=== PATIENT | female | born 1945 | race Caucasian/White ===

== ENCOUNTER 2017-10-26 19:38 | Inpatient (IN) | payer OTHER, MEDICARE, MEDICAID ==
[~2017-10-26] VITALS: Ht 157.5 cm; Wt 83.5 kg
[~2017-10-26 19:38] MED LIST: ATORVASTATIN CA40 MG PO; BUMETANIDE0.25 MG/1 PO; DOLOPHINE HCL10 MG PO; GABAPENTIN 100100 MG PO; HYDROCHLOROTHIA25 M2 PO; HYZAAR 50-12.51 TAB PO; JANUMET 50-5001 EACH PO; KEFLEX500 MG PO; KLOR-CON 1010 MEQ PO; LEVOTHYROXINE0.05 MG PO; MEDROLDOSEPACK PO; METHADONE HCL 110 M1 PO; PEPCID20 MG PO; PROAIR HFA8.5 GM; SYMBICORT160 MCG/4. INH; TRAZODONE HCL50 MG PO; XARELTO15 MG PO
[2017-10-26 19:44] VITALS: BP 169/93
[2017-10-26 20:05] LABS: ABSOLUTE BASOPHILS 0.1 thou/uL (0.0-0.2); ABSOLUTE EOSINOPHILS 0.2 thou/uL (0.0-0.7); ABSOLUTE LYMPHOCYTES 2.1 thou/uL (0.8-5.3); ABSOLUTE NEUTROPHILS 5.4 thou/uL (1.6-8.1); EOSINOPHILS 1.9 %; HEMATOCRIT 41.3 % (37.0-47.0); HEMOGLOBIN 13.5 gm/dL (12.0-15.0); LYMPHOCYTES 24.2 %; MCH 29.6 pg (26.0-34.0); MCHC 32.7 g/dL (28.0-37.0); MCV 90.5 fL (80.0-100.0); MONOCYTES 11.5 %; MPV 7.5 fl. (7.2-11.1); NUCLEATED RBCS 0 /100WBC; PLATELET COUNT* 337 thou/uL (150-400); POLYS 61.4 %; RBC 4.56 mil/uL (4.20-5.00); RDW-CV 13.5 % (10.5-14.5); WBC 8.9 thou/uL (4.0-11.0)
[2017-10-26 20:13] LABS: ANION GAP < 0 mmol/L (7-16); BUN 10 mg/dL (7-18); CALCIUM 8.7 mg/dL (8.5-10.1); CHLORIDE 100 mmol/L (98-107); CO2 39 mmol/L (21-32); CREATININE 0.5 mg/dL (0.6-1.3); GLUCOSE 247 mg/dL (70-99); POTASSIUM 4.3 mmol/L (3.5-5.1); SODIUM 138 mmol/L (136-145)
[2017-10-26 20:15] LABS: APTT 25.4 Seconds (25.0-31.3); PROTIME 9.4 Seconds (9.20-11.50)
[2017-10-26 20:23] LABS: ALBUMIN 3.1 g/dL (3.4-5.0); ALKALINE PHOSPHATASE 103 U/L (46-116); LIPASE 55 U/L (73-393); MAGNESIUM 2.2 mg/dL (1.8-2.4); NT-PRO BRAIN NAT PEPTIDE 92 pg/mL (<300); SGOT 6 U/L (15-37); SGPT 13 U/L (30-65); TOTAL BILIRUBIN 0.3 mg/dL (<0.1-1.0); TOTAL PROTEIN 6.9 g/dL (6.4-8.2); TROPONIN-I LEVEL <0.06 ng/mL (<0.06)
[2017-10-26 22:42] VITALS: BP 130/76
[2017-10-26 22:50] VITALS: BP 136/74
[2017-10-26 22:54] LABS: BE 9.5 mmol/L (-2 to +3); HCO3 39.3 mmol/L (22.0-26.0); pH 7.312 (7.340-7.450)
[2017-10-26 22:55] LABS: PCO2 79.4 mmHg (35.0-45.0); PO2 320.5 mmHg (75.0-100.0)
[2017-10-26] MEDS ORDERED: XANAX 0.5 MG0.5 MG PO (23:07)
[2017-10-26] MEDS ORDERED: VICODIN 5-3001 EACH PO (23:08)
[2017-10-26] MEDS ORDERED: ADVAIR HFA 230M12 GM INH (23:10)
[2017-10-27 04:00] VITALS: BP 117/67
[2017-10-27 07:30] VITALS: BP 109/57
--- NOTE | 2017-10-27 10:08 | EKG ---
[place] [address] ELECTROCARDIOGRAM REPORT Name: BREANA GALEAS Room: [address] IN [facility].#: [id number] Admission: 10/26/17 Attend Phys: Marian Cosme MD Discharge: Date of : 45 Report #: [id number] THIS REPORT FOR: //name// [facility] ED Test Date: 2017-10-26 Test Time: 20:05:54 Pat Name: BREANA GALEAS Department: Room: Gender: F Ob Tech: AYDIN : 1945 Requested By: Mark Zabala Order Number: [id number] MD: Morgan Lima Measurements Intervals [place] Rate: 99 P: 76 OR: 138 QRS: 83 QRSD: 85 T: 70 QT: 335 QTc: 430 Interpretive Statements Sinus rhythm Borderline right axis deviation Borderline low voltage, extremity leads Baseline wander in lead(s) V6 Compared to ECG 02/06/2016 22:04:22 Atrial premature complex(es) no longer present Electronically Signed On 10-27-2017 10:08:37 CDT by Morgan Lima [email or web address] <ELECTRONICALLY SIGNED> By: Morgan Lima MD, FACC 10/27/17 1008 04 04 Morgan Lima MD, [facility] /EPI
[2017-10-27 11:24] LABS: BE 8.3 mmol/L (-2 to +3); HCO3 35.6 mmol/L (22.0-26.0); PO2 64.6 mmHg (75.0-100.0); pH 7.386 (7.340-7.450)
[2017-10-27 11:27] LABS: PCO2 60.8 mmHg (35.0-45.0)
[2017-10-27 12:00] VITALS: BP 136/50
[2017-10-27 16:00] VITALS: BP 130/73
[2017-10-27 20:00] VITALS: BP 130/67
[2017-10-27 23:48] VITALS: BP 110/53
[2017-10-28 03:29] VITALS: BP 128/71
[2017-10-28 04:06] LABS: BE 8.1 mmol/L (-2 to +3); HCO3 34.7 mmol/L (22.0-26.0); PO2 65.8 mmHg (75.0-100.0); pH 7.404 (7.340-7.450)
[2017-10-28 04:10] LABS: PCO2 56.7 mmHg (35.0-45.0)
[2017-10-28 07:15] VITALS: BP 135/62
[2017-10-28 12:22] VITALS: BP 141/69
[2017-10-28 15:52] VITALS: BP 132/72
--- NOTE | 2017-10-28 17:20 | 2DMMODE ---
[place] [address] 2 D/M-MODE ECHOCARDIOGRAM Name: BREANA GALEAS Nestor Room: [address] IN [facility] [id number] Admission: 10/26/17 Attend Phys: Marian Cosme, Discharge: Date of : 45 Date of Service: 10/28/17 1719 Report #: [id number] THIS REPORT FOR: //name// APPROVED REPORT Study performed: 10/28/2017 15:56:00 EXAM: Comprehensive 2D, Doppler, and color-flow Echocardiogram Patient Location: In-Patient Room #: 210 Status: routine BSA: 1.83 HR: 95 bpm BP: 132/72 mmHg Rhythm: NSR Other Information Study Quality: Good Indications COPD Dyspnea Respiratory failure 2D Dimensions LVEF(%): 72.43 (>50%) IVSd: 8.02 (7-11mm) LVOT Diam: 19.43 (18-24mm) LVDd: 45.88 mm PWd: 9.29 (7-11mm) Ascending Ao: 30.44 (22-36mm) LVDs: 26.86 (25-40mm) Aortic Root: 29.48 mm Espinoza's LVEF: 72.43 % Volumes Left Atrial Volume (Systole) LA ESV Index: 19.40 mL/m2 Aortic Valve AoV Peak David.: 1.31 m/s AO Peak Gr.: 6.84 mmHg LVOT Max P.17 mmHg AO Mean Gr.: 3.91 mmHg LVOT Mean P.10 mmHg LVOT Max V: 1.14 m/s AO V2 VTI: 23.70 cm LVOT Mean V: 0.65 m/s RADHA (VTI): 2.62 cm2 LVOT V1 VTI: 20.93 [place] [address] 2 D/M-MODE ECHOCARDIOGRAM Name: BREANA GALEAS Room: [address] IN [facility].#: [id number] Admission: 10/26/17 Attend Phys: Marian Cosme, Discharge: Date of : 45 Date of Service: 10/28/17 1719 Report #: [id number] Mitral Valve E/A Ratio: 0.90 MV Decel. Time: 240.35 ms MV E Max David.: 0.89 m/s MV PHT: 69.70 ms MVA (PHT): 3.16 cm2 TDI E/Lateral E': 7.42 E/Medial E': 11.13 Medial E' David.: 0.08 m/s Lateral E' David.: 0.12 m/s Pulmonary Valve PV Peak David.: 0.90 m/s PV Peak Gr.: 3.21 mmHg Tricuspid Valve TR Peak Gr.: 36.16 mmHg RVSP: 41.00 mmHg Left Ventricle The left ventricle is normal size. There is normal LV segmental wall motion. There is normal left ventricular wall thickness. Left ventricular systolic function is normal. The left ventricular ejection fraction is within the normal range. LVEF is 60-65%. Grade I - abnormal relaxation pattern. Right Ventricle The right ventricle is normal size. The right ventricular systolic function is normal. Atria The left atrium size is normal. The right atrium size is normal. Aortic Valve The aortic valve is normal in structure. No aortic regurgitation is present. There is no aortic valvular stenosis. Mitral Valve The mitral valve is normal in structure. Trace mitral regurgitation. No evidence of mitral valve stenosis. Tricuspid Valve The tricuspid valve is normal in structure. Trace tricuspid regurgitation. The RVSP is 40-45 [place] [address] 2 D/M-MODE ECHOCARDIOGRAM Name: BREANA GALEAS Room: [address]#: [id number] Admission: 10/26/17 Attend Phys: Marian Cosme, Discharge: Date of : 45 Date of Service: 10/28/17 1719 Report #: [id number] The pulmonary valve is normal in structure. There is no pulmonic valvular regurgitation. Great Vessels The aortic root is normal in size. IVC is normal in size and collapses with >50% inspiration Pericardium There is no pericardial effusion. <Conclusion> The left ventricle is normal size. There is normal left ventricular wall thickness. Left ventricular systolic function is normal. The left ventricular ejection fraction is within the normal range. LVEF is 60-65%. Grade I - abnormal relaxation pattern. The right ventricle is normal size. The left atrium size is normal. The aortic valve is normal in structure. The mitral valve is normal in structure. The tricuspid valve is normal in structure. IVC is normal in size and collapses with >50% inspiration There is no pericardial effusion. There is normal LV segmental wall motion. <ELECTRONICALLY SIGNED> By: Richar Mora MD, [facility] 10/28/171718 18 18 Richar Mora MD, FACC /INF
[2017-10-29] VITALS: BP 142/77
[2017-10-29 04:03] VITALS: BP 115/59
[2017-10-29 05:06] LABS: HEMATOCRIT 38.7 % (37.0-47.0); HEMOGLOBIN 12.7 gm/dL (12.0-15.0); MCH 29.7 pg (26.0-34.0); MCHC 32.9 g/dL (28.0-37.0); MCV 90.2 fL (80.0-100.0); MPV 7.8 fl. (7.2-11.1); NUCLEATED RBCS 0 /100WBC; PLATELET COUNT* 315 thou/uL (150-400); RBC 4.29 mil/uL (4.20-5.00); RDW-CV 13.2 % (10.5-14.5); WBC 9.8 thou/uL (4.0-11.0)
[2017-10-29 05:38] LABS: ALBUMIN 2.9 g/dL (3.4-5.0); CALCIUM 8.8 mg/dL (8.5-10.1); CREATININE 0.9 mg/dL (0.6-1.3); POTASSIUM 4.1 mmol/L (3.5-5.1); TOTAL BILIRUBIN 0.3 mg/dL (<0.1-1.0)
[2017-10-29 06:19] LABS: ABSOLUTE LYMPHOCYTES 1.3 thou/uL (0.8-5.3); ABSOLUTE MONOCYTES 0.2 thou/uL (0.0-1.2); ABSOLUTE NEUTROPHILS 8.3 thou/uL (1.6-8.1); ANISOCYTOSIS 1+; PLATELET ESTIMATE ADEQUATE; POIKILOCYTOSIS 1+
--- NOTE | 2017-10-29 07:44 | CON ---
[address] [address] CONSULTATION Name: BREANA GALEAS Room: [address] IN M.R.#: [id number] Admission: 10/26/17 Attend Phys: Marian Cosme MD Discharge: Date of : 45 Report #: [id number] THIS REPORT FOR: //name// CC: DR BECKI Cosme Physician staff REQUESTING PHYSICIAN: Dr. Hunter. REASON FOR CONSULTATION: Respiratory failure, history of COPD. DISCUSSION: The patient is a 72-year-old woman with history of underlying COPD. She is O2 dependent. She is a patient of Dr. Crawford and reportedly also sees pulmonary doctors at [facility], though she cannot tell me who the physician is. She was brought to the Emergency Department, was brought in via EMS because of worsening shortness of breath. En route, she was given additional breathing treatments, and her O2 was turned up. She was seen in the Emergency Department, she was hypercapnic with a pCO2 in the 70s. She was placed on BiPAP, which was removed this morning just shortly before my arrival as she wanted it off. She is a very poor historian. I did discuss with Dr. Hunter earlier this morning. She smokes daily. She cannot tell me how much she smokes. She notes in the past she has smoked up to 4-5 packs of cigarettes per day. She has had pulmonary function studies done, though she cannot tell me what they showed. When asked about a sleep study, I cannot get a definitive answer. She comments only that she has "had every test done that can be done." It has been sometime ago she did have bilateral leg DVT. Denies having any PEs. She has been chronically anticoagulated for at least several years. However, would not have any inpatient visits here at [place]. She is extremely vague as to what she has been doing at home as far as her breathing regimen is concerned. She is on O2. She does have a nebulizer, but cannot tell me for sure what medication she puts in this. She apparently has Advair, though it is not clear how compliant she has been with that. She does comment she has an albuterol inhaler, which she uses up to 4 times a day. It does not appear that she is steroid dependent. She does not have any kind of a BiPAP or noninvasive ventilator to use at home at night. She denies ever being intubated. She notes this morning, that she is feeling somewhat better. Denies any chest pain. Has had some minimal cough, bringing up only scant amounts of mucus. It has been clear. Denies [place] [address] CONSULTATION Name: BREANA GALEAS Room: [address] IN .R.#: [id number] Admission: 10/26/17 Attend Phys: Marian Cosme MD Discharge: Date of : 45 Report #: [id number] PAST MEDICAL HISTORY: Remarkable for the COPD as noted. Again, severity unknown. She has had bilateral knee replacements, has had episodes of angioedema several years ago. Diabetes mellitus, chronic back pain with debility. Uses wheelchair a lot, chronic narcotic use. She has had a chronic lower extremity edema, neuropathy, dyslipidemia, prior hysterectomy. SOCIAL HISTORY: Continues to smoke. Unknown how much. Note, she was previously between 4-5 packs of cigarettes per day. 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 FAMILY HISTORY: She does deny any lung problems in her family. However, question the reliability. Denies family history of thromboembolic disease. REVIEW OF SYSTEMS: Attempted to obtain from the patient. She has not been very forthcoming, is very quiet and reserved. She denies any nausea or vomiting. Denies any syncopal episodes. Respiratory HPI as noted above. She does tend towards chronic lower extremity edema. PHYSICAL EXAMINATION: GENERAL APPEARANCE: The patient is a woman who looks chronically ill. She does look older than her stated age. She is awake, but tends very slow to respond. Generally, she is appropriate. Very poor historian. HEENT: Head is normocephalic. Sclerae nonicteric. Mucous membranes look dry. Does not appear to have any thrush. NECK: Negative for adenopathy. Neck veins do look a little full. HEART: Regular. No S3 is heard. Has a grade 1/6 systolic murmur. LUNGS: Show breath sounds to be diminished. She has a prolonged expiratory phase. No wheezing or crackles are heard. She has no clubbing. SKIN: Turgor is fair. ABDOMEN: Mildly obese, but soft, without appreciable hepatosplenomegaly. There is no definite guarding or rebound noted. EXTREMITIES: She has some chronic venous stasis changes noted in lower extremities. She denies any calf pain. NEUROLOGIC: Alert, oriented. LABORATORY AND X-RAY FINDINGS: Blood gases done yesterday evening in the ED revealed a pH of 7.31, a pCO2 of 79, pO2 of 321, bicarbonate of 39, with a saturation of 97% that was on a nonrebreather mask, and she was placed on BiPAP. She is currently on nasal cannula with followup blood gas pending. White blood cell count 8900, hemoglobin 13.5, hematocrit 41.3, platelets are normal. On her chemistry, her bicarbonate is 39, BUN of 10, creatinine of 0.5, potassium is 4.3. Transaminases normal. Albumin 3.1. TSH is pending. ProBNP was 92. A chest x-ray revealed no acute findings. Hemidiaphragms are only minimally flattened. [place] [address] CONSULTATION Name: BREANA GALEAS Room: [address] IN [facility]#: [id number] Admission: 10/26/17 Attend Phys: Marian Cosme MD Discharge: Date of : 45 Report #: [id number] IMPRESSION: 1. Acute respiratory failure, superimposed on chronic respiratory failure. Reviewing the blood gases, it appears she is probably chronically hypercapnic. 2. Chronic obstructive pulmonary disease, suspected as severe. She has been O2 dependent for at least the last 2-3 years if not longer. It also appears hypercapnia, certain amount of it is chronic. May have some unrecognized sleep apnea. Also, with her chronic narcotic use, that will exacerbate her hypercapnia as well. 3. History of bilateral lower extremity deep vein thrombosis. She has been on chronic anticoagulation therapy. Details not clear. 4. Ongoing tobacco abuse. 5. Generalized debility. RECOMMENDATIONS: 1. Follow up blood gases today. Depending on her pH and pCO2, can give recommendations on whether or not BiPAP should be used while she is sleeping. 2. Continue bronchodilator regimen. Since we do not have Advair here, use Brovana in her neb treatments take its place. 3. It is not clear how compliant she is with her regimen at home. 4. If it does appear that she would benefit long-term from sleeping with BiPAP or noninvasive ventilation, I am not sure how compliant she would do with that regimen. 5. Long-term smoking cessation certainly imperative. 6. Agree addressing code status. <ELECTRONICALLY SIGNED> By: Breana Dickson MD 10/29/17 0744 1038 1224Breana Dickson MD /nt
[2017-10-29 08:00] VITALS: BP 157/77
[2017-10-29 11:45] VITALS: BP 137/74
[2017-10-29 16:00] VITALS: BP 175/77
[2017-10-29 20:00] VITALS: BP 119/64
[2017-10-30 03:35] VITALS: BP 105/46
[2017-10-30 04:33] LABS: HEMATOCRIT 38.5 % (37.0-47.0); HEMOGLOBIN 12.6 gm/dL (12.0-15.0); MCH 29.5 pg (26.0-34.0); MCHC 32.7 g/dL (28.0-37.0); MCV 90.2 fL (80.0-100.0); MPV 8.1 fl. (7.2-11.1); RBC 4.26 mil/uL (4.20-5.00); RDW-CV 13.4 % (10.5-14.5); WBC 9.2 thou/uL (4.0-11.0)
[2017-10-30 04:58] LABS: CALCIUM 8.5 mg/dL (8.5-10.1); CREATININE 0.9 mg/dL (0.6-1.3); MAGNESIUM 2.1 mg/dL (1.8-2.4); POTASSIUM 4.4 mmol/L (3.5-5.1)
[2017-10-30 08:00] VITALS: BP 130/65
[2017-10-30 09:20] LABS: BE 9.4 mmol/L (-2 to +3); HCO3 34.6 mmol/L (22.0-26.0); PCO2 47.9 mmHg (35.0-45.0); pH 7.476 (7.340-7.450)
[2017-10-30 09:23] LABS: PO2 53.6 mmHg (75.0-100.0)
[2017-10-30] MEDS ORDERED: SINGULAIR 10 MG10 M1 PO (10:36)
[2017-10-30] MEDS ORDERED: CYMBALTA20 MG PO (10:36)
[2017-10-30] MEDS ORDERED: PREDNISONE 10 M10 MG PO (10:36)
[2017-10-30] MEDS ORDERED: LEVAQUIN 750 M750 MG PO (10:36)
[2017-10-30 16:06] VITALS: BP 128/52
[2017-10-31] VITALS: BP 116/55
[2017-10-31 08:15] VITALS: BP 140/60
[2017-10-31 16:04] VITALS: BP 138/78
[2017-10-31 23:27] VITALS: BP 146/80
[2017-11-01 09:00] VITALS: BP 99/51
[2017-11-01 11:23] VITALS: BP 118/65
[2017-11-01 16:00] VITALS: BP 111/57
[2017-11-01 20:05] VITALS: BP 140/75
[2017-11-02 04:43] LABS: ALBUMIN 2.9 g/dL (3.4-5.0); CALCIUM 8.5 mg/dL (8.5-10.1); CREATININE 0.7 mg/dL (0.6-1.3); POTASSIUM 4.1 mmol/L (3.5-5.1); TOTAL BILIRUBIN 0.4 mg/dL (<0.1-1.0); TOTAL PROTEIN 5.8 g/dL (6.4-8.2)
[2017-11-02 04:50] LABS: ABSOLUTE EOSINOPHILS 0.1 thou/uL (0.0-0.7); ABSOLUTE LYMPHOCYTES 2.6 thou/uL (0.8-5.3); ABSOLUTE MONOCYTES 1.4 thou/uL (0.0-1.2); ABSOLUTE NEUTROPHILS 7.1 thou/uL (1.6-8.1); BASOPHILS 0.1 %; EOSINOPHILS 0.5 %; HEMATOCRIT 41.1 % (37.0-47.0); HEMOGLOBIN 13.7 gm/dL (12.0-15.0); LYMPHOCYTES 23.2 %; MCH 29.8 pg (26.0-34.0); MCHC 33.3 g/dL (28.0-37.0); MCV 89.5 fL (80.0-100.0); MONOCYTES 12.6 %; NUCLEATED RBCS 0 /100WBC; PLATELET COUNT* 365 thou/uL (150-400); POLYS 63.6 %; RBC 4.59 mil/uL (4.20-5.00); RDW-CV 13.4 % (10.5-14.5); WBC 11.2 thou/uL (4.0-11.0)
[2017-11-02 09:00] VITALS: BP 142/68
[2017-11-02 16:16] VITALS: BP 118/61
[2017-11-02 20:15] VITALS: BP 157/70
[2017-11-02] MEDS ORDERED: GABAPENTIN 100100 MG PO (21:13)
[2017-11-03 09:00] VITALS: BP 138/66
[2017-11-03 15:04] VITALS: BP 157/70
[2017-11-03 16:00] VITALS: BP 134/63
[2017-11-03 16:54] VITALS: BP 157/70
== END 2017-11-03 17:00 | DRG 189 ==
LOC: M.ERS 19:38 → M.TBA-ER 21:15 → M.2W 21:15 → M.3W 10-29 15:49
PROVIDERS: Family Medicine; Internal Medicine; Internal Medicine Critical Care Medicine; Internal Medicine Pulmonary Disease; ADMIT Internal Medicine
PROC: 5A09357 Assistance with Respiratory Ventilation, Less than 24 Consecutive Hours, Continuous Positive Airway Pressure (ICD-10-PCS; principal; 2017-10-26)
DX: J96.01 Acute respiratory failure with hypoxia (principal); R65.11 Systemic inflammatory response syndrome (SIRS) of non-infectious origin with acute organ dysfunction; J44.1 Chronic obstructive pulmonary disease with (acute) exacerbation; J44.0 Chronic obstructive pulmonary disease with (acute) lower respiratory infection; J96.02 Acute respiratory failure with hypercapnia; J20.9 Acute bronchitis, unspecified; E66.9 Obesity, unspecified; R53.81 Other malaise; I87.8 Other specified disorders of veins; I10 Essential (primary) hypertension; E11.40 Type 2 diabetes mellitus with diabetic neuropathy, unspecified; E78.5 Hyperlipidemia, unspecified; F44.4 Conversion disorder with motor symptom or deficit; M19.90 Unspecified osteoarthritis, unspecified site; G89.29 Other chronic pain; F32.9 Major depressive disorder, single episode, unspecified; F17.210 Nicotine dependence, cigarettes, uncomplicated; Z96.653 Presence of artificial knee joint, bilateral; Z86.718 Personal history of other venous thrombosis and embolism; Z79.01 Long term (current) use of anticoagulants; Z79.2 Long term (current) use of antibiotics; Z88.8 Allergy status to other drugs, medicaments and biological substances; Z79.51 Long term (current) use of inhaled steroids; Z79.899 Other long term (current) drug therapy; Z68.33 Body mass index [BMI] 33.0-33.9, adult; Z99.81 Dependence on supplemental oxygen; Z90.710 Acquired absence of both cervix and uterus; Z83.6 Family history of other diseases of the respiratory system

== ENCOUNTER 2018-09-03 00:52 | Inpatient (IN) | payer OTHER, MEDICARE, MEDICAID ==
[2018-09-03] VITALS (7 sets, daily range): BP systolic 112–155; BP diastolic 48–77
[~2018-09-03] VITALS: Ht 157.5 cm; Wt 98.0 kg
[~2018-09-03 00:52] MED LIST changes: +ADVAIR HFA 230M12 GM INH; +CYMBALTA20 MG PO; +LEVAQUIN 750 M750 MG PO; -LEVOTHYROXINE0.05 MG PO; +PREDNISONE 10 M10 MG PO; -PROAIR HFA8.5 GM; +PROAIR HFA8.5 GM INH; +SINGULAIR 10 MG10 M1 PO; +SYNTHROID50 MCG PO; +VICODIN 5-3001 EACH PO; +XANAX 0.5 MG0.5 MG PO
[2018-09-03 01:16] LABS: ABSOLUTE BASOPHILS 0.2 thou/uL (0.0-0.2); ABSOLUTE MONOCYTES 1.8 thou/uL (0.0-1.2); ABSOLUTE NEUTROPHILS 14.1 thou/uL (1.6-8.1); BASOPHILS 0.8 %; HEMATOCRIT 40.6 % (37.0-47.0); HEMOGLOBIN 13.2 gm/dL (12.0-15.0); LYMPHOCYTES 15.8 %; MCH 28.9 pg (26.0-34.0); MCHC 32.6 g/dL (28.0-37.0); MCV 88.8 fL (80.0-100.0); MONOCYTES 9.3 %; MPV 7.5 fl. (7.2-11.1); NUCLEATED RBCS 0 /100WBC; PLATELET COUNT* 365 thou/uL (150-400); POLYS 74.1 %; RBC 4.57 mil/uL (4.20-5.00)
[2018-09-03 01:27] LABS: INR 1.1; PROTIME 11.2 Seconds (9.20-11.50)
[2018-09-03 01:34] LABS: ANION GAP 9 mmol/L (7-16); BUN 11 mg/dL (7-18); CALCIUM 8.9 mg/dL (8.5-10.1); CHLORIDE 96 mmol/L (98-107); CO2 31 mmol/L (21-32); CREATININE 0.9 mg/dL (0.6-1.3); GLUCOSE 271 mg/dL (70-99); POTASSIUM 3.7 mmol/L (3.5-5.1); SODIUM 136 mmol/L (136-145); TROPONIN-I LEVEL <0.06 ng/mL (<0.06)
[2018-09-03 01:36] LABS: ALBUMIN 3.1 g/dL (3.4-5.0); ALKALINE PHOSPHATASE 112 U/L (46-116); LIPASE 36 U/L (73-393); MAGNESIUM 1.7 mg/dL (1.8-2.4); NT-PRO BRAIN NAT PEPTIDE 307 pg/mL (<300); SGOT 11 U/L (15-37); SGPT 17 U/L (30-65); TOTAL BILIRUBIN 0.7 mg/dL (<0.1-1.0); TOTAL PROTEIN 7.5 g/dL (6.4-8.2)
[2018-09-03] MEDS ORDERED: NORCO 7.5-3251 EACH PO (04:44)
--- NOTE | 2018-09-03 10:16 | EKG ---
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
[2018-09-04] VITALS: BP 94/41
[2018-09-04 04:00] VITALS: BP 106/54; BP 128/69
[2018-09-04 07:09] LABS: ABSOLUTE EOSINOPHILS 0.1 thou/uL (0.0-0.7); ABSOLUTE LYMPHOCYTES 2.2 thou/uL (0.8-5.3); ABSOLUTE MONOCYTES 1.4 thou/uL (0.0-1.2); ABSOLUTE NEUTROPHILS 8.6 thou/uL (1.6-8.1); BASOPHILS 0.1 %; EOSINOPHILS 0.7 %; HEMATOCRIT 33.7 % (37.0-47.0); MCH 29.4 pg (26.0-34.0); MCHC 32.9 g/dL (28.0-37.0); MCV 89.2 fL (80.0-100.0); MPV 7.3 fl. (7.2-11.1); NUCLEATED RBCS 0 /100WBC; PLATELET COUNT* 314 thou/uL (150-400); POLYS 70.2 %; RBC 3.78 mil/uL (4.20-5.00); RDW-CV 12.9 % (10.5-14.5); WBC 12.3 thou/uL (4.0-11.0)
[2018-09-04 07:14] LABS: HEMOGLOBIN 11.1 gm/dL (12.0-15.0)
[2018-09-04 07:21] LABS: ALBUMIN 2.4 g/dL (3.4-5.0); CALCIUM 8.2 mg/dL (8.5-10.1); CREATININE 0.8 mg/dL (0.6-1.3); POTASSIUM 3.2 mmol/L (3.5-5.1); TOTAL BILIRUBIN 0.1 mg/dL (<0.1-1.0); TOTAL PROTEIN 6.1 g/dL (6.4-8.2)
[2018-09-04 07:51] VITALS: BP 128/58
[2018-09-04 16:29] VITALS: BP 140/75
[2018-09-05 04:31] LABS: ABSOLUTE BASOPHILS 0.1 thou/uL (0.0-0.2); ABSOLUTE EOSINOPHILS 0.4 thou/uL (0.0-0.7); ABSOLUTE LYMPHOCYTES 2.3 thou/uL (0.8-5.3); ABSOLUTE MONOCYTES 1.4 thou/uL (0.0-1.2); ABSOLUTE NEUTROPHILS 7.1 thou/uL (1.6-8.1); BASOPHILS 0.5 %; EOSINOPHILS 3.3 %; HEMATOCRIT 37.9 % (37.0-47.0); HEMOGLOBIN 12.2 gm/dL (12.0-15.0); LYMPHOCYTES 20.5 %; MCH 28.7 pg (26.0-34.0); MCHC 32.3 g/dL (28.0-37.0); MONOCYTES 12.3 %; NUCLEATED RBCS 0 /100WBC; POLYS 63.4 %; RBC 4.25 mil/uL (4.20-5.00); RDW-CV 12.8 % (10.5-14.5); WBC 11.2 thou/uL (4.0-11.0)
[2018-09-05 04:42] LABS: PLATELET COUNT* 391 thou/uL (150-400)
[2018-09-05 07:54] VITALS: BP 134/61
[2018-09-05 16:44] VITALS: BP 149/68
[2018-09-05 21:12] LABS: URINE BILIRUBIN NEGATIVE (Negative); URINE BLOOD NEGATIVE (Negative); URINE CLARITY CLEAR; URINE COLOR YELLOW; URINE GLUCOSE-RANDOM TRACE (Negative); URINE KETONES TRACE (Negative); URINE LEUKOCYTES-REFLEX NEGATIVE (Negative); URINE NITRITE-REFLEX NEGATIVE (Negative); URINE PROTEIN NEGATIVE (Negative); URINE SPECIFIC GRAVITY 1.015 (1.005-1.030)
[2018-09-06] VITALS: BP 149/65
[2018-09-06 08:30] VITALS: BP 132/68
[2018-09-06 16:51] VITALS: BP 124/70
[2018-09-06 20:30] VITALS: BP 149/83
[2018-09-07 07:40] VITALS: BP 139/65
[2018-09-07] MEDS ORDERED: AZITHROMYCIN 2250 MG PO (09:37)
[2018-09-07] MEDS ORDERED: CEFUROXIME250 MG PO (09:37)
--- NOTE | 2018-09-07 10:02 | EKG ---
[place] [address] ELECTROCARDIOGRAM REPORT Name: BREANA GALEAS Room: [address] ADM IN M.R.#: [id number] Admission: 09/03/18 Attend Phys: Mary Ellen Rendon MD Discharge: Date of : 45 Report #: [id number] THIS REPORT FOR: //name// 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 : 1945 Requested By: Mary Ellen Rendon Order Number: [id number] MD: Kilo Varela Measurements Intervals [place] Rate: 90 P: 73 [place]: 137 QRS: 59 QRSD: 94 T: 49 QT: 355 QTc: 435 Interpretive Statements Sinus rhythm Compared to ECG 09/03/2018 01:14:37 Sinus tachycardia no longer present Electronically Signed On 09-07-2018 10:02:44 CDT by Kilo Varela [email or web address] <ELECTRONICALLY SIGNED> By: Kilo Varela MD, [facility] 09/07/18 [facility] Kilo Varela MD, FAC /EPI
[2018-09-07 11:33] VITALS: BP 137/81
[2018-09-07 20:50] VITALS: BP 163/88
[2018-09-08 07:19] VITALS: BP 136/66
[2018-09-08 16:00] VITALS: BP 156/87
[2018-09-08 16:00] LABS: HEMATOCRIT 39.4 % (37.0-47.0); MCH 29.3 pg (26.0-34.0); MCHC 32.9 g/dL (28.0-37.0); MPV 7.7 fl. (7.2-11.1); RBC 4.43 mil/uL (4.20-5.00); RDW-CV 12.7 % (10.5-14.5); WBC 12.7 thou/uL (4.0-11.0)
[2018-09-08 16:19] LABS: URINE BILIRUBIN NEGATIVE (Negative); URINE BLOOD NEGATIVE (Negative); URINE CLARITY CLEAR; URINE COLOR YELLOW; URINE GLUCOSE-RANDOM TRACE (Negative); URINE KETONES TRACE (Negative); URINE LEUKOCYTES-REFLEX NEGATIVE (Negative); URINE NITRITE-REFLEX NEGATIVE (Negative); URINE PROTEIN NEGATIVE (Negative); URINE UROBILINOGEN 0.2 E.U./dl (0.2-1.0)
[2018-09-08 16:23] LABS: ALBUMIN 2.9 g/dL (3.4-5.0); CALCIUM 9.4 mg/dL (8.5-10.1); POTASSIUM 3.4 mmol/L (3.5-5.1); TOTAL BILIRUBIN 0.3 mg/dL (<0.1-1.0); TOTAL PROTEIN 7.5 g/dL (6.4-8.2)
[2018-09-08 19:40] VITALS: BP 146/81
[2018-09-09 07:16] VITALS: BP 142/80
[2018-09-09 17:43] VITALS: BP 143/74
[2018-09-09 20:00] VITALS: BP 148/83
[2018-09-10 07:19] VITALS: BP 138/69
[2018-09-10 09:47] VITALS: BP 138/69
[2018-09-10 13:32] VITALS: BP 133/80
[2018-09-10 15:00] VITALS: BP 126/58
[2018-09-10 23:00] VITALS: BP 147/77
[2018-09-11 08:20] VITALS: BP 155/76
[2018-09-11] MEDS ORDERED: NORCO 7.5-3251 EACH PO (09:30)
[2018-09-11] MEDS ORDERED: ALPRAZOLAM0.5 M2 PO (09:30)
[2018-09-11] MEDS ORDERED: IPRAT-ALBUT 0.5-3 ML INH (16:02)
[2018-09-11] MEDS ORDERED: GUAIFENESIN DM1 EACH PO (16:04)
== END 2018-09-11 16:45 | DRG 871 ==
LOC: M.ERS 00:52 → M.3W 02:01 → M.TBA-ER 02:01 → M.3W 03:53
PROVIDERS: Emergency Medicine Emergency Medical Services; Internal Medicine; ADMIT Family Medicine
DX: A41.9 Sepsis, unspecified organism (principal); J15.6 Pneumonia due to other Gram-negative bacteria; J96.20 Acute and chronic respiratory failure, unspecified whether with hypoxia or hypercapnia; J44.1 Chronic obstructive pulmonary disease with (acute) exacerbation; G82.20 Paraplegia, unspecified; J44.0 Chronic obstructive pulmonary disease with (acute) lower respiratory infection; I10 Essential (primary) hypertension; E78.5 Hyperlipidemia, unspecified; Z96.652 Presence of left artificial knee joint; G89.29 Other chronic pain; M54.9 Dorsalgia, unspecified; E78.00 Pure hypercholesterolemia, unspecified; E11.40 Type 2 diabetes mellitus with diabetic neuropathy, unspecified; I87.8 Other specified disorders of veins; E03.9 Hypothyroidism, unspecified; Z86.718 Personal history of other venous thrombosis and embolism; Z88.8 Allergy status to other drugs, medicaments and biological substances; Z88.6 Allergy status to analgesic agent; Z83.6 Family history of other diseases of the respiratory system; Z87.891 Personal history of nicotine dependence; Z79.899 Other long term (current) drug therapy

== ENCOUNTER 2019-03-01 02:24 | Observation (INO) | payer OTHER, MEDICARE, MEDICAID ==
[~2019-03-01] VITALS: Ht 157.5 cm; Wt 97.1 kg
[~2019-03-01 02:24] MED LIST changes: +ALPRAZOLAM0.5 M2 PO; +AZITHROMYCIN 2250 MG PO; +CEFUROXIME250 MG PO; +GUAIFENESIN DM1 EACH PO; +IPRAT-ALBUT 0.5-3 ML INH; +NORCO 7.5-3251 EACH PO
[2019-03-01 02:28] VITALS: BP 179/94
[2019-03-01 03:08] LABS: ABSOLUTE BASOPHILS 0.1 thou/uL (0.0-0.2); ABSOLUTE EOSINOPHILS 0.3 thou/uL (0.0-0.7); ABSOLUTE LYMPHOCYTES 2.6 thou/uL (0.8-5.3); ABSOLUTE MONOCYTES 1.1 thou/uL (0.0-1.2); ABSOLUTE NEUTROPHILS 6.2 thou/uL (1.6-8.1); BASOPHILS 0.6 %; EOSINOPHILS 2.7 %; HEMATOCRIT 39.2 % (37.0-47.0); HEMOGLOBIN 12.9 gm/dL (12.0-15.0); LYMPHOCYTES 25.4 %; MCH 28.8 pg (26.0-34.0); MCHC 32.8 g/dL (28.0-37.0); MCV 87.7 fL (80.0-100.0); MPV 7.5 fl. (7.2-11.1); NUCLEATED RBCS 0 /100WBC; PLATELET COUNT* 370 thou/uL (150-400); POLYS 60.3 %; RBC 4.48 mil/uL (4.20-5.00); RDW-CV 13.9 % (10.5-14.5); WBC 10.3 thou/uL (4.0-11.0)
[2019-03-01 03:18] LABS: ANION GAP 5 mmol/L (7-16); BUN 21 mg/dL (7-18); CALCIUM 8.9 mg/dL (8.5-10.1); CHLORIDE 100 mmol/L (98-107); CO2 33 mmol/L (21-32); CREATININE 0.6 mg/dL (0.6-1.3); GLUCOSE 295 mg/dL (70-99); POTASSIUM 3.5 mmol/L (3.5-5.1); SODIUM 138 mmol/L (136-145)
[2019-03-01 03:19] LABS: APTT 24.4 Seconds (25.0-31.3); PROTIME 9.8 Seconds (9.20-11.50)
[2019-03-01 03:28] LABS: ALKALINE PHOSPHATASE 110 U/L (46-116); LIPASE 45 U/L (73-393); NT-PRO BRAIN NAT PEPTIDE 69 pg/mL (<300); SGOT 7 U/L (15-37); SGPT 23 U/L (30-65); TOTAL BILIRUBIN 0.2 mg/dL (<0.1-1.0); TOTAL PROTEIN 6.8 g/dL (6.4-8.2); TROPONIN-I LEVEL <0.06 ng/mL (<0.06)
[2019-03-01 10:00] VITALS: BP 168/79
[2019-03-01 11:54] VITALS: BP 168/79
[2019-03-01 12:38] VITALS: BP 169/92
[2019-03-01] MEDS ORDERED: HYDROCODONE-AP1 EA11 PO (14:20)
[2019-03-01 14:35] LABS: BE -0.7 mmol/L (-2 to +3); PCO2 42.1 mmHg (35.0-45.0); PO2 89.5 mmHg (75.0-100.0); pH 7.382 (7.340-7.450)
[2019-03-01] MEDS ORDERED: JANUMET 50-5001 EACH PO (14:48)
[2019-03-01] MEDS ORDERED: LEXAPRO5 MG PO (14:49)
[2019-03-01] MEDS ORDERED: NEURONTIN 300300 M1 PO (14:51)
--- NOTE | 2019-03-01 16:54 | EKG ---
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: [place] : 1945 Requested By: Mark Zabala Order Number: [id number] MD: Jabier Nassar Measurements Intervals [place] Rate: 112 P: 81 [place]: 160 QRS: 88 QRSD: 96 T: 66 QT: 336 QTc: 459 Interpretive Statements Sinus tachycardia Borderline right axis deviation Borderline low voltage, extremity leads Compared to ECG 09/06/2018 00:42:03 Sinus rhythm no longer present Electronically Signed On 03-01-2019 16:54:24 CDT by Jabier Nassar [email or web address] <ELECTRONICALLY SIGNED> By: Jabier Nassar MD, [facility] 03/01/19 1654 0231 0231 Jabier Nassar MD, [facility] /EPI
[2019-03-01 20:00] VITALS: BP 134/73
[2019-03-01 23:59] VITALS: BP 130/75
[2019-03-02 04:00] VITALS: BP 148/80
[2019-03-02 04:25] LABS: ABSOLUTE LYMPHOCYTES 1.2 thou/uL (0.8-5.3); ABSOLUTE MONOCYTES 1.1 thou/uL (0.0-1.2); ABSOLUTE NEUTROPHILS 6.9 thou/uL (1.6-8.1); BASOPHILS 0.5 %; EOSINOPHILS 0.1 %; HEMATOCRIT 36.8 % (37.0-47.0); HEMOGLOBIN 12.3 gm/dL (12.0-15.0); LYMPHOCYTES 12.8 %; MCHC 33.3 g/dL (28.0-37.0); MCV 86.9 fL (80.0-100.0); MPV 7.5 fl. (7.2-11.1); NUCLEATED RBCS 0 /100WBC; PLATELET COUNT* 360 thou/uL (150-400); POLYS 74.6 %; RBC 4.24 mil/uL (4.20-5.00); WBC 9.2 thou/uL (4.0-11.0)
[2019-03-02 05:01] LABS: ANION GAP 4 mmol/L (7-16); BUN 19 mg/dL (7-18); CALCIUM 8.8 mg/dL (8.5-10.1); CHLORIDE 102 mmol/L (98-107); CHOLESTEROL 232 mg/dL (<200); CO2 32 mmol/L (21-32); CREATININE 0.6 mg/dL (0.6-1.3); GLUCOSE 197 mg/dL (70-99); HDL CHOLESTEROL 72 mg/dL (>40); LDL CHOLESTEROL 148 mg/dL (<100); POTASSIUM 4.3 mmol/L (3.5-5.1); SODIUM 138 mmol/L (136-145); TC:HDL 3.2 Ratio (Not establshd); TRIGLYCERIDE 60 mg/dL (<150); VLDL 12 mg/dL (<40)
[2019-03-02 05:02] LABS: SERUM ASSESSMENT Clear
[2019-03-02 08:00] VITALS: BP 136/66
[2019-03-02] MEDS ORDERED: LIPITOR40 MG PO (12:13)
[2019-03-02] MEDS ORDERED: CYMBALTA30 MG PO (12:14)
[2019-03-02] MEDS ORDERED: AZITHROMYCIN 2250 MG PO (12:14)
[2019-03-02] MEDS ORDERED: PREDNISONE 20 M20 MG PO (12:15)
[2019-03-02 14:23] VITALS: BP 136/66
[2019-03-03 07:08] LABS: GLYCOHEMOGLOBIN (HGB A1C) 10.7 % (4.8-5.6)
== END 2019-03-02 15:15 | disposition home or self-care (01) ==
LOC: M.ERS 02:24 → M.2W 06:00 → M.TBA-ER 06:00 → M.2W 11:17 → M.TBA-ER 11:17 → M.2W 12:08
PROVIDERS: Family Medicine; ADMIT Internal Medicine
DX: J44.1 Chronic obstructive pulmonary disease with (acute) exacerbation (principal); J96.11 Chronic respiratory failure with hypoxia; J96.01 Acute respiratory failure with hypoxia; G47.33 Obstructive sleep apnea (adult) (pediatric); E11.40 Type 2 diabetes mellitus with diabetic neuropathy, unspecified; I10 Essential (primary) hypertension; E78.5 Hyperlipidemia, unspecified; F41.9 Anxiety disorder, unspecified; G89.29 Other chronic pain; M54.9 Dorsalgia, unspecified; M19.90 Unspecified osteoarthritis, unspecified site; I87.8 Other specified disorders of veins; Z86.718 Personal history of other venous thrombosis and embolism; Z79.01 Long term (current) use of anticoagulants; Z79.899 Other long term (current) drug therapy; Z87.891 Personal history of nicotine dependence

== ENCOUNTER 2019-03-10 14:54 | Inpatient (IN) | payer OTHER, MEDICARE, MEDICAID ==
[~2019-03-10] VITALS: Ht 157.5 cm; Wt 98.9 kg
[~2019-03-10 14:54] MED LIST changes: +CYMBALTA30 MG PO; +HYDROCODONE-AP1 EA11 PO; +LEXAPRO5 MG PO; +LIPITOR40 MG PO; +NEURONTIN 300300 M1 PO; +PREDNISONE 20 M20 MG PO
[2019-03-10 14:58] VITALS: BP 175/88
[2019-03-10 16:01] LABS: ABSOLUTE BASOPHILS 0.2 thou/uL (0.0-0.2); ABSOLUTE EOSINOPHILS 0.2 thou/uL (0.0-0.7); ABSOLUTE LYMPHOCYTES 2.4 thou/uL (0.8-5.3); ABSOLUTE NEUTROPHILS 8.6 thou/uL (1.6-8.1); BASOPHILS 1.3 %; EOSINOPHILS 1.3 %; HEMATOCRIT 43.2 % (37.0-47.0); LYMPHOCYTES 19.7 %; MCH 28.5 pg (26.0-34.0); MCHC 32.3 g/dL (28.0-37.0); MCV 88.3 fL (80.0-100.0); MONOCYTES 8.1 %; MPV 7.7 fl. (7.2-11.1); NUCLEATED RBCS 0 /100WBC; PLATELET COUNT* 423 thou/uL (150-400); POLYS 69.6 %; RDW-CV 13.6 % (10.5-14.5); WBC 12.3 thou/uL (4.0-11.0)
[2019-03-10 16:10] LABS: PROTIME 10.4 Seconds (9.20-11.50)
[2019-03-10 16:21] LABS: ANION GAP 4 mmol/L (7-16); BUN 12 mg/dL (7-18); CALCIUM 8.8 mg/dL (8.5-10.1); CHLORIDE 95 mmol/L (98-107); CO2 36 mmol/L (21-32); CREATININE 0.8 mg/dL (0.6-1.3); GLUCOSE 350 mg/dL (70-99); POTASSIUM 3.4 mmol/L (3.5-5.1); SODIUM 135 mmol/L (136-145)
[2019-03-10 16:25] LABS: ALBUMIN 3.1 g/dL (3.4-5.0); ALKALINE PHOSPHATASE 96 U/L (46-116); LIPASE 65 U/L (73-393); MAGNESIUM 1.9 mg/dL (1.8-2.4); NT-PRO BRAIN NAT PEPTIDE 143 pg/mL (<300); SGOT 8 U/L (15-37); SGPT 24 U/L (30-65); TOTAL BILIRUBIN 0.3 mg/dL (<0.1-1.0); TROPONIN-I LEVEL <0.06 ng/mL (<0.06)
[2019-03-10 18:50] VITALS: BP 160/89
[2019-03-10 20:00] VITALS: BP 147/57
[2019-03-10] MEDS ORDERED: LEXAPRO5 MG PO (20:47)
[2019-03-10] MEDS ORDERED: KLOR-CON M1010 MEQ PO (20:49)
[2019-03-10] MEDS ORDERED: NORCO 7.5-3251 EACH PO (20:49)
[2019-03-11] VITALS (7 sets, daily range): BP systolic 122–169; BP diastolic 43–72
[2019-03-11 05:19] LABS: HEMATOCRIT 39.8 % (37.0-47.0); HEMOGLOBIN 12.7 gm/dL (12.0-15.0); MCH 28.1 pg (26.0-34.0); MCV 87.9 fL (80.0-100.0); NUCLEATED RBCS 0 /100WBC; PLATELET COUNT* 373 thou/uL (150-400); RBC 4.52 mil/uL (4.20-5.00); RDW-CV 13.7 % (10.5-14.5); WBC 12.6 thou/uL (4.0-11.0)
[2019-03-11 05:37] LABS: CALCIUM 8.8 mg/dL (8.5-10.1); CREATININE 0.9 mg/dL (0.6-1.3)
[2019-03-11 07:06] LABS: ABSOLUTE LYMPHOCYTES 0.4 thou/uL (0.8-5.3); ABSOLUTE NEUTROPHILS 12.2 thou/uL (1.6-8.1); PLATELET ESTIMATE ADEQUATE
--- NOTE | 2019-03-11 10:34 | EKG ---
[place] [address] ELECTROCARDIOGRAM REPORT Name: BREANA GALEAS Room: [address] ADM IN [facility].#: [id number] Admission: 03/10/19 Attend Phys: Bharat Abraham MD Discharge: Date of : 45 Report #: [id number] THIS REPORT FOR: //name// [facility] ED Test Date: 2019-03-10 Test Time: 15:02:23 Pat Name: BREANA GALEAS Department: Room: [facility] Gender: F Manager Statistical: : 1945 Requested By: Pablito Salas Order Number: [id number] MD: Morgan Lima Measurements Intervals [place] Rate: 92 P: 85 [place]: 143 QRS: 66 QRSD: 104 T: 66 QT: 369 QTc: 457 Interpretive Statements Sinus tachycardia Atrial premature complexes Borderline low voltage, extremity leads Compared to ECG 03/01/2019 02:31:42 Atrial premature complex(es) now present Electronically Signed On 03-11-2019 10:33:43 CDT by Morgan Lima [email or web address] <ELECTRONICALLY SIGNED> By: Morgan Lima MD, [facility] 03/11/19 1033 1502 1502 Morgan Lima MD, [facility] /EPI
[2019-03-12 04:00] VITALS: BP 140/76
[2019-03-12 04:57] LABS: ABSOLUTE LYMPHOCYTES 0.6 thou/uL (0.8-5.3); ABSOLUTE MONOCYTES 0.4 thou/uL (0.0-1.2); ABSOLUTE NEUTROPHILS 18.2 thou/uL (1.6-8.1); BASOPHILS 0.1 %; HEMATOCRIT 39.1 % (37.0-47.0); HEMOGLOBIN 12.7 gm/dL (12.0-15.0); LYMPHOCYTES 3.2 %; MCH 28.2 pg (26.0-34.0); MCHC 32.4 g/dL (28.0-37.0); MONOCYTES 1.9 %; NUCLEATED RBCS 0 /100WBC; PLATELET COUNT* 368 thou/uL (150-400); POLYS 94.8 %; RDW-CV 13.6 % (10.5-14.5); WBC 19.2 thou/uL (4.0-11.0)
[2019-03-12 05:22] LABS: CALCIUM 8.7 mg/dL (8.5-10.1); CREATININE 0.8 mg/dL (0.6-1.3)
[2019-03-12 08:00] VITALS: BP 129/64
[2019-03-12 11:30] VITALS: BP 130/61
[2019-03-12 18:09] VITALS: BP 136/67
[2019-03-12 21:00] VITALS: BP 131/70
[2019-03-13] VITALS (7 sets, daily range): BP systolic 120–181; BP diastolic 49–89
[2019-03-13 05:40] LABS: ABSOLUTE BASOPHILS 0.1 thou/uL (0.0-0.2); ABSOLUTE LYMPHOCYTES 0.8 thou/uL (0.8-5.3); ABSOLUTE MONOCYTES 0.9 thou/uL (0.0-1.2); ABSOLUTE NEUTROPHILS 17.8 thou/uL (1.6-8.1); BASOPHILS 0.4 %; HEMATOCRIT 41.3 % (37.0-47.0); HEMOGLOBIN 13.4 gm/dL (12.0-15.0); MCH 28.1 pg (26.0-34.0); MCHC 32.4 g/dL (28.0-37.0); MCV 86.9 fL (80.0-100.0); MONOCYTES 4.6 %; MPV 7.7 fl. (7.2-11.1); NUCLEATED RBCS 0 /100WBC; PLATELET COUNT* 420 thou/uL (150-400); RBC 4.75 mil/uL (4.20-5.00); RDW-CV 14.2 % (10.5-14.5); WBC 19.6 thou/uL (4.0-11.0)
[2019-03-13 06:03] LABS: CALCIUM 8.8 mg/dL (8.5-10.1); CREATININE 0.9 mg/dL (0.6-1.3); POTASSIUM 4.2 mmol/L (3.5-5.1)
[2019-03-14 04:08] VITALS: BP 147/75
[2019-03-14 04:27] LABS: ABSOLUTE LYMPHOCYTES 3.1 thou/uL (0.8-5.3); ABSOLUTE MONOCYTES 1.9 thou/uL (0.0-1.2); ABSOLUTE NEUTROPHILS 11.3 thou/uL (1.6-8.1); BASOPHILS 0.2 %; EOSINOPHILS 0.1 %; HEMATOCRIT 39.5 % (37.0-47.0); HEMOGLOBIN 12.7 gm/dL (12.0-15.0); LYMPHOCYTES 18.9 %; MCH 27.9 pg (26.0-34.0); MCHC 32.2 g/dL (28.0-37.0); MCV 86.7 fL (80.0-100.0); MONOCYTES 11.5 %; MPV 7.8 fl. (7.2-11.1); NUCLEATED RBCS 0 /100WBC; PLATELET COUNT* 378 thou/uL (150-400); POLYS 69.3 %; RBC 4.55 mil/uL (4.20-5.00); RDW-CV 13.9 % (10.5-14.5); WBC 16.3 thou/uL (4.0-11.0)
[2019-03-14 04:33] LABS: CALCIUM 8.6 mg/dL (8.5-10.1); CREATININE 0.8 mg/dL (0.6-1.3); POTASSIUM 3.8 mmol/L (3.5-5.1)
[2019-03-14 08:00] VITALS: BP 138/87
[2019-03-14] MEDS ORDERED: CEFDINIR300 MG PO (08:23)
[2019-03-14] MEDS ORDERED: PREDNISONE 20 M20 MG PO (08:23)
[2019-03-14] MEDS ORDERED: IPRAT-ALBUT 0.5-3 ML INH (08:23)
[2019-03-14] MEDS ORDERED: ALPRAZOLAM0.5 M2 PO (08:24)
[2019-03-14] MEDS ORDERED: HYDROCODONE-AP1 EA11 PO (08:24)
[2019-03-14] MEDS ORDERED: HUMALOG100 UNIT/1 SUBQ (08:26)
[2019-03-14 11:30] VITALS: BP 146/78
[2019-03-14 13:46] LABS: GLYCOHEMOGLOBIN (HGB A1C) 10.8 % (4.8-5.6)
[2019-03-14 14:15] VITALS: BP 146/78
== END 2019-03-14 16:34 | DRG 177 ==
LOC: M.ERS 14:54 → M.2W 17:28 → M.TBA-ER 17:28 → M.2W 19:13
PROVIDERS: Emergency Medicine Emergency Medical Services; ADMIT Internal Medicine
PROC: 5A09357 Assistance with Respiratory Ventilation, Less than 24 Consecutive Hours, Continuous Positive Airway Pressure (ICD-10-PCS; principal; 2019-03-11)
PROC: 5A09357 Assistance with Respiratory Ventilation, Less than 24 Consecutive Hours, Continuous Positive Airway Pressure (ICD-10-PCS; 2019-03-12)
DX: J15.6 Pneumonia due to other Gram-negative bacteria (principal); E11.00 Type 2 diabetes mellitus with hyperosmolarity without nonketotic hyperglycemic-hyperosmolar coma (NKHHC); J96.21 Acute and chronic respiratory failure with hypoxia; J96.22 Acute and chronic respiratory failure with hypercapnia; R65.11 Systemic inflammatory response syndrome (SIRS) of non-infectious origin with acute organ dysfunction; J44.1 Chronic obstructive pulmonary disease with (acute) exacerbation; E87.1 Hypo-osmolality and hyponatremia; J44.0 Chronic obstructive pulmonary disease with (acute) lower respiratory infection; D68.59 Other primary thrombophilia; I10 Essential (primary) hypertension; Z96.652 Presence of left artificial knee joint; M19.90 Unspecified osteoarthritis, unspecified site; G89.29 Other chronic pain; M54.9 Dorsalgia, unspecified; E78.00 Pure hypercholesterolemia, unspecified; E11.40 Type 2 diabetes mellitus with diabetic neuropathy, unspecified; F41.9 Anxiety disorder, unspecified; E11.65 Type 2 diabetes mellitus with hyperglycemia; K59.00 Constipation, unspecified; E66.9 Obesity, unspecified; F41.1 Generalized anxiety disorder; F32.9 Major depressive disorder, single episode, unspecified; Z51.5 Encounter for palliative care; Z99.81 Dependence on supplemental oxygen; Z86.718 Personal history of other venous thrombosis and embolism; Z90.710 Acquired absence of both cervix and uterus; Z79.899 Other long term (current) drug therapy; Z88.8 Allergy status to other drugs, medicaments and biological substances; Z88.6 Allergy status to analgesic agent; Z87.891 Personal history of nicotine dependence; Z79.01 Long term (current) use of anticoagulants; Z68.39 Body mass index [BMI] 39.0-39.9, adult

== ENCOUNTER 2019-03-28 19:48 | Inpatient (IN) | payer OTHER, MEDICARE, MEDICAID ==
[~2019-03-28] VITALS: Ht 157.5 cm; Wt 117.0 kg
[~2019-03-28 19:48] MED LIST changes: +CEFDINIR300 MG PO; +HUMALOG100 UNIT/1 SUBQ; +KLOR-CON M1010 MEQ PO
[2019-03-28 19:52] VITALS: BP 125/58
[2019-03-28] MEDS ORDERED: LASIX 40 MG TAB40 MG PO (20:09)
[2019-03-28] MEDS ORDERED: LIPITOR 40 MG T40 M1 PO (20:09)
[2019-03-28] MEDS ORDERED: LANTUS SUBQ (20:09)
[2019-03-28 20:10] LABS: ABSOLUTE BASOPHILS 0.1 thou/uL (0.0-0.2); ABSOLUTE EOSINOPHILS 0.2 thou/uL (0.0-0.7); ABSOLUTE LYMPHOCYTES 1.2 thou/uL (0.8-5.3); ABSOLUTE MONOCYTES 1.2 thou/uL (0.0-1.2); ABSOLUTE NEUTROPHILS 6.4 thou/uL (1.6-8.1); BASOPHILS 0.6 %; EOSINOPHILS 1.8 %; HEMATOCRIT 31.5 % (37.0-47.0); HEMOGLOBIN 10.4 gm/dL (12.0-15.0); LYMPHOCYTES 13.3 %; MCH 28.9 pg (26.0-34.0); MCV 87.6 fL (80.0-100.0); MONOCYTES 12.8 %; MPV 7.9 fl. (7.2-11.1); NUCLEATED RBCS 0 /100WBC; PLATELET COUNT* 246 thou/uL (150-400); POLYS 71.5 %; RBC 3.59 mil/uL (4.20-5.00); RDW-CV 14.8 % (10.5-14.5)
[2019-03-28] MEDS ORDERED: PROBIOTIC1 EAC1 PO (20:12)
[2019-03-28] MEDS ORDERED: TRAMADOL 50 MG50 MG PO (20:14)
[2019-03-28 20:22] LABS: CREATININE 0.7 mg/dL (0.6-1.3); POTASSIUM 3.8 mmol/L (3.5-5.1)
[2019-03-28 20:25] LABS: INR 1.1; PROTIME 11.4 Seconds (9.20-11.50)
[2019-03-28 20:34] LABS: ALBUMIN 2.3 g/dL (3.4-5.0); TOTAL BILIRUBIN 0.5 mg/dL (<0.1-1.0); TOTAL PROTEIN 6.1 g/dL (6.4-8.2)
[2019-03-29] VITALS (7 sets, daily range): BP systolic 118–140; BP diastolic 54–75
--- NOTE | 2019-03-29 08:46 | EKG ---
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
[2019-03-30] VITALS (7 sets, daily range): BP systolic 117–136; BP diastolic 50–76
[2019-03-30 05:17] LABS: HEMOGLOBIN 9.9 gm/dL (12.0-15.0); MCH 28.2 pg (26.0-34.0); MCHC 31.8 g/dL (28.0-37.0); MCV 88.7 fL (80.0-100.0); MPV 7.6 fl. (7.2-11.1); RBC 3.49 mil/uL (4.20-5.00); RDW-CV 15.3 % (10.5-14.5); WBC 6.5 thou/uL (4.0-11.0)
[2019-03-30 05:41] LABS: CALCIUM 8.2 mg/dL (8.5-10.1); CREATININE 0.6 mg/dL (0.6-1.3); POTASSIUM 3.5 mmol/L (3.5-5.1); TOTAL BILIRUBIN 0.4 mg/dL (<0.1-1.0); TOTAL PROTEIN 5.6 g/dL (6.4-8.2)
[2019-03-30 10:45] LABS: URINE BILIRUBIN NEGATIVE (Negative); URINE BLOOD NEGATIVE (Negative); URINE CLARITY CLEAR; URINE COLOR YELLOW; URINE GLUCOSE-RANDOM NEGATIVE (Negative); URINE KETONES NEGATIVE (Negative); URINE LEUKOCYTES-REFLEX NEGATIVE (Negative); URINE NITRITE-REFLEX NEGATIVE (Negative); URINE PROTEIN NEGATIVE (Negative); URINE UROBILINOGEN 0.2 E.U./dl (0.2-1.0)
--- NOTE | 2019-03-30 12:01 | CON ---
[address] [address] CONSULTATION Name: ADALBREANA Nestor Room: [address] IN M.R.#: [id number] Admission: 03/28/19 Attend Phys: Terry Taylor Discharge: Date of : 45 Report #: [id number] THIS REPORT FOR: //name// CC: Terry Anderson DATE OF SERVICE: 03/29/2019 INFECTIOUS DISEASE CONSULTATION ATTENDING PHYSICIAN: Dr. Dunham. REASON FOR EVALUATION: Bilateral lower extremity inflammatory eruption, likely component of cellulitis. HISTORY OF PRESENT ILLNESS: Chart reviewed, patient examined. This is a 73-year-old woman with extensive medical history, has diabetes mellitus type 2, has COPD at baseline requires supplemental oxygen 4 liters per nasal cannula, was admitted with she describes as fairly abrupt onset of bilateral lower extremity painful red rash. Denies any antecedent injury. Has been fairly stable pulmonary-myers. Has diminished appetite. No GI-related complaints such as nausea or emesis. She has had moderate amount of pain and discomfort at this point. ALLERGIES: LISTED TO LATOSHA INHIBITORS, ARB, ASPIRIN. CURRENT MEDICATIONS: Include insulin glargine, atorvastatin, gabapentin, montelukast, enoxaparin, vancomycin, arformoterol, lactobacillus, furosemide, ipratropium and albuterol inhaler, duloxetine, guaifenesin, budesonide, bumetanide, famotidine, levothyroxine, p.r.n. alprazolam, hydrocodone. She is on metformin, piperacillin and tazobactam. PAST MEDICAL HISTORY: As noted above, diabetes mellitus type 2, O2 requiring COPD, hypertension, history of DVTs, degenerative joint disease, chronic back pain, high cholesterol, peripheral neuropathy, previous hysterectomy, left total knee replacement, does have anxiety as well. SOCIAL HISTORY: Former smoker. No ethanol. No illicit drug use. FAMILY HISTORY: Noncontributory. REVIEW OF SYSTEMS: Otherwise, unremarkable 10-point review of system with exception of the above. PHYSICAL EXAMINATION: GENERAL: She is in moderate distress. She does make eye contact, [place] [address] CONSULTATION Name: BREANA GALEAS Room: [address]#: [id number] Admission: 03/28/19 Attend Phys: Terry Taylor Discharge: Date of : 45 Report #: [id number] somewhat chronically ill. VITAL SIGNS: Temperature max 99.1, more recently 98.3. Pulse 97, respirations 18, blood pressure 129/68. SKIN: Warm, dry. HEENT: Normocephalic. Extraocular muscles intact. NECK: Supple. LUNGS: Diminished breath sounds. Few scattered rales at the bases. HEART: Regular, occasional ectopy. I do not appreciate murmur. ABDOMEN: Obese, soft. No apparent peritoneal signs. EXTREMITIES: Bilateral lower extremities have erythrodermic-type eruption, is quite tender to palpation. This is limited to below the knees. There is some moderate degree of edema. There are no bullous lesions or ulcerations. At this point, there are palpable peripheral pulses. GENITOURINARY AND RECTAL: Deferred. LABORATORY DATA: Initial CBC: White count of 9.0, H and H 10.4 and 31.5, platelets of 246,000. Lactic acid 1.1. Troponin less than 0.06. Electrolytes: Sodium 139, potassium 3.8, chloride 100, bicarbonate is 36, anion gap of 3, BUN and creatinine 13 and 0.7, glucose of 140, albumin of 2.3, total protein of 6.1. Estimated GFR of 82. LFTs unremarkable. Chest x-ray, no focal consolidations, some reticular markings, perihilar bronchial wall thickening suggestive of fibrotic change. Blood cultures are sterile thus far. ASSESSMENT AND PLAN: Bilateral lower extremity inflammatory eruption, certainly has appearance of cellulitis, especially on the left side, although it is unusual to have bilateral symmetrical soft tissue infections. I suspect a component of venous stasis insufficiency, dermatitis, but she described abrupt onset became quite painful. We will continue empiric antimicrobial therapy, vancomycin and Zosyn for now. We will elevate the limbs. We will introduce incentive spirometry as well given her quite minimal reserve. She is certainly at risk for nosocomial-related infectious complications. At some point, I would like to add compression to her lower extremities as well. We will monitor expectantly. <ELECTRONICALLY SIGNED> By: Reynaldo Carlton MD 03/30/19 1201 0923 1023Reynaldo Carlton MD /terry
[2019-03-31] VITALS: BP 115/53
[2019-03-31 04:00] VITALS: BP 113/53
[2019-03-31 08:00] VITALS: BP 110/52
[2019-03-31 13:34] VITALS: BP 133/57
[2019-03-31 16:02] VITALS: BP 151/65
[2019-03-31 20:00] VITALS: BP 136/67
[2019-04-01] VITALS: BP 123/69
[2019-04-01 04:40] LABS: HEMATOCRIT 31.2 % (37.0-47.0); HEMOGLOBIN 9.9 gm/dL (12.0-15.0); MCH 28.2 pg (26.0-34.0); MCHC 31.8 g/dL (28.0-37.0); MCV 88.7 fL (80.0-100.0); MPV 7.4 fl. (7.2-11.1); RBC 3.52 mil/uL (4.20-5.00); WBC 6.3 thou/uL (4.0-11.0)
[2019-04-01 05:14] LABS: CALCIUM 8.4 mg/dL (8.5-10.1); CREATININE 0.7 mg/dL (0.6-1.3); MAGNESIUM 1.9 mg/dL (1.8-2.4); POTASSIUM 3.5 mmol/L (3.5-5.1)
[2019-04-01 08:00] VITALS: BP 150/71
[2019-04-01 08:30] VITALS: BP 150/71
[2019-04-01 15:44] VITALS: BP 146/69
[2019-04-02] VITALS: BP 129/64
[2019-04-02 07:20] VITALS: BP 119/49
[2019-04-02 16:00] VITALS: BP 132/64
[2019-04-03] VITALS: BP 153/78
[2019-04-03 04:23] LABS: HEMATOCRIT 30.7 % (37.0-47.0); MCH 28.7 pg (26.0-34.0); MCHC 32.7 g/dL (28.0-37.0); MCV 87.8 fL (80.0-100.0); RBC 3.5 mil/uL (4.20-5.00); RDW-CV 14.7 % (10.5-14.5); WBC 7.2 thou/uL (4.0-11.0)
[2019-04-03 04:45] LABS: CALCIUM 9.1 mg/dL (8.5-10.1); CREATININE 0.6 mg/dL (0.6-1.3); POTASSIUM 3.4 mmol/L (3.5-5.1)
[2019-04-03 07:15] VITALS: BP 153/66
[2019-04-03 17:05] VITALS: BP 133/66
[2019-04-04 08:55] VITALS: BP 126/64
[2019-04-04 15:34] VITALS: BP 144/72
[2019-04-04 20:00] VITALS: BP 161/79
[2019-04-05 04:24] LABS: HEMATOCRIT 32.6 % (37.0-47.0); HEMOGLOBIN 10.7 gm/dL (12.0-15.0); MCH 28.9 pg (26.0-34.0); MCHC 32.7 g/dL (28.0-37.0); MCV 88.2 fL (80.0-100.0); MPV 6.8 fl. (7.2-11.1); RBC 3.69 mil/uL (4.20-5.00); RDW-CV 15.3 % (10.5-14.5); WBC 7.8 thou/uL (4.0-11.0)
[2019-04-05 05:15] LABS: CALCIUM 8.8 mg/dL (8.5-10.1); CREATININE 0.8 mg/dL (0.6-1.3); POTASSIUM 3.9 mmol/L (3.5-5.1)
[2019-04-05 07:47] VITALS: BP 130/69
[2019-04-05 16:00] VITALS: BP 144/74
[2019-04-05 20:10] VITALS: BP 141/72
[2019-04-06 08:00] VITALS: BP 126/59
[2019-04-06] MEDS ORDERED: NORCO 7.5-3251 EACH PO (08:52)
[2019-04-06] MEDS ORDERED: ALPRAZOLAM0.5 M2 PO (08:52)
[2019-04-06] MEDS ORDERED: TRAMADOL 50 MG50 MG PO (08:52)
[2019-04-06] MEDS ORDERED: LINEZOLID600 MG PO (08:52)
[2019-04-06] MEDS ORDERED: LIDOPATCH1 EACH TOP (08:52)
[2019-04-06] MEDS ORDERED: CYMBALTA30 MG PO (08:53)
[2019-04-06 10:31] VITALS: BP 126/59
== END 2019-04-06 11:33 | DRG 603 ==
LOC: M.ERS 19:48 → M.2W 22:43 → M.TBA-ER 22:43 → M.2W 03-29 00:04 → M.3W 04-01 14:46
PROVIDERS: Emergency Medicine; Internal Medicine; ADMIT Family Medicine
DX: L03.116 Cellulitis of left lower limb (principal); E44.0 Moderate protein-calorie malnutrition; R65.10 Systemic inflammatory response syndrome (SIRS) of non-infectious origin without acute organ dysfunction; J96.11 Chronic respiratory failure with hypoxia; Z68.42 Body mass index [BMI] 45.0-49.9, adult; E11.51 Type 2 diabetes mellitus with diabetic peripheral angiopathy without gangrene; L03.115 Cellulitis of right lower limb; I10 Essential (primary) hypertension; J44.9 Chronic obstructive pulmonary disease, unspecified; Z96.651 Presence of right artificial knee joint; M19.90 Unspecified osteoarthritis, unspecified site; G89.29 Other chronic pain; M54.9 Dorsalgia, unspecified; E78.00 Pure hypercholesterolemia, unspecified; E11.40 Type 2 diabetes mellitus with diabetic neuropathy, unspecified; J06.9 Acute upper respiratory infection, unspecified; E78.5 Hyperlipidemia, unspecified; D64.9 Anemia, unspecified; I71.4 Abdominal aortic aneurysm, without rupture; F32.9 Major depressive disorder, single episode, unspecified; E66.01 Morbid (severe) obesity due to excess calories; I87.8 Other specified disorders of veins; F41.1 Generalized anxiety disorder; Z86.718 Personal history of other venous thrombosis and embolism; Z90.710 Acquired absence of both cervix and uterus; Z79.899 Other long term (current) drug therapy; Z79.4 Long term (current) use of insulin; Z88.6 Allergy status to analgesic agent; Z88.8 Allergy status to other drugs, medicaments and biological substances; Z87.891 Personal history of nicotine dependence; Z83.6 Family history of other diseases of the respiratory system

== ENCOUNTER 2019-04-08 02:23 | Inpatient (IN) | payer OTHER, MEDICARE, MEDICAID ==
[2019-04-08] VITALS (23 sets, daily range): BP systolic 92–147; BP diastolic 58–112
[~2019-04-08] VITALS: Ht 157.5 cm; Wt 109.8 kg
[~2019-04-08 02:23] MED LIST changes: +LANTUS SUBQ; +LASIX 40 MG TAB40 MG PO; +LIDOPATCH1 EACH TOP; +LINEZOLID600 MG PO; +LIPITOR 40 MG T40 M1 PO; +PROBIOTIC1 EAC1 PO; +TRAMADOL 50 MG50 MG PO
[2019-04-08] MEDS ORDERED: PEPCID20 MG PO (02:39)
[2019-04-08] MEDS ORDERED: SINGULAIR 10 MG10 M1 PO (02:40)
[2019-04-08] MEDS ORDERED: MASOPHEN325 MG PO (02:41)
[2019-04-08 02:49] LABS: ABSOLUTE BASOPHILS 0.1 thou/uL (0.0-0.2); ABSOLUTE EOSINOPHILS 0.2 thou/uL (0.0-0.7); ABSOLUTE LYMPHOCYTES 1.7 thou/uL (0.8-5.3); ABSOLUTE NEUTROPHILS 6.1 thou/uL (1.6-8.1); EOSINOPHILS 2.3 %; HEMOGLOBIN 11.1 gm/dL (12.0-15.0); LYMPHOCYTES 19.1 %; MCH 28.5 pg (26.0-34.0); MCHC 32.6 g/dL (28.0-37.0); MCV 87.6 fL (80.0-100.0); MONOCYTES 10.7 %; MPV 6.7 fl. (7.2-11.1); NUCLEATED RBCS 0 /100WBC; PLATELET COUNT* 553 thou/uL (150-400); POLYS 66.9 %; RBC 3.88 mil/uL (4.20-5.00); RDW-CV 14.9 % (10.5-14.5); WBC 9.1 thou/uL (4.0-11.0)
[2019-04-08 03:08] LABS: PROTIME 10.1 Seconds (9.20-11.50)
[2019-04-08 03:16] LABS: ALBUMIN 2.6 g/dL (3.4-5.0); CALCIUM 8.7 mg/dL (8.5-10.1); CREATININE 0.9 mg/dL (0.6-1.3); POTASSIUM 3.3 mmol/L (3.5-5.1); TOTAL BILIRUBIN 0.3 mg/dL (<0.1-1.0); TOTAL PROTEIN 6.6 g/dL (6.4-8.2)
[2019-04-08 03:37] LABS: BE 6.7 mmol/L (-2 to +3); pH 7.392 (7.340-7.450)
[2019-04-08 03:38] LABS: PCO2 55.6 mmHg (35.0-45.0); PO2 145.8 mmHg (75.0-100.0)
--- NOTE | 2019-04-08 06:44 | NUR ---
UPDATED DUANE PADILLA AT [facility] AND HER SISTER BELLO.
--- NOTE | 2019-04-08 10:55 | NUR ---
cm completed initial assessment to discuss d/c planning. pt sister, Dana, present at time of assessment. pt was wearing bipap and nurse was administering meds so pt sister spk on her behalf. pt sister states the plan is for pt to rtrn to [facility] for rehab. pt sister states pt currently lives w/dtr, but she is thinking about moving pt to her home once she is d/c from [facility]. cm contacted [facility], who confirmed [facility] is willing to accept pt back at the facility. Angela stated if pt isnt d/c today, pt will not be accepted back until Thursday, b/c insur auth will be required, cm to cont to follow.
--- NOTE | 2019-04-08 12:07 | NUR ---
RECEIVED PT FROM ER AT 0830. GET SITUATED TO ROOM. TELE IN PLACED TRACING SINUS TACH. PT AOX4, HAVING ANXIETY, STATE SHE CANT BREATHE. PT ON 4L NC. PT UP WITH ASSIST. USES BEDPAN. ADMISSION CHARTED. PULMONOLOGY AND CARDIOLOGY CONSULTED. BP IS HIGH, HR IS HIGH. TRANSFER TO ICU AT 1200.
[2019-04-08 12:27] LABS: BE -2.1 mmol/L (-2 to +3); PO2 88.9 mmHg (75.0-100.0)
[2019-04-08 12:31] LABS: pH 7.256 (7.340-7.450)
[2019-04-08 12:32] LABS: PCO2 59.8 mmHg (35.0-45.0)
[2019-04-08 14:27] LABS: URINE BILIRUBIN NEGATIVE (Negative); URINE BLOOD TRACE (Negative); URINE CLARITY CLEAR; URINE COLOR YELLOW; URINE GLUCOSE-RANDOM TRACE (Negative); URINE KETONES NEGATIVE (Negative); URINE LEUKOCYTES-REFLEX NEGATIVE (Negative); URINE NITRITE-REFLEX NEGATIVE (Negative); URINE PROTEIN NEGATIVE (Negative); URINE UROBILINOGEN 0.2 E.U./dl (0.2-1.0)
--- NOTE | 2019-04-08 14:36 | EKG ---
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[place] : 1945 Requested By: Sana Jenkins Order Number: [id number] MD: Richar Mora Measurements Intervals [place] Rate: 130 P: 47 [place]: 130 QRS: -4 QRSD: 73 T: 71 QT: 303 QTc: 446 Interpretive Statements Sinus tachycardia Low voltage, extremity and precordial leads Compared to ECG 03/28/2019 20:18:50 Low QRS voltage now present Atrial premature complex(es) no longer present Electronically Signed On 04-08-2019 14:36:29 CDT by Richar Mora [email or web address] <ELECTRONICALLY SIGNED> By: Richar Mora MD, [facility] 04/08/19 1436 6 Richar Mora MD, [facility] /EPI
--- NOTE | 2019-04-08 16:07 | 2DMMODE ---
[place] [address] 2 D/M-MODE ECHOCARDIOGRAM Name: BREANA GALEAS Room: [address] IN [facility]#: [id number] Admission: 04/08/19 Attend Phys: Shine Hunter, Discharge: Date of : 45 Date of Service: 04/08/19 1607 Report #: [id number] THIS REPORT FOR: //name// APPROVED REPORT Study performed: 04/08/2019 14:42:53 EXAM: Comprehensive 2D, Doppler, and color-flow Echocardiogram Patient Location: In-Patient Room #: 006 Status: routine BSA: 2.07 HR: 108 bpm BP: 142/89 mmHg Rhythm: NSR Other Information Study Quality: Good Indications Congestive Heart Failure 2D Dimensions IVSd: 8.28 (7-11mm) LVOT Diam: 19.42 (18-24mm) LVDd: 46.88 mm PWd: 8.58 (7-11mm) Ascending Ao: 32.23 (22-36mm) LVDs: 38.54 (25-40mm) Aortic Root: 35.68 mm Volumes Left Atrial Volume (Systole) LA ESV Index: 28.30 mL/m2 Aortic Valve AoV Peak David.: 0.92 m/s AO Peak Gr.: 3.36 mmHg LVOT Max P.70 mmHg AO Mean Gr.: 2.00 mmHg LVOT Mean P.30 mmHg LVOT Max V: 0.82 m/s AO V2 VTI: 15.18 cm LVOT Mean V: 0.52 m/s RADHA (VTI): 2.82 cm2 LVOT V1 VTI: 14.46 cm Mitral Valve E/A Ratio: 1.08 MV Decel. Time: 178.19 ms MV E Max David.: 0.98 m/[place] [address] 2 D/M-MODE ECHOCARDIOGRAM Name: BREANA GALEAS Nestor Room: [address] IN .R.#: [id number] Admission: 04/08/19 Attend Phys: Shine Hunter, Discharge: Date of : 45 Date of Service: 04/08/19 1607 Report #: [id number] MV PHT: 51.67 ms MVA (PHT): 4.26 cm2 TDI E/Medial E': 12.25 Medial E' David.: 0.08 m/s Pulmonary Valve PV Peak David.: 0.90 m/s PV Peak Gr.: 3.21 mmHg Tricuspid Valve RAP Estimate: 5.00 mmHg TR Peak Gr.: 27.36 mmHg RVSP: 32.00 mmHg PA Pressure: 32.00 mmHg Left Ventricle The left ventricle is normal size. Regional wall motion abnormalities are noted with distal septal and anteroapical hypo-akinesis. There is normal left ventricular wall thickness. Left ventricular systolic function is moderately decreased. LVEF is 35-40%. Grade I - abnormal relaxation pattern. Right Ventricle The right ventricle is normal size. The right ventricular systolic function is normal. Atria The left atrium size is normal. The right atrium size is normal. Aortic Valve The aortic valve is normal in structure. No aortic regurgitation is present. There is no aortic valvular stenosis. Mitral Valve The mitral valve is normal in structure. Trace mitral regurgitation. No evidence of mitral valve stenosis. Tricuspid Valve The tricuspid valve is normal in structure. Trace tricuspid regurgitation. Mild pulmonary hypertension. Pulmonic Valve The pulmonary valve is normal in structure. There is no pulmonic valvular [place] [address] 2 D/M-MODE ECHOCARDIOGRAM Name: BREANA GALEAS Room: [address]#: [id number] Admission: 04/08/19 Attend Phys: Shine Hunter, Discharge: Date of : 45 Date of Service: 04/08/19 1607 Report #: [id number] Great Vessels The aortic root is normal in size. IVC is normal in size and collapses >50% with inspiration. Pericardium There is no pericardial effusion. <Conclusion> The left ventricle is normal size. There is normal left ventricular wall thickness. Left ventricular systolic function is moderately decreased. LVEF is 35-40%. Grade I - abnormal relaxation pattern. The right ventricle is normal size. The left atrium size is normal. The aortic valve is normal in structure. The mitral valve is normal in structure. The tricuspid valve is normal in structure. IVC is normal in size and collapses >50% with inspiration. There is no pericardial effusion. Regional wall motion abnormalities are noted with distal septal and anteroapical hypo-akinesis. <ELECTRONICALLY SIGNED> By: Richar Mora MD, FACC 04/08/19 1607 1607 160 Richar Mora MD, FACC /INF
--- NOTE | 2019-04-08 17:51 | NUR ---
PT RECEIVED FROM [facility] AT 1145, PT TACHYCARDIAC AND TACHYPNEIC, MORPHINE 3MG IV GIVEN. PT IN BIPAP, SETTINGS CHANGED TO AVAPS MODE, FIO2 35%. LASIX 40 MG IV PER PULMONOLOGY. BOOTH'S CATHETER PLACED. PRECEDEX DRIP PER PROTOCOL FOR AGITATION, CURRENTLY OFF. VSS. ATE 10-20% OF HER DINNER. A&O X4. FAMILY AT THE BEDSIDE. PROGRESSING TOWARDS GOAL.
[2019-04-09] VITALS (35 sets, daily range): BP systolic 84–129; BP diastolic 40–80
[2019-04-09 05:08] LABS: HEMATOCRIT 32.3 % (37.0-47.0); HEMOGLOBIN 10.6 gm/dL (12.0-15.0); MCH 28.6 pg (26.0-34.0); MCHC 32.8 g/dL (28.0-37.0); MCV 87.2 fL (80.0-100.0); MPV 6.9 fl. (7.2-11.1); RBC 3.7 mil/uL (4.20-5.00); RDW-CV 15.2 % (10.5-14.5); WBC 9.1 thou/uL (4.0-11.0)
[2019-04-09 05:34] LABS: ALBUMIN 2.5 g/dL (3.4-5.0); CALCIUM 8.4 mg/dL (8.5-10.1); CREATININE 0.8 mg/dL (0.6-1.3); MAGNESIUM 2.1 mg/dL (1.8-2.4); TOTAL BILIRUBIN 0.3 mg/dL (<0.1-1.0); TOTAL PROTEIN 6.4 g/dL (6.4-8.2); TROPONIN-I LEVEL 0.42 ng/mL (<0.06)
--- NOTE | 2019-04-09 07:19 | CON ---
[address] [address] CONSULTATION Name: BREANA GALEAS Room: [address] IN M.R.#: [id number] Admission: 04/08/19 Attend Phys: Shine Hunter MD Discharge: Date of : 45 Report #: [id number] THIS REPORT FOR: //name// CC: Shine Landaverde REASON FOR EVALUATION: Acute hypercapnic and hypoxemic respiratory failure, known to have COPD. HISTORY OF PRESENT ILLNESS: The patient was seen today on 04/08/2019. She was recently hospitalized for cellulitis and has had treatment with antibiotics, which included linezolid, was evaluated for peripheral vascular disease. She was transferred to rehab; however, she was brought back with respiratory distress, was requiring increasing amount of oxygen 3-4 liters, subsequently admitted to the floor with hypoxemia. She was started on BiPAP as she was saturating 90% on 4 liters with shortness of breath and respiratory distress. At this time, the patient is on BiPAP 18/6, in some respiratory distress; however, improved since she is on BiPAP. Her arterial blood gas, which I reviewed, pH 7.3, pCO2 of 55, pO2 of 145 and this is on BiPAP 12/6, 40%. We are not able to obtain further history, the patient is on BiPAP, in some distress. Her blood work here, white blood cell count 9.1, hemoglobin 11.1, platelet is 553. A chest x-ray which I have reviewed, showed increased interstitial marking and CT of the chest showed increased interstitial marking, however, no PE, emphysematous changes. PAST MEDICAL HISTORY: Includes cellulitis, previous history of COPD, recent admission of lower extremity swelling and edema, diabetes, hypertension, left total knee replacement, DVT x 2, chronic back pain, hyperlipidemia. ALLERGIES: INCLUDE ARB, LATOSHA INHIBITORS, ASPIRIN. PAST SURGICAL HISTORY: Hysterectomy, left knee fracture requiring surgical repair, neuropathy. MEDICATIONS: Reviewed as in the chart. SOCIAL HISTORY: Previous history of smoking of unknown amount. FAMILY HISTORY: No documented family history of COPD. REVIEW OF SYSTEMS: A 12-point review of system noted in the chart. The patient is not able to provide further history. Has history of lower extremity swelling, edema and redness. No history of fever or chills. History of shortness of breath, history of cough. PHYSICAL EXAMINATION: GENERAL: The patient is pleasant. [place] [address] CONSULTATION Name: BREANA GALEAS Room: [address]#: [id number] Admission: 04/08/19 Attend Phys: Shine Hunter MD Discharge: Date of : 45 Report #: [id number] VITAL SIGNS: Respiratory rate in 30s. She is on BiPAP 18/6. HEAD AND NECK: Supple. Oral mucosa clear. CHEST: Equal breath sounds, diffusely decreased breath sounds. ABDOMEN: Obese. EXTREMITIES: Diffuse +4 edema with some redness; however, no discharge. PSYCHIATRIC: Alert, oriented, anxious. NEUROLOGIC: Moving 4 extremities. SKIN: As above. Redness in the lower extremities. LABORATORY DATABASE: Echocardiogram. Previous echo showed normal ejection fraction. White blood cell count 9000. Arterial blood gas as above. Chest x-ray and CT as above. ASSESSMENT AND PLAN: Acute on chronic hypercapnic respiratory failure. The patient's pH is compensated. Suspect element of hypercapnia related to chronic obstructive pulmonary disease, cannot exclude sleep apnea and obesity hypoventilation. At this time, agree with BiPAP. A volume fluid overload, suspect heart failure with preserved ejection fraction. She was given one dose of Lasix. I ordered to give another dose of Lasix. Agree with empiric treatment for chronic obstructive pulmonary disease exacerbation with steroids, bronchodilator treatment. Volume overload, treatment as above. Obtain chest x-ray in the morning as well as arterial blood gas. Critical care time taking care of the patient was 32 minutes. Thank you for the consultation. <ELECTRONICALLY SIGNED> By: Breana Dickson MD 04/09/19 0719 1229 [id number] La Duke MD /nt
--- NOTE | 2019-04-09 07:51 | NUR ---
Pt c/o back pain, rates 9/10. Repositioned, but states little to no relief. Medicated with hydrocodone/APAP twice overnight. Pt asleep with pain reassessments. Pt also inquired how long she will have to wear mask; states she doesn't like wearing it. According to pt's sister (Dana) and granddaughters (Christina & Kiera), pt [facility] CP[facility] but pt does not like to wear it. Pt denied having home CPAP when asked about overnight. SBP 90s to low-100s. Held MN dose of metoprolol but 0600 dose given. Late in shift SBP mid-80s. Pt asymptomatic. Will continue to monitor.
[2019-04-09 08:45] LABS: BE 8.6 mmol/L (-2 to +3); PCO2 47.8 mmHg (35.0-45.0); PO2 112.1 mmHg (75.0-100.0); pH 7.464 (7.340-7.450)
--- NOTE | 2019-04-09 10:04 | NUR ---
7702 ASSUMED CARE OF PATIENT. PLEASE SEE DOCUMENTED ASSESSMENT. PT IS ON AVAPS. PT C/O CHRONIC BACK PAIN. FREQUENT PAC'S
--- NOTE | 2019-04-09 10:13 | NUR ---
[address] WILKERSON. PATIENT MAY STAY OFF OF BIPAP DURING THE DAY.
--- NOTE | 2019-04-09 15:06 | NUR ---
1430 PLACED ON AVAPS DURING ULTRASOUND PATIENT IS SUPINE AND SATS DROPPED TO 85%
--- NOTE | 2019-04-09 18:11 | NUR ---
PATIENT MAKING SOME PROGRESS TOWARDS GOALS. HAS BEEN OFF OF THE AVAPS MOST OF THE DAY. RESPONDED TO DIURESIS. ULTRASOUND STUDIES COMPLETED AND ANTICOAGULATION STARTED. PT CONTINUES TO C/O CHRONIC BACK PAIN BUT HAS SLEPT MOST OF SHIFT WHEN NOT HAVING CARES OR VISITORS. PT DOES NOT WANT THE BIPAP ON AGAIN TONIGHT. STATES SHE [facility] WALK [facility] BUT DOESN'T DO MUCH.
[2019-04-10] VITALS (23 sets, daily range): BP systolic 89–119; BP diastolic 34–69
[2019-04-10 04:28] LABS: HEMATOCRIT 32.4 % (37.0-47.0); HEMOGLOBIN 10.4 gm/dL (12.0-15.0); MCHC 32.2 g/dL (28.0-37.0); MPV 6.9 fl. (7.2-11.1); RBC 3.72 mil/uL (4.20-5.00); RDW-CV 15.1 % (10.5-14.5); WBC 10.3 thou/uL (4.0-11.0)
[2019-04-10 04:39] LABS: ALBUMIN 2.5 g/dL (3.4-5.0); CALCIUM 8.1 mg/dL (8.5-10.1); CREATININE 0.8 mg/dL (0.6-1.3); MAGNESIUM 2.1 mg/dL (1.8-2.4); POTASSIUM 3.6 mmol/L (3.5-5.1); TOTAL BILIRUBIN 0.3 mg/dL (<0.1-1.0); TOTAL PROTEIN 6.1 g/dL (6.4-8.2)
--- NOTE | 2019-04-10 05:52 | NUR ---
Pt states she does not want to wear mask (BIPAP) last evening shortly after change of shift. Pt had been anxious and experiencing SOA. Explained to pt that BIPAP is necessary for preservation of lung function as well as recovery when SOA. Pt on Trilogy at home/rehab facility but per family and pt she refuses to wear it. Pt asked multiple times "how long do I have to wear this mask?" Educated pt on importance of BIPAP and other ordered treatments and therapies, but also that she has a chooice as to whether to agree to these treatments or pursue other alternatives including a less aggressive approach if she desires. Pt states she does not want less aggressive approach at this time and is in agreement to current treatment plan. Pt wore BIPAP from 2200 to 0500, and asked to keep BIPAP off for the day though understands she needs to wear it overnight. VSS though BP soft overnight. Metoprolol doses held overnight. Good output via dawson overnight following evening dose of furosemide. Will continue to monitor.
[2019-04-10 06:09] LABS: HEPATITIS B SURFACE AG Negative (Negative)
--- NOTE | 2019-04-10 10:09 | NUR ---
6730 ASSUMED CARE OF PATIENT. PLEASE SEE DOCUMENTED ASSESSMENT. PT IS ON 3LPM NASAL CANNULA.
--- NOTE | 2019-04-10 17:20 | NUR ---
PATIENT PROGRESSING TOWARDS GOALS. HAS REMAINED OFF OF AVAPS ALL DAY. MEDICATED FOR BACK PAIN X 1. DIURESED AFTER LASIX. APPETITE IMPROVING. SEEN BY CONSULTS. FAMILY HAS VISITED.
--- NOTE | 2019-04-10 17:43 | NUR ---
PT C/O SOA AFTER TALKING ON TELEPHONE. PLACED ON AVAPS PER HER REQUEST.
[2019-04-11] VITALS: BP 114/69
[2019-04-11 04:00] VITALS: BP 105/68
--- NOTE | 2019-04-11 04:27 | NUR ---
PT TRANSFERED FROM ICU TO 218. O2 AT 4 LITERS NC. BIPAP ON AT HS. PT REQUESTING BIPAP OFF FOR A DRINK 15MIN AFTER PLACE PT ON. PT TEACHING RE BIPAP AND RECOVERY TIME WHEN OFF. XANAX, MELATONIN AND BENADRYL GIVEN. PT DID FAIRLY WELL AFTER THAT. COMING OFF Q 2HRS FOR A DRINK. TELEMETRY SHOWS SR. HYDROCODONE GIVEN FOR CHRONIC BACK PAIN. TURNING Q 2 HRS. BOOTH WITH CLEAR YELLOW.
[2019-04-11 05:00] LABS: ALBUMIN 2.6 g/dL (3.4-5.0); CALCIUM 8.2 mg/dL (8.5-10.1); CREATININE 0.9 mg/dL (0.6-1.3); MAGNESIUM 2.1 mg/dL (1.8-2.4); POTASSIUM 3.9 mmol/L (3.5-5.1); TOTAL BILIRUBIN 0.3 mg/dL (<0.1-1.0); TOTAL PROTEIN 6.3 g/dL (6.4-8.2)
[2019-04-11 08:23] VITALS: BP 105/52
--- NOTE | 2019-04-11 11:11 | NUR ---
ASSUMED CARE OF PT THIS AM AROUND 0715- SUPERVISORY CIVIL ENGINEER IN PLACE ORDERED, TRACING SR WITH PAC- UPON ASSESSMENT PT NOTED TO BE RESTING IN BED- PT A&O X4- CONTINENT OF BOWEL, BOOTH IN PLACE D/D CLEAR YELLOW URINE- ASSIST X1 WITH TRANSFERS- WORKING WITH THERAPIES ORDERED, UP TO BED SIDE CHAIR THIS AM, TOLERATING WELL- DIMINISHED LUNG SOUNDS NOTED, DYSPNEA NOTED ON EXERTION- VSS, O2 SAT 96% ON 4L VIA NC- ABD SOFT/ROUND/NON-TENDER, BS X4 QUADS- LAST BM REPORTED 04/09/19- 2-3+ BLE EDEMA NOTED WITH CELLULITIS- IV NOTED TO RIGHT HAND AND RIGHT FA INTACT, IV ABT INFUSSING THIS AM PRESCIBED- GOOD PO INTAKE NOTED THIS AM WITH BREAKFAST, BS MONITORED WITH INSULIN GIVEN PRESCIBED- PT RATES PAIN 7/10 TO BACK THIS AM, PRN HYDROCODONE GIVEN AT 1049 THIS AM- CALL LIGHT AND PERSONAL BELONGINGS WITH IN REACH- HOURLY ROUNDS IN PLACE R/T SAFETY/NEEDS- ALL NEEDS MET AT THIS TIME-WCTM
[2019-04-11 12:10] VITALS: BP 123/62
--- NOTE | 2019-04-11 13:51 | NUR ---
Nutrition: Pt seen for high BMI. BG is high 318. Alb 2.6, prealb 20. Pt is on steroids, janumet, insulin. She stated she has had multiple DM educ classes in past. She did not want to discuss nutrition or DM today. She is on CHO controlled diet. Admitted with COPD exac, atelectasis. Physiscian indicated severe PCM - defer. She was eating lunch during our visit, good appetite. H/o DM, COPD, HTN. No other nutrition interventions needed at this time. Mild risk. GOALS: tight BG control, wt loss over time.
[2019-04-11 17:00] VITALS: BP 124/67
[2019-04-11 20:00] VITALS: BP 113/55
--- NOTE | 2019-04-11 20:00 | NUR ---
RECEIVED REPORT AND ASSUMED CARE OF PT, ASSESSMENT COMPLETED. ELLIOTT LOWER LEGS WITH ELEPHANESIS, 3+ EDEMA AND DISCOLORED. O2 ON AT 3.5L/NC, HOB ELEVATED, NO SOA NOTED. OCC MOIST NON-PROD COUGH. TELEMETRY ON SHOWING SR WITH OCC PAC. ASKING FOR PAIN MED FOR ABD PAIN BUT TOO SOON YET. WILL CONT TO MONITOR AND ASSIST NEEDED.
[2019-04-12] VITALS: BP 123/60
[2019-04-12 05:00] VITALS: BP 114/63
[2019-04-12 05:44] LABS: HEMOGLOBIN 11.1 gm/dL (12.0-15.0); MCH 28.4 pg (26.0-34.0); MCHC 32.8 g/dL (28.0-37.0); MCV 86.6 fL (80.0-100.0); MPV 6.6 fl. (7.2-11.1); RBC 3.93 mil/uL (4.20-5.00); RDW-CV 14.7 % (10.5-14.5); WBC 8.2 thou/uL (4.0-11.0)
[2019-04-12 05:51] LABS: CALCIUM 8.2 mg/dL (8.5-10.1); CREATININE 0.9 mg/dL (0.6-1.3); MAGNESIUM 2.2 mg/dL (1.8-2.4); POTASSIUM 3.5 mmol/L (3.5-5.1)
--- NOTE | 2019-04-12 06:44 | NUR ---
AWAKE OCC DURING NIGHT. UNABLE TO TOLERATE BIPAP, CHANGED BACK TO O2 AT 3.5 L/NC. REPOSITIONED Q 2HR. DIIURESED WELL WITH LASIX PER EMMY. TELEMETRY CONT TO SHOW SR. NO CHANGE IN ASSESSMENT. HS GOALS OF REST AND SAFETY ACHIEVED. HOURLY ROUNDING OBSERVED.
--- NOTE | 2019-04-12 06:53 | CON ---
[address] [address] CONSULTATION Name: ADALBREANA Nestor Room: [address] IN M.R.#: [id number] Admission: 04/08/19 Attend Phys: Shine Hunter MD Discharge: Date of : 45 Report #: [id number] THIS REPORT FOR: //name// CC: Shine Landaverde DATE OF SERVICE: 04/10/2019 HISTORY OF PRESENT ILLNESS: This is a pleasant 73-year-old female with past medical history significant for hypertension, hyperlipidemia, coronary artery disease, CHF, COPD on 4 liters oxygen at baseline. The patient is a resident of [facility] and was brought in when she was found to be in respiratory distress and her reported oxygen saturation was in the 50s. The GI service has been consulted for evaluation of her elevated liver enzymes. On presentation, the patient's liver enzymes on 04/08/2019 were normal. AST was 26, ALT was 41, alkaline phosphatase was 104. This subsequently increased to 321, 358 and 157 respectively. The patient's bilirubin has been normal. The patient is currently lethargic and unable to provide significant history. Upon chart review, there does not appear to be any significant history of known liver disease. This was also discussed with the patient's DPOA, who is at her bedside. PAST MEDICAL HISTORY: Hypertension, COPD, CHF, hyperlipidemia, diabetes, DVT x 2. PAST SURGICAL HISTORY: The patient had a hysterectomy, left ankle fracture requiring surgical repair, left knee total replacement. SOCIAL HISTORY: Prior history of smoking, no significant alcohol or recreational drug use. FAMILY HISTORY: Reviewed and nonsignificant. REVIEW OF SYSTEMS: Unable to obtain because of the patient's mental status. PHYSICAL EXAMINATION: VITAL SIGNS: Blood pressure 109/56. The patient is on nasal cannula and BiPAP at night 3 liters. Review of vital signs indicates that the patient's blood pressure following her presentation on 04/08 was as low as 84/46 on 04/09/2019. GENERAL: The patient opens her eyes to voice, does not respond in a meaningful way. HEENT: Pupils are equal, round. There is no scleral icterus. No spider angiomata. LUNGS: Show bilateral expiratory wheezing and some baseline crackles. CARDIOVASCULAR: Rate and rhythm regular, S1, S2 present. ABDOMEN: Soft. There is no distention, [place] [address] CONSULTATION Name: BREANA GALEAS Room: [address] IN [facility]#: [id number] Admission: 04/08/19 Attend Phys: Shine Hunter MD Discharge: Date of : 45 Report #: [id number] sign. There is 3+ pitting edema bilaterally. LABORATORY DATA: Hemoglobin 10.4, hematocrit 32.4, platelet count 441, WBC count 10.4. Sodium 140, potassium 3.6, chloride 99, bicarbonate 34, BUN 24, creatinine 0.8, total bilirubin 0.3, AST today is down to 197 from a high of 321 yesterday. ALT is 364 from 358 yesterday and alkaline phosphatase is down to 137 from 157 yesterday. Abdominal ultrasound performed today demonstrates cholelithiasis with positive sonographic Bear sign, 3.5 cm distal abdominal aortic aneurysm. ASSESSMENT AND PLAN: A pleasant 73-year-old female with history of chronic obstructive pulmonary disease, on home oxygen, congestive heart failure, diabetes, deep venous thrombosis, hypertension and hyperlipidemia, who was brought in for hypoxic respiratory failure. The Gastrointestinal Service has been consulted for evaluation of elevated liver enzymes. The patient had acute hepatitis serology performed and has a negative hepatitis A IgM, hepatitis B surface antigen, hepatitis B core IgM and hepatitis C antibody. I suspect this is related to shock liver as her liver enzymes are already improving. We will repeat her liver enzymes tomorrow and if they continue to trend downwards, nothing further is warranted. However, if the liver enzymes rise up or remain the same, we may consider getting an MRCP. I will also get an autoimmune panel with a.m. labs tomorrow to make sure she does not have autoimmune hepatitis. Thank you for this consultation. <ELECTRONICALLY SIGNED> By: Tristen Mathias MD 04/12/19 0653 1346 195Tristen Mathias MD /nt
[2019-04-12 08:30] VITALS: BP 119/64
[2019-04-12 12:00] VITALS: BP 118/67
[2019-04-12 13:11] LABS: ANA INTERPRETATION Negative (Negative)
--- NOTE | 2019-04-12 14:45 | NUR ---
CM spoke with nurse, do not anticipate dc today. CM to fax skilled referral to [facility] tomorrow, auth will need to be obtained.
[2019-04-12 16:00] VITALS: BP 140/71
--- NOTE | 2019-04-12 18:06 | NUR ---
ASSUSSMED CARE OF PT APPROX 0730. REASSESSMENT COMPLETED CHARTED. MEDICATIONS GIVEN CHARTED. SAFTEY PRECAUTIONS UTILIZED. HOURLY ROUNDING FOR PT SAFTEY. PT UP TO BESIDE CAMODE WITH X1 ASSIST AND WALKER. PT ON CARDIAC MONITORING. PT HAD LARGE FORMED BM TODAY. PERSONAL ITEMS AND CALL LIGHT WITHIN REACH.
[2019-04-12 20:00] VITALS: BP 138/57
[2019-04-13 00:37] VITALS: BP 123/55
[2019-04-13 04:20] VITALS: BP 107/49
--- NOTE | 2019-04-13 05:42 | NUR ---
ASSUMED PATIENT CARE AT 1900. ASSESSMENT COMPLETED CHARTED. VSS. PATIENT IS SR ON THE MONITOR. HOURLY ROUNDING IN PLACE FOR PATIENT SAFETY. CLWR.
[2019-04-13 06:00] LABS: ALBUMIN 2.4 g/dL (3.4-5.0); CREATININE 0.8 mg/dL (0.6-1.3); TOTAL BILIRUBIN 0.4 mg/dL (<0.1-1.0); TOTAL PROTEIN 5.6 g/dL (6.4-8.2)
[2019-04-13 06:06] LABS: CALCIUM 8.3 mg/dL (8.5-10.1)
[2019-04-13 06:08] LABS: POTASSIUM 2.6 mmol/L (3.5-5.1)
[2019-04-13 07:46] VITALS: BP 121/53
--- NOTE | 2019-04-13 09:30 | NUR ---
cm faxed referral to [facility]. [phone].
[2019-04-13 12:31] VITALS: BP 130/61
[2019-04-13 16:00] VITALS: BP 113/59
[2019-04-13 20:00] VITALS: BP 121/57
[2019-04-14 00:08] VITALS: BP 102/51
[2019-04-14 04:00] VITALS: BP 113/51
[2019-04-14 04:54] LABS: HEMOGLOBIN 10.8 gm/dL (12.0-15.0); MCH 27.6 pg (26.0-34.0); MCHC 31.9 g/dL (28.0-37.0); MCV 86.5 fL (80.0-100.0); MPV 7.2 fl. (7.2-11.1); RBC 3.93 mil/uL (4.20-5.00); RDW-CV 15.3 % (10.5-14.5); WBC 11.7 thou/uL (4.0-11.0)
[2019-04-14 05:13] LABS: ALBUMIN 2.3 g/dL (3.4-5.0); CALCIUM 8.3 mg/dL (8.5-10.1); CREATININE 0.7 mg/dL (0.6-1.3); POTASSIUM 3.4 mmol/L (3.5-5.1); TOTAL BILIRUBIN 0.4 mg/dL (<0.1-1.0); TOTAL PROTEIN 5.6 g/dL (6.4-8.2)
--- NOTE | 2019-04-14 06:26 | NUR ---
ASSUMED PATIENT CARE AT 1900. ASSESSMENT COMPLETED CHARTED. VSS. PATIENT IS NORMAL SINUS RHYTHM ON THE MONITOR. HOURLY ROUNDING IN PLACE FOR PATIENT SAFETY. CLWR.
[2019-04-14 08:00] VITALS: BP 82/34
[2019-04-14 11:22] VITALS: BP 116/56
[2019-04-14 15:54] VITALS: BP 119/57
--- NOTE | 2019-04-14 19:06 | NUR ---
ASSUMED PT CARE AT 0730. ASSESSMENT COMPLETED CHARTED. ABLE TO MAKE NEEDS KNOWN. RESTING IN BED MOST OF THE DAY. UP WITH ASSIST TO BSC. C/O CHRONIC BACK PAIN AND GAVE PRN PER EMAR. C/O SOA OFF AND ON TODAY AND GAVE SCHEDULED BREATHING TX BUT REFUSING BIPAP. WILL CONTINUE TO MONITOR.
[2019-04-14 20:00] VITALS: BP 115/60
[2019-04-15] VITALS: BP 121/62
[2019-04-15 04:00] VITALS: BP 112/56
--- NOTE | 2019-04-15 06:34 | NUR ---
VSS. PT TOLERATED BIPAP FOR ONLY 45 MINUTES TONIGHT. REFUSED REPOSITIONING MULTIPLE TIMES, EDUCATED BUT CONTINUED TO DECLINE. HIPS SHIFTED TO RELIEVE PRESSURE. CALL LIGHT WITHIN REACH.
[2019-04-15 08:00] VITALS: BP 103/56
--- NOTE | 2019-04-15 09:11 | NUR ---
ASSUMED CARE OF PT THIS AM AROUND 07- FRUIT AND VEGETABLE PACKER IN PLACE ORDERED, TRACING SR- UPON ASSESSMENT PT NOTED TO BE RESTING IN BED, WATCHING TV- PT A&O X4- X8EQTTPQC OF B/B- ASSIST X1 WITH TRANSFERS- LEFT UPPER LOBE NOTED TO BE CLEAR, DIMINISHED IN ALL OTHER LUNG BASES- DYSPNEA NOTED ON EXERTION- VSS, O2 SAT 96% ON 3L VIA NC- ABD SOFT/ROUND/OBESE, BS X4 QUADS- LAST BM REPORTED X2 DAYS AGO- IV NOTED TO RIGHT FA AND RIGHT WRIST INTACT AND SL- IV ABT GIVEN PRESCIBED- FAIR PO INTAKE NOTED THIS AM WITH BREAKFAST, BS MONITORED ORDERED WITH INSULIN PRESCIBED- PT RATES PAIN TO BACK AND LE 12/15, PRN HYDROCODONE INDICATED- CALL LIGHT AND PERSONAL BELONGINGS WITH IN REACH- HOURLY ROUNDS IN PLACE R/T SAFETY/NEEDS- ALL NEEDS MET AT THIS TIME-WCTM
[2019-04-15 12:09] VITALS: BP 125/69
--- NOTE | 2019-04-15 12:27 | NUR ---
cm completed initial assessment to discuss d/c plan. pt is A&Ox4. pt lives at home w/her b/f and six adult children. 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 pt has no DME. pt has no hx w/snf or HH. Nurse informed CM acute rehab consult placed. cm to cont to follow to assist as needed.
[2019-04-15 15:48] VITALS: BP 129/61
--- NOTE | 2019-04-15 16:13 | NUR ---
PT CURRENTLY RESTING IN BED, EYES CLOSED- PT NOTED TO BE UP TO BED SIDE CHAIR WITH MEALS THIS SHIFT, TOLERATING WELL- STRETCHER OPERATOR IN PLACE ORDERED, TRACING SR- IV TO RIGHT FA AND RIGHT WRIST INTACT AND SL, IV ABT GIVEN THIS SHIFT PRESCIBED- FAIR PO INTAKE NOTED THIS SHIFT WITH MEALS, BS MONITORED ORDERED, SSI PRESCIBED- PRN HYDROCODONE GIVEN X2 THIS SHIFT R/T BACK PAIN- CALL LIGHT AND PERSONAL BELONGINGS WITH IN REACH- PT MAKES NEEDS KNOWN- ALL NEEDS MET AT THIS TIME-WCTM
[2019-04-15 20:00] VITALS: BP 95/41
[2019-04-16] VITALS: BP 92/41
--- NOTE | 2019-04-16 00:50 | NUR ---
PT ALERT ORIENTED X4. TURN Q 2 HRS. O2 AT 3LITERS NC. PT AGREED TO WEAR BIPAP TONIGHT WITH SEDATION. XANAX, MELATONIN AND BENADRYL GIVEN. PT WEARING BIPAP WITHOUT ASKING TO COME OFF. TELEMETRY SHOWS SR. REDD
[2019-04-16 04:00] VITALS: BP 94/40
--- NOTE | 2019-04-16 04:01 | NUR ---
PT DID FAIRLY WELL WITH BIPAP THIS SHIFT. ON AT 2300 OFF AT 0115, BACK ON AT 0230 OFF AT 0400. PAIN MEDICATION GIVEN FOR BACK PAIN.
[2019-04-16 07:49] VITALS: BP 91/41
--- NOTE | 2019-04-16 09:15 | NUR ---
ASSUMED CARE OF PT THIS AM AROUND 07- BAG MACHINE OPERATOR HELPER IN PLACE ORDERED, TRACING SR- UPON ASSESSMENT PT NOTED TO BE RESTING IN BED-PT A&O X4- CONTINENT OF B/B- ASSIST X1 WITH TRANSFERS- BRAD CLEAR TO AUSCULTAION, DIMINISHED IN BASES- DYSPNEA NOTED ON EXERTION- VSS, O2 SAT 100% ON 3L VIA NC- ABD SOFT/ROUND/NON-TENDER, BS X4 QUADS- IV NOTED TO RIGHT FA AND RIGHT WRIST INTACT AND SL- IV ABT PRESCRIBED THIS AM- FAIR PO INTAKE NOTED THIS AM WITH BREAKFAST, BS MONITORED ORDERED WITH INSULIN PRESCIBED- PT C/O PAIN TO BACK, PRN HYDROCODONE INDICATED- BLE +1 EDEMA/CELLULITIS WITH NOTED REDNESS AND DRY FLACKEY SKIN- CALL LIGHT AND PERSONAL BELONGINGS WITH IN REACH- HOURLY ROUNDS IN PLACE R/T SAFETY/NEEDS- ALL NEEDS MET AT THIS TIME-WCTM
[2019-04-16 12:44] VITALS: BP 101/59
[2019-04-16 16:50] VITALS: BP 122/60
[2019-04-16 20:00] VITALS: BP 108/54
[2019-04-17] VITALS: BP 96/43
--- NOTE | 2019-04-17 01:57 | NUR ---
PT ALERT ORIENTED. REFUSED TO TRY BIPAP TONIGHT. O2 AT 4 LITERS NC. HYDROCODONE GIVEN FOR PAIN. TELEMETRY SHOWS SR. WCTM
[2019-04-17 04:00] VITALS: BP 113/58
--- NOTE | 2019-04-17 04:29 | NUR ---
PT NOT PARTICIPATING IN CARE. PT ASKING NURSE HAND HER WATER WHEN IT IS WITH IN REACH. PT TOLD TO USE ARMS AND REACH FOR THINGS ON TABLE. PT RELUCTANTLY REACHING FOR TISSUES AND WATER.
[2019-04-17 08:04] VITALS: BP 113/51
--- NOTE | 2019-04-17 09:25 | NUR ---
ASSUMED CARE OF PT THIS AM AROUND 07- FLATWORK PRESSER IN PLACE ORDERED, TRACING SR- UPON ASSESSMENT PT NOTED TO BE RESTING IN BED- PT A&O X4-CONTINENT OF BOWEL AND BLADDER- ASSIST X1 WITH TRANSFERS- DIMINISHED LUNG SOUNDS, DYSPNEA NOTED ON EXERTION- VSS, O2 SAT 100% ON 3L VIA NC- ABD SOFT/ROUND/NON-TENDER, BS X4 QUADS- LAST BM REPORTED X3 DAYS AGO- IV NOTED TO RIGHT FA AND LEFT HAND INTACT, IV ABT GIVEN PRESCIBED- GOOD PO INTAKE NOTED THIS AM WITH BREAKFAST, BS MONITORED ORDERED WITH INSULIN PRESCRIBED- PT RATES PAIN /10 TO BACK, PRN HYDROCODONE GIVEN REQUESTED THIS AM- CALL LIGHT AND PERSONAL BELONGINGS WITH IN REACH- PT MAKES NEEDS KNOWN- ALL NEEDS MET AT THIS TIME-WCTM
[2019-04-17 11:40] VITALS: BP 119/66
[2019-04-17 15:37] VITALS: BP 115/55
[2019-04-17 20:00] VITALS: BP 122/66
[2019-04-18] VITALS: BP 107/53
[2019-04-18 04:00] VITALS: BP 112/49
--- NOTE | 2019-04-18 06:49 | NUR ---
ASSUMED CARE OF PT AFTER REPORT AT 1930. PT A&OX4. VSS. PHYSICAL ASSESSMENT COMPLETED AND CHARTED. PT ON O2 AT 3L/BIPAP AT HS. PT TRACING SR ON TELE. PT UPSTANDBY TO BSC. PT COMPLAINED OF BACK PAIN-MEDS GIVEN PER MAR. PT ABLE TO SLEEP WELL ON BED. CALL LIGHT WITHIN REACH.
[2019-04-18 07:55] VITALS: BP 105/51
--- NOTE | 2019-04-18 08:23 | NUR ---
ASSUMED CARE AFTER REPORT APPROX 0730. OX4, FLAT AFFECT, SIGHS WITH TRANSFER TO CHAIR FOR BREAKFAST, SBA. PICK UP ATTENDANT IN PLACE, SR. ASSESSMENT COMPLETE, DOCUMENTED. VSS, O2 SAT 100% ON 3L. APPLE JUICE CONSUMED AFTER BS 71, NOW EATING BREAKFAST. PRN PAIN MED GIVEN PER EMAR. CALL LIGHT IN REACH. HOURLY ROUNDING FOR SAFETY.
[2019-04-18] MEDS ORDERED: MEDROL DOSPAK21 TA1 PO (10:58)
[2019-04-18 12:00] VITALS: BP 142/73
--- NOTE | 2019-04-18 12:23 | NUR ---
Pt refusing to go to SNF, updated Pt's dtr, dtr prefers SNF, but prepared for Pt to return home at dc. HH referral faxed to [facility]. [facility] to roller picker and transport Pt home between 3-330pm today.
[2019-04-18] MEDS ORDERED: TRAMADOL 50 MG50 MG PO (12:32)
[2019-04-18] MEDS ORDERED: ALPRAZOLAM0.5 M2 PO (12:32)
[2019-04-18] MEDS ORDERED: PLAVIX 75 MG TA75 MG PO (13:59)
[2019-04-18] MEDS ORDERED: ELIQUIS2.5 MG PO (14:01)
[2019-04-18] MEDS ORDERED: ELIQUIS5 MG PO (14:12)
--- NOTE | 2019-04-18 14:30 | NUR ---
PATIENT'S FAMILY CALLED TO SAY D/T WEATHER AND SLICK ROADS, CANNOT TRANSPORT PATIENT TO HOME. CM HAS ARRANGED WC VAN. PATIENT'S SISTER CALLED TO INFORM THAT PATIENT DOES NOT HAVE MEDS AT HOME THEY WERE TAKEN TO SNF PRIOR TO MOST RECENT SNF. COORDINATION OF DISCHARGE MEDS WITH SISTER AND PHYSICIAN. MEDS CALLED IN TO PHARMACY WITH EXCEPTION OF CONTROLLED MEDS. SCRIPTS GIVEN TO PATIENT. DC MED LIST AND INSTRUCTIONS REVIEWED. 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 MONITOR CLEANED AND RETURNED TO POCKET FOR ROOM 218. PATIENT IN POSSESSION OF ALL BELONGINGS. PATIENT GIVEN GOWN AND BLANKET TO SUPPLEMENT COAT AND SLIPPERS.
--- NOTE | 2019-04-22 12:02 | CON ---
[address] [address] CONSULTATION Name: BREANA GALEAS Nestor Room: [address] IN .R.#: [id number] Admission: 04/08/19 Attend Phys: Shine Hunter MD Discharge: 04/18/19 Date of : 45 Report #: [id number] THIS REPORT FOR: //name// CC: Shine Landaverde DATE OF SERVICE: 04/10/2019 REQUESTING PHYSICIAN: Dr. Miller. REASON FOR CONSULTATION: DVT. HISTORY OF PRESENT ILLNESS: The patient is known to our service. She is a very pleasant 73-year-old white female who has a known 4-cm abdominal aortic aneurysm that we are following as an outpatient. She was recently in [facility] and found in the bathroom in respiratory distress. She was brought emergently to the ER. She is currently in the ICU, undergoing workup of her respiratory failure. Ultrasound revealed acute DVT, left common femoral vein. This is only partially occlusive. REVIEW OF SYSTEMS: A 12-point review of systems was reviewed and negative as per HPI. PAST MEDICAL HISTORY: Significant for: 1. Bronchitis. 2. COPD. 3. Dyspnea. 4. Respiratory failure. 5. Tachycardia. 6. Abdominal aortic aneurysm. 7. Hypertension. 8. Diabetes. FAMILY HISTORY: Noncontributory. SOCIAL HISTORY: The patient denies drug or alcohol use. She is a former smoker. PAST SURGICAL HISTORY: Significant for: 1. Knee replacement. 2. Hysterectomy. 3. Ankle fracture surgery. HOME MEDICATIONS: Include: 1. Multiple inhalers. 2[place] [address] CONSULTATION Name: BREANA GALEAS Room: [address]#: [id number] Admission: 04/08/19 Attend Phys: Shine Hunter MD Discharge: 04/18/19 Date of : 45 Report #: [id number] 3. Linezolid. 4. [place]. 5. Tramadol. 6. Alprazolam. 7. Cymbalta. 8. Lipitor. ALLERGIES: LATOSHA INHIBITORS, ARB, ANGIOTENSIN RECEPTOR ANTAGONIST and ASPIRIN. PHYSICAL EXAMINATION: GENERAL: The patient is in no acute distress. She is alert and oriented. She is on 4 liters nasal cannula. HEENT: Normocephalic, atraumatic. NECK: Supple. LUNGS: Coarse. HEART: Regular rate and rhythm. ABDOMEN: Soft, nontender, nondistended. EXTREMITIES: She has got edema of her bilateral upper and lower extremities, worse in the lower extremities. NEUROLOGIC: Grossly intact. I reviewed the ultrasound. I agree there is DVT. ASSESSMENT: Deep venous thrombosis, left leg. RECOMMENDATIONS: We would recommend anticoagulation. She is currently on Eliquis which is fine. I recommend repeat duplex in a few weeks to see how the DVT is resolving. If any worsening, we would repeat DVT study to make sure it is not extending. She is not a good candidate for any thrombolytic therapy. I do not think she has an IVC filter at this time. <ELECTRONICALLY SIGNED> By: Keven Caballero MD 04/22/19 1202 [id number] [id number] Caballero MD /nt
== END 2019-04-18 15:37 | disposition home health service (06) | DRG 280 ==
LOC: M.ERS 02:23 → M.2W 06:36 → M.TBA-ER 06:36 → M.2W 08:44 → M.ICU 11:43 → M.2W 04-10 22:42
PROVIDERS: Emergency Medicine; Family Medicine; Internal Medicine Gastroenterology; Internal Medicine Pulmonary Disease; Nurse Practitioner Adult Health; Surgery; ADMIT Internal Medicine
PROC: 5A09357 Assistance with Respiratory Ventilation, Less than 24 Consecutive Hours, Continuous Positive Airway Pressure (ICD-10-PCS; principal; 2019-04-08)
PROC: 5A09357 Assistance with Respiratory Ventilation, Less than 24 Consecutive Hours, Continuous Positive Airway Pressure (ICD-10-PCS; 2019-04-09)
PROC: 5A09357 Assistance with Respiratory Ventilation, Less than 24 Consecutive Hours, Continuous Positive Airway Pressure (ICD-10-PCS; 2019-04-10)
PROC: 5A09357 Assistance with Respiratory Ventilation, Less than 24 Consecutive Hours, Continuous Positive Airway Pressure (ICD-10-PCS; 2019-04-11)
PROC: 5A09357 Assistance with Respiratory Ventilation, Less than 24 Consecutive Hours, Continuous Positive Airway Pressure (ICD-10-PCS; 2019-04-15)
PROC: 5A09357 Assistance with Respiratory Ventilation, Less than 24 Consecutive Hours, Continuous Positive Airway Pressure (ICD-10-PCS; 2019-04-16)
PROC: 5A09357 Assistance with Respiratory Ventilation, Less than 24 Consecutive Hours, Continuous Positive Airway Pressure (ICD-10-PCS; 2019-04-17)
DX: I21.A1 Myocardial infarction type 2 (principal); J96.22 Acute and chronic respiratory failure with hypercapnia; J96.21 Acute and chronic respiratory failure with hypoxia; E43 Unspecified severe protein-calorie malnutrition; I50.43 Acute on chronic combined systolic (congestive) and diastolic (congestive) heart failure; I82.412 Acute embolism and thrombosis of left femoral vein; Z68.41 Body mass index [BMI] 40.0-44.9, adult; J98.11 Atelectasis; I42.9 Cardiomyopathy, unspecified; L03.116 Cellulitis of left lower limb; L03.115 Cellulitis of right lower limb; E66.01 Morbid (severe) obesity due to excess calories; F41.1 Generalized anxiety disorder; E87.6 Hypokalemia; I87.8 Other specified disorders of veins; F32.9 Major depressive disorder, single episode, unspecified; J43.9 Emphysema, unspecified; G89.29 Other chronic pain; M54.9 Dorsalgia, unspecified; D64.9 Anemia, unspecified; E78.5 Hyperlipidemia, unspecified; R74.0 Nonspecific elevation of levels of transaminase and lactic acid dehydrogenase [LDH]; I87.2 Venous insufficiency (chronic) (peripheral); I25.10 Atherosclerotic heart disease of native coronary artery without angina pectoris; I11.0 Hypertensive heart disease with heart failure; I71.4 Abdominal aortic aneurysm, without rupture; Z96.652 Presence of left artificial knee joint; K80.20 Calculus of gallbladder without cholecystitis without obstruction; M19.90 Unspecified osteoarthritis, unspecified site; E11.51 Type 2 diabetes mellitus with diabetic peripheral angiopathy without gangrene; E78.00 Pure hypercholesterolemia, unspecified; E11.40 Type 2 diabetes mellitus with diabetic neuropathy, unspecified; Z90.710 Acquired absence of both cervix and uterus; Z79.899 Other long term (current) drug therapy; Z79.84 Long term (current) use of oral hypoglycemic drugs; Z88.6 Allergy status to analgesic agent; Z88.8 Allergy status to other drugs, medicaments and biological substances; Z87.891 Personal history of nicotine dependence; Z83.6 Family history of other diseases of the respiratory system; Z79.01 Long term (current) use of anticoagulants; Z99.81 Dependence on supplemental oxygen; Z91.19 Patient's noncompliance with other medical treatment and regimen

== ENCOUNTER 2019-04-21 16:13 | Inpatient (IN) | payer OTHER, MEDICARE, MEDICAID ==
[~2019-04-21] VITALS: Ht 157.5 cm; Wt 91.6 kg
[~2019-04-21 16:13] MED LIST changes: +ELIQUIS2.5 MG PO; +ELIQUIS5 MG PO; +MASOPHEN325 MG PO; +MEDROL DOSPAK21 TA1 PO; +PLAVIX 75 MG TA75 MG PO
[2019-04-21 16:14] VITALS: BP 121/63
[2019-04-21 16:33] LABS: HEMATOCRIT 37.5 % (37.0-47.0); HEMOGLOBIN 12.1 gm/dL (12.0-15.0); MCHC 32.4 g/dL (28.0-37.0); MCV 86.6 fL (80.0-100.0); MPV 8.1 fl. (7.2-11.1); NUCLEATED RBCS 0 /100WBC; PLATELET COUNT* 262 thou/uL (150-400); RBC 4.33 mil/uL (4.20-5.00); RDW-CV 15.5 % (10.5-14.5); WBC 20.1 thou/uL (4.0-11.0)
[2019-04-21 16:45] LABS: URINE BILIRUBIN NEGATIVE (Negative); URINE BLOOD NEGATIVE (Negative); URINE CLARITY CLEAR; URINE COLOR STRAW; URINE GLUCOSE-RANDOM NEGATIVE (Negative); URINE KETONES NEGATIVE (Negative); URINE LEUKOCYTES-REFLEX NEGATIVE (Negative); URINE NITRITE-REFLEX NEGATIVE (Negative); URINE PROTEIN NEGATIVE (Negative); URINE SPECIFIC GRAVITY 1.015 (1.005-1.030); URINE UROBILINOGEN 0.2 E.U./dl (0.2-1.0)
[2019-04-21 16:47] LABS: APTT 24.8 Seconds (25.0-31.3); PROTIME 10.7 Seconds (9.20-11.50)
[2019-04-21 16:56] LABS: CALCIUM 8.4 mg/dL (8.5-10.1); CREATININE 0.5 mg/dL (0.6-1.3)
[2019-04-21 16:57] LABS: ABSOLUTE EOSINOPHILS 0.2 thou/uL (0.0-0.7); ABSOLUTE LYMPHOCYTES 0.8 thou/uL (0.8-5.3); ABSOLUTE MONOCYTES 2.4 thou/uL (0.0-1.2); ABSOLUTE NEUTROPHILS 16.7 thou/uL (1.6-8.1)
[2019-04-21 16:58] LABS: ANISOCYTOSIS 1+; PLATELET ESTIMATE ADEQUATE; POTASSIUM 2.9 mmol/L (3.5-5.1)
[2019-04-21 17:21] LABS: ALBUMIN 3.2 g/dL (3.4-5.0); CK-MB MASS 1.6 ng/mL (<0.5-3.6); TOTAL BILIRUBIN 0.5 mg/dL (<0.1-1.0); TOTAL PROTEIN 6.6 g/dL (6.4-8.2)
[2019-04-21 19:07] VITALS: BP 117/86
[2019-04-21 20:00] VITALS: BP 131/70
[2019-04-22] VITALS (8 sets, daily range): BP systolic 106–140; BP diastolic 47–74
--- NOTE | 2019-04-22 10:36 | EKG ---
[place] [address] ELECTROCARDIOGRAM REPORT Name: BREANA GALEAS Room: [address] ADM IN .R.#: [id number] Admission: 04/21/19 Attend Phys: Grant Aparicio Discharge: Date of : 45 Report #: [id number] THIS REPORT FOR: //name// [facility] ED Test Date: 2019-04-21 Test Time: 16:25:12 Pat Name: BREANA GALEAS Department: Room: [facility] Gender: F Report Analyst: TOM : 1945 Requested By: Pablito Salas Order Number: [id number] MD: Morgan Lima Measurements Intervals [place] Rate: 90 P: 58 ND: 138 QRS: 74 QRSD: 96 T: 150 QT: 369 QTc: 452 Interpretive Statements Sinus rhythm Abnormal T, consider ischemia, anterior leads Compared to ECG 04/08/2019 02:27:49 T-wave abnormality now present Possible ischemia now present Sinus tachycardia no longer present Electronically Signed On 04-22-2019 10:35:58 MANAGER GREEN by Morgan Lima [email or web address] <ELECTRONICALLY SIGNED> By: Morgan Lima MD, FACC 04/22/19 1035 1625 1625 Morgan Lima MD, [facility] /EPI
[2019-04-22 19:44] LABS: CALCIUM 8.1 mg/dL (8.5-10.1); CREATININE 0.8 mg/dL (0.6-1.3); MAGNESIUM 1.7 mg/dL (1.8-2.4); POTASSIUM 3.8 mmol/L (3.5-5.1)
[2019-04-23 04:00] VITALS: BP 131/56
[2019-04-23 08:00] VITALS: BP 149/62
[2019-04-23 11:30] VITALS: BP 140/65
[2019-04-23 16:00] VITALS: BP 130/56
[2019-04-23 20:48] VITALS: BP 123/54
[2019-04-23 23:45] VITALS: BP 151/72
[2019-04-24 03:55] VITALS: BP 151/75
[2019-04-24 08:00] VITALS: BP 143/70
[2019-04-24 08:11] LABS: URINE BILIRUBIN NEGATIVE (Negative); URINE BLOOD NEGATIVE (Negative); URINE CLARITY CLEAR; URINE COLOR YELLOW; URINE GLUCOSE-RANDOM NEGATIVE (Negative); URINE KETONES NEGATIVE (Negative); URINE LEUKOCYTES-REFLEX TRACE (Negative); URINE NITRITE-REFLEX NEGATIVE (Negative); URINE PROTEIN NEGATIVE (Negative); URINE UROBILINOGEN 0.2 E.U./dl (0.2-1.0)
[2019-04-24 08:20] LABS: SQUAMOUS 4-10 Moderate /LPF (0-3)
[2019-04-24 08:22] LABS: BACTERIA-REFLEX None Seen /HPF (None Seen); CASTS None Seen /LPF (None Seen); CRYSTALS None Seen /LPF (None Seen); MUCUS 0-3 Light strn/LPF (None Seen); URINE RBC None Seen /HPF (0-2); URINE WBC-REFLEX 6-15 Few /HPF (0-5)
[2019-04-24 09:51] LABS: ABSOLUTE BASOPHILS 0.1 thou/uL (0.0-0.2); ABSOLUTE EOSINOPHILS 0.4 thou/uL (0.0-0.7); ABSOLUTE LYMPHOCYTES 2.1 thou/uL (0.8-5.3); ABSOLUTE MONOCYTES 1.7 thou/uL (0.0-1.2); ABSOLUTE NEUTROPHILS 7.4 thou/uL (1.6-8.1); BASOPHILS 0.8 %; EOSINOPHILS 3.4 %; HEMATOCRIT 34.4 % (37.0-47.0); HEMOGLOBIN 11.1 gm/dL (12.0-15.0); MCH 28.4 pg (26.0-34.0); MCHC 32.4 g/dL (28.0-37.0); MCV 87.7 fL (80.0-100.0); MONOCYTES 14.4 %; MPV 8.5 fl. (7.2-11.1); NUCLEATED RBCS 0 /100WBC; PLATELET COUNT* 231 thou/uL (150-400); POLYS 63.4 %; RBC 3.92 mil/uL (4.20-5.00); RDW-CV 15.4 % (10.5-14.5); WBC 11.6 thou/uL (4.0-11.0)
[2019-04-24 10:33] LABS: ALBUMIN 2.9 g/dL (3.4-5.0); CALCIUM 8.7 mg/dL (8.5-10.1); CREATININE 0.5 mg/dL (0.6-1.3); POTASSIUM 3.9 mmol/L (3.5-5.1); TOTAL BILIRUBIN 0.5 mg/dL (<0.1-1.0); TOTAL PROTEIN 6.3 g/dL (6.4-8.2)
[2019-04-24 13:12] VITALS: BP 143/83
[2019-04-24 18:12] VITALS: BP 157/86
[2019-04-24 20:53] VITALS: BP 120/61
[2019-04-25] VITALS: BP 140/76
[2019-04-25 03:05] LABS: GLYCOHEMOGLOBIN (HGB A1C) 9.2 % (4.8-5.6)
[2019-04-25 04:00] VITALS: BP 154/64
[2019-04-25 05:20] LABS: ABSOLUTE BASOPHILS 0.1 thou/uL (0.0-0.2); ABSOLUTE EOSINOPHILS 0.3 thou/uL (0.0-0.7); ABSOLUTE LYMPHOCYTES 1.9 thou/uL (0.8-5.3); ABSOLUTE MONOCYTES 1.4 thou/uL (0.0-1.2); BASOPHILS 0.9 %; EOSINOPHILS 3.2 %; HEMATOCRIT 30.3 % (37.0-47.0); HEMOGLOBIN 9.9 gm/dL (12.0-15.0); LYMPHOCYTES 17.4 %; MCH 28.5 pg (26.0-34.0); MCHC 32.7 g/dL (28.0-37.0); MCV 87.1 fL (80.0-100.0); MONOCYTES 13.2 %; MPV 8.5 fl. (7.2-11.1); NUCLEATED RBCS 0 /100WBC; PLATELET COUNT* 212 thou/uL (150-400); POLYS 65.3 %; RBC 3.48 mil/uL (4.20-5.00); RDW-CV 15.4 % (10.5-14.5); WBC 10.7 thou/uL (4.0-11.0)
[2019-04-25 05:32] LABS: ALBUMIN 2.6 g/dL (3.4-5.0); CALCIUM 8.5 mg/dL (8.5-10.1); CREATININE 0.6 mg/dL (0.6-1.3); POTASSIUM 3.4 mmol/L (3.5-5.1); TOTAL BILIRUBIN 0.3 mg/dL (<0.1-1.0); TOTAL PROTEIN 5.8 g/dL (6.4-8.2)
[2019-04-25 08:00] VITALS: BP 117/59
[2019-04-25 11:53] VITALS: BP 156/72
[2019-04-25 12:52] VITALS: BP 113/57
[2019-04-25 15:45] VITALS: BP 113/57
== END 2019-04-25 18:01 | disposition home health service (06) | DRG 637 ==
LOC: M.ERS 16:13 → M.TBA-ER 18:56 → M.2W 18:56
PROVIDERS: Emergency Medicine Emergency Medical Services; Internal Medicine; ADMIT Internal Medicine
PROC: 5A09357 Assistance with Respiratory Ventilation, Less than 24 Consecutive Hours, Continuous Positive Airway Pressure (ICD-10-PCS; principal; 2019-04-24)
DX: E11.649 Type 2 diabetes mellitus with hypoglycemia without coma (principal); G93.41 Metabolic encephalopathy; I10 Essential (primary) hypertension; G89.29 Other chronic pain; M54.5 Low back pain; J44.9 Chronic obstructive pulmonary disease, unspecified; Z88.6 Allergy status to analgesic agent; Z88.8 Allergy status to other drugs, medicaments and biological substances; Z87.891 Personal history of nicotine dependence; Z80.0 Family history of malignant neoplasm of digestive organs; Z83.6 Family history of other diseases of the respiratory system; Z28.21 Immunization not carried out because of patient refusal; Z79.899 Other long term (current) drug therapy

== ENCOUNTER 2019-07-25 17:19 | Inpatient (IN) | payer OTHER, MEDICARE, MEDICAID ==
[~2019-07-25] VITALS: Ht 157.5 cm; Wt 101.2 kg
--- NOTE | ~2019-07-25 | CON ---
[address] [address] CONSULTATION Name: BREANA GALEAS Nestor Room: [address] IN .R.#: [id number] Admission: 07/26/19 Attend Phys: Bharat Abraham MD Discharge: Date of : 45 Report #: [id number] THIS REPORT FOR: //name// cc: Ian Landaverde William F. DO ~ THIS REPORT FOR: //name// CC: Bharat Landaverde INDICATION: Heart failure. HISTORY OF PRESENT ILLNESS: The patient is a very pleasant 73-year-old white female who was admitted with increasing shortness of breath. The patient was found to be hypoxic in the Emergency Room. She reports a history of COPD. She quit smoking 3 years ago. She reported increasing dyspnea and cough 3 days prior to admission. She denied any fevers, chills, myalgias, nausea, or vomiting. Through this, she denied any chest pain. An echocardiogram shows moderate left ventricular systolic dysfunction with possible underlying wall motion abnormality suggesting the possibility of underlying ischemic coronary artery disease. The patient has improved during hospitalization. She remains somewhat short of breath at this time and on supplemental oxygen. PAST MEDICAL HISTORY: 1. Type 2 diabetes mellitus. 2. COPD. 3. Hyperlipidemia. 4. Hypothyroidism. 5. History of DVT x 2. 6. Chronic hypoxia, on home oxygen. PAST SURGICAL HISTORY: 1. Total abdominal hysterectomy. 2. Bilateral knee replacements. 3. Ankle repair. 4. Cholecystectomy. 5. Appendectomy. FAMILY HISTORY: Noncontributory. SOCIAL HISTORY: The patient is . She quit smoking 3 years ago. ALLERGIES: ASPIRIN INTOLERANCE, WHICH HAS CAUSED BLEEDING IN THE PAST AND LATOSHA INHIBITORS, WHICH CAUSE ANGIOEDEMA. HOME MEDICATIONS: Tylenol p.r.n., albuterol p.r.n., alprazolam p.r.n., [place] [address] CONSULTATION Name: BREANA GALEAS Room: [address]#: [id number] Admission: 07/26/19 Attend Phys: Bharat Abraham MD Discharge: Date of : 45 Report #: [id number] 80 mg at bedtime, Symbicort 160/4.5 b.i.d., Bumex 1 tablet daily, Cymbalta 30 mg daily, Lexapro 5 mg 2 tablets daily, Pepcid 20 mg b.i.d., gabapentin 600 mg at bedtime, guaifenesin b.i.d., hydrochlorothiazide 25 mg daily, Lantus 20 units at bedtime, sliding scale insulin before meals and at bedtime, Combivent inhaler q. 4 hours while awake, probiotic 1 capsule daily, Synthroid 50 mcg daily, Lidoderm patch topically as directed, Singulair 10 mg at bedtime, potassium chloride 10 mEq daily, Xarelto 15 mg at dinner, Janumet 50/500 mg b.i.d., and tramadol 50 mg p.r.n. q. 8 hours. REVIEW OF SYSTEMS: A 14-point review of systems is positive for generalized weakness, cough that is nonproductive, history of pneumonia, wheezing, dyspnea, orthopnea, PND, lower extremity edema, diabetes, hypothyroidism, previous UTIs, uterine cancer status post resection, DVT x 3, seasonal allergies, medical allergies as outlined above, anxiety, arthritis without connective tissue disease. She wears glasses without acute visual loss, has a history of epistaxis, has some poor dentition. Otherwise, 14-point review of systems unremarkable. PHYSICAL EXAMINATION: VITAL SIGNS: Blood pressure 155/82, pulse 70 and regular. GENERAL: This is a pleasant lady in no distress. Mood and affect appropriate. HEENT: O2 nasal cannula in place. Extraocular muscles intact. Mucous membranes moist. NECK: Shows no jugular venous distention. CHEST: Reveals diminished breath sounds throughout without appreciable wheezes. CARDIOVASCULAR: Reveals regular rhythm without gallop or murmur. ABDOMEN: Reveals protuberant abdomen, soft and nontender. EXTREMITIES: Shows trace ankle edema. SKIN: Dry. Peripheral pulses palpable. LABORATORY DATA: A 12-lead EKG shows sinus rhythm without any pathologic Q-waves. Intervals appear normal. No acute ST or T-wave abnormality. Labs are reviewed. Electrolytes within normal limits. Renal function appears normal. Serum glucose 310. Liver function studies are normal. Troponins less than 0.06 on 3 separate occasions. NT-proBNP 564. White blood cell count 12.7, hemoglobin 11.5, platelet count 438,000. Chest x-ray shows no acute cardiopulmonary abnormality. IMPRESSION AND RECOMMENDATIONS: 1. Acute shortness of breath, secondary to chronic obstructive pulmonary disease exacerbation. Continue pulmonary treatment as you are doing. 2. Moderate left ventricular systolic dysfunction by echocardiogram. The patient does not appear to have acute exacerbation at this time. We would recommend stress testing to rule out occult ischemia or underlying ischemic coronary artery disease. [address] [address] CONSULTATION Name: BREANA GALEAS Room: [address] IN [facility]#: [id number] Admission: 07/26/19 Attend Phys: Bharat Abraham MD Discharge: Date of : 45 Report #: [id number] 3. History of hyperlipidemia. The patient is on appropriate dose of atorvastatin. We would check fasting lipid profile to assure adequate treatment. 4. Hypertension. Make adjustments to medications as needed to improve blood pressure control. 5. Diabetes per hospital physician. 6. Recurrent deep venous thrombosis on chronic anticoagulation and appears stable. By: [id number] Nassar MD, FACC /nt
[2019-07-25 17:24] VITALS: BP 166/88
[2019-07-25] MEDS ORDERED: LEXAPRO5 MG PO (17:25)
[2019-07-25] MEDS ORDERED: BUMETANIDE 1 MG1 M1 PO (17:25)
[2019-07-25] MEDS ORDERED: HYDROCHLOROTHIA25 M2 PO (17:26)
[2019-07-25] MEDS ORDERED: XARELTO15 MG PO (17:26)
[2019-07-25 17:49] LABS: BE 6.6 mmol/L (-2 to +3); PCO2 47.7 mmHg (35.0-45.0); PO2 93.6 mmHg (75.0-100.0); pH 7.442 (7.340-7.450)
[2019-07-25 18:09] LABS: ABSOLUTE BASOPHILS 0.1 thou/uL (0.0-0.2); ABSOLUTE EOSINOPHILS 0.2 thou/uL (0.0-0.7); ABSOLUTE LYMPHOCYTES 3.6 thou/uL (0.8-5.3); ABSOLUTE NEUTROPHILS 7.5 thou/uL (1.6-8.1); BASOPHILS 1.1 %; EOSINOPHILS 1.5 %; HEMATOCRIT 37.8 % (37.0-47.0); HEMOGLOBIN 12.3 gm/dL (12.0-15.0); LYMPHOCYTES 29.1 %; MCH 28.3 pg (26.0-34.0); MCHC 32.4 g/dL (28.0-37.0); MCV 87.1 fL (80.0-100.0); MONOCYTES 7.7 %; MPV 7.5 fl. (7.2-11.1); NUCLEATED RBCS 0 /100WBC; PLATELET COUNT* 459 thou/uL (150-400); POLYS 60.6 %; RBC 4.34 mil/uL (4.20-5.00); RDW-CV 15.7 % (10.5-14.5); WBC 12.3 thou/uL (4.0-11.0)
[2019-07-25 18:17] LABS: CALCIUM 9.3 mg/dL (8.5-10.1); CREATININE 0.7 mg/dL (0.6-1.3); POTASSIUM 4.6 mmol/L (3.5-5.1)
[2019-07-25 18:22] LABS: ALBUMIN 3.3 g/dL (3.4-5.0); TOTAL BILIRUBIN 0.2 mg/dL (<0.1-1.0); TOTAL PROTEIN 7.4 g/dL (6.4-8.2)
[2019-07-25 19:48] VITALS: BP 135/75
[2019-07-25 21:30] VITALS: BP 138/79
--- NOTE | 2019-07-25 21:30 | NUR ---
RECIEVED REPORT FROM ER AND PT ADMITTED TO ROOM, O2 ON AT 3L/NC, VERY DYSPNIC WITH ACTIVITY. TELEMETRY APPLIED SHOWING [facility] LOWER LEGS DISCOLORED WITH RT ANKLE 2+ EDEMA AND LT ANKLE 1+ EDEMA. PT VERY GRUFF AND DEMANDING. REASSURANCE GIVEN MUCH POSSIBLE. SEE ADMISSION ASSESSMENT AND HX. WILL CONT TO MONITOR AND ASSIST NEEDED.
[2019-07-26 04:50] VITALS: BP 176/101
[2019-07-26 05:00] LABS: HEMATOCRIT 34.8 % (37.0-47.0); HEMOGLOBIN 11.6 gm/dL (12.0-15.0); MCH 28.5 pg (26.0-34.0); MCHC 33.3 g/dL (28.0-37.0); MCV 85.6 fL (80.0-100.0); MPV 7.4 fl. (7.2-11.1); NUCLEATED RBCS 0 /100WBC; PLATELET COUNT* 450 thou/uL (150-400); RBC 4.07 mil/uL (4.20-5.00); RDW-CV 15.8 % (10.5-14.5); WBC 11.1 thou/uL (4.0-11.0)
[2019-07-26 05:36] LABS: CALCIUM 8.6 mg/dL (8.5-10.1); CREATININE 0.8 mg/dL (0.6-1.3); POTASSIUM 3.7 mmol/L (3.5-5.1)
--- NOTE | 2019-07-26 06:55 | NUR ---
AWAKE ALL NIGHT WITH MULIPLE COMPLAINTS. BIPAP ON BUT NOT LIKING IT, REMOVED AND APPLIED O2 PER NC. C/O RT KNEE PAIN. C/O NO BEING ABLE TO BREATH. ATTEMPTED TO GIVE REASSURANCE BUT PT WANTING INSTANT SATISFACTION. TELEMETRY CONT TO SHOW SR. HS GOAL OF SAFETY ACHIEVED. HOURLY ROUNDING OBSERVED.
--- NOTE | 2019-07-26 07:05 | NUR ---
CHANGE OF SHIFT, BEDSIDE REPORT GIVEN PATIENT SEEN AT BEDSIDE, IN BED RESTING ASSUMED PATIENT CARE
[2019-07-26 07:13] LABS: ABSOLUTE LYMPHOCYTES 0.9 thou/uL (0.8-5.3); ABSOLUTE MONOCYTES 0.1 thou/uL (0.0-1.2); ABSOLUTE NEUTROPHILS 10.1 thou/uL (1.6-8.1); PLATELET ESTIMATE ADEQUATE
[2019-07-26 08:00] VITALS: BP 169/87
[2019-07-26 11:19] VITALS: BP 160/86
--- NOTE | 2019-07-26 11:36 | EKG ---
[place] [address] ELECTROCARDIOGRAM REPORT Name: BREANA GALEAS Room: [address]R.#: [id number] Admission: 07/25/19 Attend Phys: Bharat Abraham, Discharge: Date of : 45 Date of Service: 07/25/19 1738 Report #: [id number] THIS REPORT FOR: //name// [facility] ED Test Date: 2019-07-25 Test Time: 17:38:28 Pat Name: BREANA GALEAS Department: Room: [facility] Gender: F Survey Operations Director: TOM : 1945 Requested By: Elif Watson Order Number: [id number] MD: Richar Mora Measurements Intervals [place] Rate: 96 P: 64 NC: 138 QRS: 64 QRSD: 87 T: 66 QT: 341 QTc: 431 Interpretive Statements Sinus rhythm Compared to ECG 04/21/2019 16:25:12 T-wave abnormality no longer present Possible ischemia no longer present Electronically Signed On 07-26-2019 11:35:08 DIRECTOR TALENT by Richar Mora [email or web address] <ELECTRONICALLY SIGNED> By: Richar Mora MD, FAC 07/26/19 1135 1738 1738 Richar Mora MD, [facility] /EPI
--- NOTE | 2019-07-26 14:35 | NUR ---
Pt is A&O. Resides at home with dtr. Dtr assists with ADLs and completes IADLs. Pt states that she has difficulty bearing weight on her legs, so primarily uses her electric scooter. Pt also has a walker and cane that she can use for short distances. Pt wears home o2 continuously at 3.5L and has a trilogy, both through [employer]. Pt also has a hospital bed and a bedside commode. Hx of [facility]. Hx of [facility] and [facility], [place]. Pt unsure what she will need at dc, therapy evals pending. CM to assist with dc planning.
[2019-07-26 16:51] VITALS: BP 158/68
[2019-07-26 20:00] VITALS: BP 141/65
[2019-07-27 00:29] VITALS: BP 126/60
[2019-07-27 05:04] VITALS: BP 127/53
--- NOTE | 2019-07-27 05:06 | NUR ---
PT HAD C/O PAIN TO BACK, TREATED WITH PRN PAIN MEDICATION WITH PARTIAL RELIEF. EDUCATED PT ON THE IMPORTANCE OF CALLING FOR ASSISTANCE SHE IS A STAND BY ASSIST. PT REQUESTED MANY SNACKS THROUGH OUT THE NIGHT, ATTEMPTED TO EDUCATE ON HEALTHLY SNACKS HER BLOOD SUGARS HAVE BEEN ELEVATED. PT STILL WANTED ICE CREAM. CURRENTLY ASLEEP IN BED WITH BED ALARM ON AND CALL LIGHT WITHIN REACH.
--- NOTE | 2019-07-27 07:20 | NUR ---
CHANGE OF SHIFT BEDSIDE REPORT GIVEN PATIENT SEEN AT BEDSIDE, IN BED ASLEEP ASSUMED PATIENT CARE
[2019-07-27 07:46] LABS: URINE BILIRUBIN NEGATIVE (Negative); URINE BLOOD NEGATIVE (Negative); URINE CLARITY CLEAR; URINE COLOR YELLOW; URINE GLUCOSE-RANDOM 2+ (Negative); URINE KETONES NEGATIVE (Negative); URINE LEUKOCYTES-REFLEX NEGATIVE (Negative); URINE NITRITE-REFLEX NEGATIVE (Negative); URINE PROTEIN NEGATIVE (Negative); URINE UROBILINOGEN 0.2 E.U./dl (0.2-1.0)
[2019-07-27 08:00] VITALS: BP 146/79
[2019-07-27 09:41] LABS: ABSOLUTE LYMPHOCYTES 1.3 thou/uL (0.8-5.3); ABSOLUTE NEUTROPHILS 10.3 thou/uL (1.6-8.1); BASOPHILS 0.3 %; HEMATOCRIT 36.5 % (37.0-47.0); HEMOGLOBIN 11.5 gm/dL (12.0-15.0); LYMPHOCYTES 10.5 %; MCH 27.6 pg (26.0-34.0); MCHC 31.7 g/dL (28.0-37.0); MPV 7.6 fl. (7.2-11.1); NUCLEATED RBCS 0 /100WBC; PLATELET COUNT* 438 thou/uL (150-400); POLYS 81.2 %; RBC 4.19 mil/uL (4.20-5.00); RDW-CV 15.9 % (10.5-14.5); WBC 12.7 thou/uL (4.0-11.0)
[2019-07-27 09:43] LABS: CALCIUM 8.6 mg/dL (8.5-10.1); CREATININE 0.8 mg/dL (0.6-1.3)
[2019-07-27 11:44] VITALS: BP 138/76
[2019-07-27 20:00] VITALS: BP 155/79
[2019-07-28] VITALS: BP 133/73
[2019-07-28 04:01] VITALS: BP 150/77
--- NOTE | 2019-07-28 06:00 | NUR ---
PT HAS HAD C/O PAIN TO RIGHT KNEE, REQUIRED PRN PAIN MEDICATION. PT REQUESTED SNACKS THROUGH OUT THE NIGHT. PT IS CURRENTLY ASLEEP IN BED WITH BED ALARM ON AND CALL LIGHT WITHIN REACH.
[2019-07-28 07:30] VITALS: BP 155/82
[2019-07-28 12:00] VITALS: BP 166/84
[2019-07-28 13:40] LABS: ABSOLUTE LYMPHOCYTES 2.2 thou/uL (0.8-5.3); ABSOLUTE NEUTROPHILS 9.2 thou/uL (1.6-8.1); BASOPHILS 0.2 %; EOSINOPHILS 0.1 %; HEMATOCRIT 37.7 % (37.0-47.0); HEMOGLOBIN 12.4 gm/dL (12.0-15.0); LYMPHOCYTES 17.4 %; MCH 28.2 pg (26.0-34.0); MCHC 32.8 g/dL (28.0-37.0); MCV 86.2 fL (80.0-100.0); MPV 7.4 fl. (7.2-11.1); NUCLEATED RBCS 0 /100WBC; PLATELET COUNT* 498 thou/uL (150-400); POLYS 74.3 %; RBC 4.38 mil/uL (4.20-5.00); WBC 12.4 thou/uL (4.0-11.0)
[2019-07-28 13:45] LABS: CALCIUM 9.2 mg/dL (8.5-10.1); CREATININE 0.7 mg/dL (0.6-1.3); POTASSIUM 3.8 mmol/L (3.5-5.1)
[2019-07-28 15:39] VITALS: BP 154/81
--- NOTE | 2019-07-28 18:16 | NUR ---
ASSUMED PT CARE AT 0800, AOX4, UP SBA, O2 SAT 90'S 3.5L NC. TRACING SR/ST ON TELE. PT COMPLAINS OF KNEE PAIN. PAIN MEDS GIVEN. PT LOWER EXT EDEMA NOTED. PT LUNG COARSE/DIMINISHED. PT HAD FIRST PART OF STRESS TEST. PT NPO MIDNIGHT FOR SECOND PART OF STRESS TEST. PT ACCU CHECK. VSS, AM ASSESSMENT CHARTED, MEDS GIVEN PER MAR. CALL LIGHT WITHIN REACH, HOURLY ROUNDING, WILL CONTINUE TO MONITOR.
[2019-07-28 20:00] VITALS: BP 143/76
[2019-07-29 00:37] VITALS: BP 130/67
[2019-07-29 04:53] VITALS: BP 135/67
--- NOTE | 2019-07-29 05:09 | NUR ---
PT HAD C/O PAIN AT START OF SHIFT AND NOTED ANXIETY, TREATED WITH PRN MEDICATIONS. PT WAS ALREADY IN BED AT START OF SHIFT WHICH THIS PAST 2 HS SHIFTS SHE HAS BEEN UP TO BEDSIDE UNTIL AROUND 2200. HAS NOT BE CALLING OUT MUCH SHE HAS BEEN, SHE IS CURRENTLY ASLEEP IN BED WITH BED ALARM ON AND CALL LIGHT WITHIN REACH. NPO SINCE 0000.
[2019-07-29 08:00] VITALS: BP 143/63
[2019-07-29] MEDS ORDERED: PREDNISONE 10 M10 MG PO (09:56)
[2019-07-29 10:50] VITALS: BP 143/63
--- NOTE | 2019-07-29 14:51 | NUR ---
Pt will either dc today or tomorrow, H&P, facesheet and HH orders need to be faxed [facility] at [phone]
[2019-07-29 16:00] VITALS: BP 142/66
--- NOTE | 2019-07-29 17:33 | CARDNUC ---
[place] [address] CARDIAC NUCLEAR IMAGING REPORT Name: BREANA GALEAS Room: [address] IN [facility]#: [id number] Admission: 07/26/19 Attend Phys: Bharat Abraham, Discharge: Date of : 45 Date of Service: 07/29/19 1732 Report #: [id number] THIS REPORT FOR: cc: Ian Landaverde,Ian Woods,Jabier Kamara MD [facility] ~ APPROVED REPORT Imaging Protocol: Stress Tc-99m/Rest Tc-99m 1 day Study performed: 07/29/2019 11:13:58 Indication: Dyspnea Patient Location: In-Patient Room #: 215 Stress Tech: Dipti Morales Stress Nurse: Catherine Rendon RN Ht: 5 ft 2 in Wt: 221 lbs BSA: 1.99 m2 BMI: 40.41 Medical History Medical History: COPD, Hyperlipidemia, PVD, Diabetes Medications: xarelto, atorvastatin, carvedilol Allergies: robert inhibitors, arb, asa Cardiac Risk Factors: age, hyperlipidemia, pvd, dm former smoker Exercise History: Sedentary Meds Held (24 hrs): carvedilol Stress Test Details Stress Test: Pharmacologic stress testing performed using 0.4 mg of regadenoson per 5 mL given IV over 10 seconds. Reason for pharmacologic stress test: physical limitation. HR Max Heart Rate (APMHR): 147 bpm Resting HR: 82 bpm Target HR (85% APMHR): 124 bpm Max HR Achieved: 104 bpm % of APMHR: 70 Recovery HR: 100 bpm BP Resting BP: 122/60 mmHg Max BP: 104/50 mmHg Recovery BP: 147/68 [place] [address] CARDIAC NUCLEAR IMAGING REPORT Name: ADALBREANA Nestor Room: [address]#: [id number] Admission: 07/26/19 Attend Phys: Bharat Abraham, Discharge: Date of : 45 Date of Service: 07/29/19 1732 Report #: [id number] ECG Resting ECG: Sinus Rhythm Stress ECG: Sinus Tachycardia ST Change: None Arrhythmia: None Recovery ECG: Sinus Rhythm Recovery ST Change: None Recovery Arrhythmia: None Clinical Reason for Termination: Completed protocol Exercise duration: 0 min sec Exercise capacity: 1 METs The patient tolerated Lexiscan infusion without significant cardiac symptoms. Nurse Comments pt too weak and unsteady on feet to walk on treadmill Stress ECG Conclusion The baseline 12-lead EKG shows sinus rhythm with no significant ST segment or T-wave abnormalities. EKGs obtained during and post skin. Show sinus rhythm and sinus tachycardia with no significant ST segment or T wave changes when compared to baseline. There were no stress-induced arrhythmias. Study Quality Study: Good Artifact: Mild Diaphragmatic artifact Study Data At rest, the left ventricular ejection fraction was 73%.. Post stress, the left ventricular ejection was 85%.. TID = 0.82. Perfusion Mild photopenia of the inferior wall that is not significantly different on stress than rest images. Gated study showed normal wall motion in this region suggesting diaphragmatic attenuation artifact. No other significant fixed or reversible defects were identified. Wall Motion Normal left ventricular wall [place] [address] CARDIAC NUCLEAR IMAGING REPORT Name: BREANA GALEAS Nestor Room: [address] [place] ..#: [id number] Admission: 07/26/19 Attend Phys: Bharat Abraham, Discharge: Date of : 45 Date of Service: 07/29/19 1732 Report #: [id number] ECG Findings: negative for ischemia Clinical Findings: negative for ischemia Nuclear Findings: negative for ischemia Exercise Capacity: not assessed Left Ventricular Function: normal Risk Study: low Perfusion images show no defect to suggest ischemia. Left ventricular systolic function is normal on gated studies. This is a low risk study. <Conclusion> The baseline 12-lead EKG shows sinus rhythm with no significant ST segment or T-wave abnormalities. EKGs obtained during and post skin. Show sinus rhythm and sinus tachycardia with no significant ST segment or T wave changes when compared to baseline. There were no stress-induced arrhythmias. <ELECTRONICALLY SIGNED> By: Jabier Nassar MD, FACC 07/29/19 173 31 31 Jabier Nassar MD, FACC /INF
--- NOTE | 2019-07-29 18:25 | NUR ---
ASSUMED PT CARE AT 0800, AOX4, UP WITH ASSSIST O2 SAT 90'S 3.5L NC. PT COMPLAINS OF KNEE PAIN. PAIN MEDS GIVEN ORDERED. PT HAD STRESS TEST. PT HAS ORDERED FOR DISCHARGE. PT STATE SHES NOT READY TO GO HOME. PT BLOOD SUGAR 475. SLIDING SCALE INSULIN GIVEN. NOTIFIED. PT NON COMPLIANT WITH DIET. AM ASSESSMENT CHARTED. MEDS GIVEN PER MAR. CALL LIGHT WITHIN REACH, WILL CONTINUE TO MONITOR.
[2019-07-29 20:10] VITALS: BP 113/72
[2019-07-30] VITALS: BP 117/63
[2019-07-30 03:30] VITALS: BP 127/67
--- NOTE | 2019-07-30 06:01 | NUR ---
PT CARE ASSUMED AT 1930. SAT MAINTAINED IN O2. ALERT AND ORIENTED X4. CALL LIGHT WITHIN REACH AND BED IN LOW POSITION. C/O PAIN, MEDICATION GIVEN PER EMAR. HOURLY ROUNDING DONE FOR PT SAFETY.
[2019-07-30 08:30] VITALS: BP 173/85
[2019-07-30 12:49] VITALS: BP 126/63
[2019-07-30] MEDS ORDERED: CARVEDILOL3.125 MG PO (13:46)
[2019-07-30] MEDS ORDERED: CEFDINIR300 MG PO (13:46)
[2019-07-30] MEDS ORDERED: SPIRIVA18 MCG INH ×2 (13:47→15:28)
[2019-07-30] MEDS ORDERED: PROTONIX40 M2 PO (15:24)
[2019-07-30] MEDS ORDERED: SYMBICORT160 MCG/4. INH (15:30)
[2019-07-30 15:53] VITALS: BP 143/63
--- NOTE | 2019-07-30 16:50 | NUR ---
ASSUSMED CARE OF PT APPROX 0730. REASSESSMENT COMPLETED CHARTED. MEDICATIONS GIVEN CHARTED. PT WORKED WITH THERAPY THIS AM, THERAPY REPORTED PT DID WELL WITH AMBULATING TO THE BATHROOM. PT WALKED WITH STAFF TO HALLWAY AND BACK TO ROOM. PT UP TO BEDSIDE CHAIR. PTS FAMILY CALLED THIS AFTERNOON ABOUT PTS DISCHARGE. FAMILY STATED THEY DID NOT HAVE OXYGEN FOR PT TO GO HOME ON BECAUSE HOME 02 WAS MISPLACED. IT WAS RECOMMENDED FOR THE FAMILY TO CONTACT THE HOME OXYGEN COMPANY FOR REPLACEMENT OF PORTABLE HOME O2. FAMILY HAD HOME PORTABLE O2 AT TIME OF DISCHARGE. DISCHARGE TEACHING COMPLETED WITH FAMILY AND PT. PT VERBALIZED UNDERSTANDING OF DC INSTRUCTIONS. PT WAS TOLD THAT STAFF WOULD ACCOMPANY THEM TO THEIR VEHICLE. WHEN STAFF RETURNED TO PTS ROOM TO ACCOMPANY TO VEHICLE PT WAS ALREADY GONE.
== END 2019-07-30 16:40 | disposition home health service (06) | DRG 871 ==
LOC: M.ERS 17:19 → M.TBA-ER 17:52 → M.2W 17:52
PROVIDERS: Internal Medicine; Personal Emergency Response Attendant; ADMIT Internal Medicine
PROC: 5A09357 Assistance with Respiratory Ventilation, Less than 24 Consecutive Hours, Continuous Positive Airway Pressure (ICD-10-PCS; principal; 2019-07-25)
PROC: 5A09357 Assistance with Respiratory Ventilation, Less than 24 Consecutive Hours, Continuous Positive Airway Pressure (ICD-10-PCS; 2019-07-29)
PROC: 5A09357 Assistance with Respiratory Ventilation, Less than 24 Consecutive Hours, Continuous Positive Airway Pressure (ICD-10-PCS; 2019-07-30)
DX: A41.9 Sepsis, unspecified organism (principal); J18.9 Pneumonia, unspecified organism; J96.21 Acute and chronic respiratory failure with hypoxia; I50.33 Acute on chronic diastolic (congestive) heart failure; J44.0 Chronic obstructive pulmonary disease with (acute) lower respiratory infection; J44.1 Chronic obstructive pulmonary disease with (acute) exacerbation; E87.2 Acidosis; D68.59 Other primary thrombophilia; Z68.41 Body mass index [BMI] 40.0-44.9, adult; Z96.653 Presence of artificial knee joint, bilateral; I11.0 Hypertensive heart disease with heart failure; F41.9 Anxiety disorder, unspecified; E78.5 Hyperlipidemia, unspecified; E03.9 Hypothyroidism, unspecified; E66.01 Morbid (severe) obesity due to excess calories; G47.33 Obstructive sleep apnea (adult) (pediatric); E11.65 Type 2 diabetes mellitus with hyperglycemia; E11.40 Type 2 diabetes mellitus with diabetic neuropathy, unspecified; Z86.718 Personal history of other venous thrombosis and embolism; Z79.4 Long term (current) use of insulin; Z79.899 Other long term (current) drug therapy; Z99.81 Dependence on supplemental oxygen; Z79.01 Long term (current) use of anticoagulants; Z79.51 Long term (current) use of inhaled steroids; Z88.8 Allergy status to other drugs, medicaments and biological substances; Z87.891 Personal history of nicotine dependence; Z83.6 Family history of other diseases of the respiratory system; Z79.2 Long term (current) use of antibiotics; Z90.710 Acquired absence of both cervix and uterus; Z90.49 Acquired absence of other specified parts of digestive tract; Z90.722 Acquired absence of ovaries, bilateral

== ENCOUNTER 2020-04-05 16:27 | Inpatient (IN) | payer OTHER, MEDICARE, MEDICAID ==
[~2020-04-05] VITALS: Ht 160 cm; Wt 83.0 kg
[~2020-04-05 16:27] MED LIST changes: +BUMETANIDE 1 MG1 M1 PO; +CARVEDILOL3.125 MG PO; +PROTONIX40 M2 PO; +SPIRIVA18 MCG INH
[2020-04-05 17:05] LABS: ABSOLUTE BASOPHILS 0.1 thou/uL (0.0-0.2); ABSOLUTE EOSINOPHILS 0.2 thou/uL (0.0-0.7); ABSOLUTE LYMPHOCYTES 4.2 thou/uL (0.8-5.3); ABSOLUTE MONOCYTES 1.2 thou/uL (0.0-1.2); ABSOLUTE NEUTROPHILS 7.7 thou/uL (1.6-8.1); BASOPHILS 1.1 %; EOSINOPHILS 1.3 %; HEMATOCRIT 41.8 % (37.0-47.0); HEMOGLOBIN 13.5 gm/dL (12.0-15.0); LYMPHOCYTES 31.7 %; MCH 28.4 pg (26.0-34.0); MCHC 32.2 g/dL (28.0-37.0); MCV 88.1 fL (80.0-100.0); MONOCYTES 8.7 %; MPV 7.1 fl. (7.2-11.1); NUCLEATED RBCS 0 /100WBC; PLATELET COUNT* 392 thou/uL (150-400); POLYS 57.2 %; RBC 4.75 mil/uL (4.20-5.00); RDW-CV 14.4 % (10.5-14.5); WBC 13.4 thou/uL (4.0-11.0)
[2020-04-05 17:17] LABS: CALCIUM 9.2 mg/dL (8.5-10.1); CREATININE 0.6 mg/dL (0.6-1.3)
[2020-04-05 17:20] LABS: APTT 24.3 Seconds (25.0-31.3)
[2020-04-05 17:26] LABS: BE 0 mmol/L (-2 to +3); PCO2 48.8 mmHg (35.0-45.0); pH 7.348 (7.340-7.450)
[2020-04-05 17:27] LABS: ALBUMIN 3.6 g/dL (3.4-5.0); MAGNESIUM 2.1 mg/dL (1.8-2.4); TOTAL BILIRUBIN 0.4 mg/dL (<0.1-1.0); TOTAL PROTEIN 7.8 g/dL (6.4-8.2)
[2020-04-05 17:29] LABS: PO2 249.7 mmHg (75.0-100.0)
[2020-04-05 22:20] VITALS: BP 134/75
[2020-04-05 22:45] VITALS: BP 140/73
[2020-04-06] MEDS ORDERED: LORCET 5-325 M1 EACH PO (00:21)
[2020-04-06 08:00] VITALS: BP 142/77
--- NOTE | 2020-04-06 09:48 | EKG ---
[place] [address] ELECTROCARDIOGRAM REPORT Name: BREANA GALEAS Room: [address] ADM IN .R.#: [id number] Admission: 04/05/20 Attend Phys: Ian Landaverde Discharge: Date of : 45 Date of Service: 04/05/20 1637 Report #: [id number] THIS REPORT FOR: //name// [facility] ED Test Date: 2020-04-05 Test Time: 16:37:29 Pat Name: BREANA GALEAS Department: Room: [facility] Gender: F Legal Recovery Specialist: JULIO : 1945 Requested By: Mark Zabala Order Number: [id number] MD: Richar Mora Measurements Intervals [place] Rate: 109 P: 81 SC: 161 QRS: 82 QRSD: 83 T: 83 QT: 338 QTc: 456 Interpretive Statements Sinus tachycardia Consider right atrial enlargement Borderline right axis deviation Nonspecific T abnormalities, lateral leads Baseline wander in lead(s) V3,V4 Compared to ECG 07/25/2019 17:38:28 T-wave abnormality now present Sinus rate has increased Electronically Signed On 04-06-2020 9:47:48 CDT by Richar Mora [email or web address] <ELECTRONICALLY SIGNED> By: Richar Mora MD, FACC 04/06/20 0947 1637 1637 Richar Mora MD, FAC /EPI
[2020-04-06 10:17] LABS: MAGNESIUM 2.1 mg/dL (1.8-2.4); PHOSPHORUS* 3.9 mg/dL (2.5-4.9)
[2020-04-06 12:08] VITALS: BP 148/73
[2020-04-06 16:15] VITALS: BP 160/80
[2020-04-06 20:24] VITALS: BP 144/73
[2020-04-07] VITALS: BP 132/67
[2020-04-07 04:00] VITALS: BP 142/76
[2020-04-07 04:58] LABS: HEMATOCRIT 37.5 % (37.0-47.0); HEMOGLOBIN 11.9 gm/dL (12.0-15.0); MCH 27.7 pg (26.0-34.0); MCHC 31.8 g/dL (28.0-37.0); MCV 87.1 fL (80.0-100.0); MPV 7.4 fl. (7.2-11.1); NUCLEATED RBCS 0 /100WBC; PLATELET COUNT* 369 thou/uL (150-400); RDW-CV 14.3 % (10.5-14.5); WBC 10.1 thou/uL (4.0-11.0)
[2020-04-07 05:46] LABS: ALBUMIN 3.2 g/dL (3.4-5.0); CALCIUM 8.9 mg/dL (8.5-10.1); CREATININE 0.8 mg/dL (0.6-1.3); MAGNESIUM 2.2 mg/dL (1.8-2.4); POTASSIUM 4.5 mmol/L (3.5-5.1); TOTAL BILIRUBIN 0.2 mg/dL (<0.1-1.0)
[2020-04-07 06:38] LABS: BE 3.5 mmol/L (-2 to +3); PO2 79.2 mmHg (75.0-100.0); pH 7.407 (7.340-7.450)
[2020-04-07 07:38] LABS: ABSOLUTE LYMPHOCYTES 0.6 thou/uL (0.8-5.3); ABSOLUTE MONOCYTES 0.2 thou/uL (0.0-1.2); ABSOLUTE NEUTROPHILS 9.3 thou/uL (1.6-8.1); ANISOCYTOSIS 1+; PLATELET ESTIMATE ADEQUATE; POIKILOCYTOSIS 1+
[2020-04-07 11:48] VITALS: BP 144/72
[2020-04-07 15:55] VITALS: BP 124/46
[2020-04-07 20:00] VITALS: BP 136/74
[2020-04-08] VITALS: BP 107/52
[2020-04-08 04:00] VITALS: BP 135/76
[2020-04-08 05:27] LABS: ABSOLUTE LYMPHOCYTES 0.7 thou/uL (0.8-5.3); ABSOLUTE MONOCYTES 0.4 thou/uL (0.0-1.2); ABSOLUTE NEUTROPHILS 10.6 thou/uL (1.6-8.1); BASOPHILS 0.1 %; HEMATOCRIT 37.7 % (37.0-47.0); HEMOGLOBIN 12.1 gm/dL (12.0-15.0); LYMPHOCYTES 5.9 %; MCH 27.8 pg (26.0-34.0); MCV 86.8 fL (80.0-100.0); MONOCYTES 3.8 %; MPV 7.5 fl. (7.2-11.1); NUCLEATED RBCS 0 /100WBC; PLATELET COUNT* 383 thou/uL (150-400); POLYS 90.2 %; RBC 4.34 mil/uL (4.20-5.00); RDW-CV 14.6 % (10.5-14.5); WBC 11.7 thou/uL (4.0-11.0)
[2020-04-08 12:00] VITALS: BP 142/90
[2020-04-08 20:00] VITALS: BP 151/75
[2020-04-09 00:04] VITALS: BP 156/80
[2020-04-09 04:00] VITALS: BP 144/70
[2020-04-09 05:15] LABS: HEMATOCRIT 37.7 % (37.0-47.0); MCH 27.8 pg (26.0-34.0); MCHC 31.7 g/dL (28.0-37.0); MCV 87.5 fL (80.0-100.0); MPV 7.2 fl. (7.2-11.1); RBC 4.31 mil/uL (4.20-5.00); RDW-CV 14.6 % (10.5-14.5); WBC 11.5 thou/uL (4.0-11.0)
[2020-04-09 06:18] LABS: ALBUMIN 2.9 g/dL (3.4-5.0); CALCIUM 8.7 mg/dL (8.5-10.1); MAGNESIUM 2.2 mg/dL (1.8-2.4); POTASSIUM 3.4 mmol/L (3.5-5.1); TOTAL BILIRUBIN 0.2 mg/dL (<0.1-1.0); TOTAL PROTEIN 6.5 g/dL (6.4-8.2)
[2020-04-09 08:00] VITALS: BP 119/56
[2020-04-09 14:34] VITALS: BP 135/55
[2020-04-10] VITALS: BP 151/66
[2020-04-10] MEDS ORDERED: PREDNISONE 10 M10 MG PO (07:53)
[2020-04-10 08:00] VITALS: BP 134/72
[2020-04-10 09:44] VITALS: BP 158/70
[2020-04-10 11:05] VITALS: BP 158/70
[2020-04-10 11:10] VITALS: BP 158/70
[2020-04-10 11:28] VITALS: BP 158/70
[2020-04-10 11:43] LABS: CALCIUM 8.5 mg/dL (8.5-10.1); CREATININE 0.9 mg/dL (0.6-1.3); POTASSIUM 4.2 mmol/L (3.5-5.1)
--- NOTE | 2020-04-11 12:58 | CON ---
[address] [address] CONSULTATION Name: BREANA GALEAS Room: [address] IN .R.#: [id number] Admission: 04/05/20 Attend Phys: John Zambrano Discharge: 04/10/20 Date of : 45 Report #: [id number] THIS REPORT FOR: //name// cc: Abraham Crawford MD, Bruce D. MD ~ DATE OF SERVICE: 04/06/2020 REQUESTING PHYSICIAN: Ian Landaverde DO INDICATION FOR CONSULTATION: Mshqy-xc-jhmwogc hypoxemic respiratory failure. HISTORY OF PRESENT ILLNESS: A 74-year-old female with past medical history includes a history of oxygen-dependent COPD. The patient also uses a CPAP for obstructive sleep apnea at night and does have congestive heart failure, chronic systolic as well and reports that she has had DVTs in the past. At this time, the patient was admitted yesterday, presentation was with increasing shortness of breath. She has had a cough with some thick white sputum. There is swelling of lower extremities as well. The patient does not describe a significant increase in her cough or swelling of lower extremities and said that these are longstanding. The primary reason she came to the hospital was significant increase in shortness of breath. She denies having had any upper respiratory complaints with the exception of a minor clear nasal discharge. She does not have any fever or chills. She does have chronic low back pain. She has a longstanding history of disturbed sleep at night as well as sleepiness during the day. Since yesterday, the patient has been treated with corticosteroids as well as bronchodilators. She also has been on ceftriaxone. She does report shortness of breath at rest still, but reports that this is better than yesterday. The patient answers to the negative for 12 questions for review of systems except as mentioned above. PAST MEDICAL HISTORY: COPD; chronic systolic congestive heart failure; hypertension; diabetes; 2 episodes of DVT, the patient currently is not on anticoagulation; morbid obesity; hypothyroidism and knee and ankle surgery. The patient's last available echocardiogram is from last year and shows a left ventricular ejection fraction decreased to 35-40% with a pulmonary artery systolic pressure 32. SOCIAL HISTORY: There is an extensive history of smoking more than 50 pack years. She says she discontinued between 5 and 10 years ago. No known history of heavy alcohol use or illegal drug use. CURRENT MEDICATIONS: [place] [address] CONSULTATION Name: BREANA GALEAS Room: [address]#: [id number] Admission: 04/05/20 Attend Phys: John Zambrano Discharge: 04/10/20 Date of : 45 Report #: [id number] HOME MEDICATIONS: List also in [facility] reviewed. FAMILY HISTORY: Hypertension, gallbladder disease. ALLERGIES: LATOSHA INHIBITORS AND ANGIOTENSIN RECEPTOR ANTAGONIST AND ASPIRIN. PHYSICAL EXAMINATION: GENERAL: She is alert, awake and oriented, sitting comfortably on the side of the bed. VITAL SIGNS: Has a pulse of 93 and a blood pressure of 160/80. She is saturating 96%. Her respiratory rate is mildly elevated to 22. She is afebrile with a temperature of 36.6. HEENT: Head is normocephalic and atraumatic. Pupils are equal and reactive. There is no throat erythema. She has a narrow airway. NECK: Does not show raised JVP, asymmetry, mass or lymph nodes. CHEST: Symmetrical expansion on inspection and palpation. On auscultation, breath sounds are bilaterally equal, but decreased. I do not hear any added sounds. HEART: Regular. There is no murmur. ABDOMEN: Soft and nontender. EXTREMITIES: Lower extremities showed 2-3+ edema bilaterally. There are significant skin changes noted. There is mild calf tenderness as well bilaterally. SKIN: However, is dry and intact. NEUROLOGICAL: Moves all extremities bilaterally equally and spontaneously with no focal deficit identified. The patient was quite pointing to her lower back and there is some tenderness noted in the lower lumbar and sacral region. LABORATORY DATA: The patient's chest x-ray from yesterday shows chronic changes. No large infiltrates or pulmonary vascular congestion identified. There is area of the radiopaque density at the left lung base, which could be an area of atelectasis as well as a small infiltrate. It is more likely atelectasis. The patient's lab work is in [facility] and this is reviewed. Arterial blood gas consistent with chronic component of hypercarbia in addition to acute in [facility] reviewed. ASSESSMENT AND PLAN: 1. Jesnf-jz-yxqasks hypoxemic and hypercarbic respiratory failure. The patient is on a CPAP at home. At this time, she is on our BiPAP. I would recommend continuing with the BiPAP. The patient may benefit from a repeat sleep study for evaluation regarding switching her over to a BiPAP at home long-term. 2. Chronic obstructive pulmonary disease exacerbation. Agree with Solu-Medrol as well as nebulized bronchodilators as currently prescribed. At this point, I will go ahead and start tapering down the steroid dose. The opacity at the left lung base is more likely atelectasis; however, an infiltrate cannot be completely ruled out. Therefore, I agree with treating with ceftriaxone as [address] [place] [address] CONSULTATION Name: BREANA GALEAS Room: [address] IN .R.#: [id number] Admission: 04/05/20 Attend Phys: John Zambrano Discharge: 04/10/20 Date of : 45 Report #: [id number] currently prescribed as well. 3. Chronic systolic congestive heart failure. The patient does appear to be fluid overloaded. It is possible there is an acute component of this as well. However, the patient is not fully aware. I would like to diurese her. I ordered 1 dose of Lasix. Recommend repeating labs in the morning. If BUN and creatinine remain within normal range, then consider giving her more Lasix tomorrow. 4. Edema/chronic venous skin changes/history of deep venous thrombosis x 2. I went ahead and obtained venous Dopplers, these are negative. I have ordered a D-dimer for tomorrow morning. If the D-dimer is elevated, then may consider obtaining a CTA chest. 5. Deep venous thrombosis prophylaxis, Lovenox. 6. Clostridium difficile prophylaxis, Florastor. <ELECTRONICALLY SIGNED> By: Kannan Traylor MD 04/11/20 1258 [id number] Traylor MD /nt
== END 2020-04-10 15:33 | disposition home health service (06) | DRG 177 ==
LOC: M.ERS 16:27 → M.2W 17:19 → M.TBA-ER 17:19 → M.2W 22:35 → M.ORTHSURG 04-10 09:22
PROVIDERS: Family Medicine; Internal Medicine; Internal Medicine Critical Care Medicine; Pediatrics; ADMIT Internal Medicine; ATTEND Internal Medicine
PROC: 5A09357 Assistance with Respiratory Ventilation, Less than 24 Consecutive Hours, Continuous Positive Airway Pressure (ICD-10-PCS; principal; 2020-04-05)
PROC: 5A09357 Assistance with Respiratory Ventilation, Less than 24 Consecutive Hours, Continuous Positive Airway Pressure (ICD-10-PCS; 2020-04-06)
PROC: 5A09357 Assistance with Respiratory Ventilation, Less than 24 Consecutive Hours, Continuous Positive Airway Pressure (ICD-10-PCS; 2020-04-07)
PROC: 5A09357 Assistance with Respiratory Ventilation, Less than 24 Consecutive Hours, Continuous Positive Airway Pressure (ICD-10-PCS; 2020-04-08)
PROC: 5A09357 Assistance with Respiratory Ventilation, Less than 24 Consecutive Hours, Continuous Positive Airway Pressure (ICD-10-PCS; 2020-04-10)
DX: J15.6 Pneumonia due to other Gram-negative bacteria (principal); J96.21 Acute and chronic respiratory failure with hypoxia; J96.22 Acute and chronic respiratory failure with hypercapnia; J44.0 Chronic obstructive pulmonary disease with (acute) lower respiratory infection; J44.1 Chronic obstructive pulmonary disease with (acute) exacerbation; I50.22 Chronic systolic (congestive) heart failure; R65.10 Systemic inflammatory response syndrome (SIRS) of non-infectious origin without acute organ dysfunction; I11.0 Hypertensive heart disease with heart failure; G89.29 Other chronic pain; E11.9 Type 2 diabetes mellitus without complications; M54.5 Low back pain; E03.9 Hypothyroidism, unspecified; G47.33 Obstructive sleep apnea (adult) (pediatric); Z96.653 Presence of artificial knee joint, bilateral; Z20.828 Contact with and (suspected) exposure to other viral communicable diseases; Z86.718 Personal history of other venous thrombosis and embolism; Z79.4 Long term (current) use of insulin; Z79.899 Other long term (current) drug therapy; Z88.8 Allergy status to other drugs, medicaments and biological substances; Z87.891 Personal history of nicotine dependence; Z99.81 Dependence on supplemental oxygen

== ENCOUNTER 2020-05-10 14:47 | Inpatient (IN) | payer OTHER, MEDICARE, MEDICAID ==
[~2020-05-10] VITALS: Ht 157.5 cm; Wt 94.6 kg
[~2020-05-10 14:47] MED LIST changes: +LORCET 5-325 M1 EACH PO
[2020-05-10 14:51] VITALS: BP 170/86
[2020-05-10 15:21] LABS: ABSOLUTE BASOPHILS 0.1 thou/uL (0.0-0.2); ABSOLUTE EOSINOPHILS 0.1 thou/uL (0.0-0.7); ABSOLUTE MONOCYTES 1.1 thou/uL (0.0-1.2); ABSOLUTE NEUTROPHILS 4.1 thou/uL (1.6-8.1); BASOPHILS 0.9 %; EOSINOPHILS 1.3 %; HEMATOCRIT 39.8 % (37.0-47.0); HEMOGLOBIN 12.8 gm/dL (12.0-15.0); LYMPHOCYTES 42.4 %; MCH 28.3 pg (26.0-34.0); MCHC 32.1 g/dL (28.0-37.0); MONOCYTES 11.8 %; NUCLEATED RBCS 0 /100WBC; PLATELET COUNT* 398 thou/uL (150-400); POLYS 43.6 %; RBC 4.52 mil/uL (4.20-5.00); RDW-CV 14.4 % (10.5-14.5); WBC 9.4 thou/uL (4.0-11.0)
[2020-05-10 15:35] LABS: APTT 24.3 Seconds (25.0-31.3); INR 0.9; PROTIME 10.1 Seconds (9.20-11.50)
[2020-05-10 15:36] LABS: BE 3.2 mmol/L (-2 to +3); pH 7.368 (7.340-7.450)
[2020-05-10 15:37] LABS: PCO2 52.6 mmHg (35.0-45.0); PO2 129.3 mmHg (75.0-100.0)
[2020-05-10 15:44] LABS: ALBUMIN 3.4 g/dL (3.4-5.0); CALCIUM 8.5 mg/dL (8.5-10.1); CREATININE 0.5 mg/dL (0.6-1.3); TOTAL BILIRUBIN 0.4 mg/dL (<0.1-1.0); TOTAL PROTEIN 7.4 g/dL (6.4-8.2)
[2020-05-10 15:46] LABS: POTASSIUM 2.7 mmol/L (3.5-5.1)
[2020-05-10 20:00] VITALS: BP 161/88
[2020-05-10 21:22] VITALS: BP 139/70
[2020-05-11] VITALS: BP 125/68
[2020-05-11 04:00] VITALS: BP 116/79
[2020-05-11 06:39] LABS: CALCIUM 8.1 mg/dL (8.5-10.1); CREATININE 0.7 mg/dL (0.6-1.3); MAGNESIUM 2.2 mg/dL (1.8-2.4); POTASSIUM 4.4 mmol/L (3.5-5.1)
[2020-05-11 08:40] VITALS: BP 142/61
[2020-05-11 17:20] VITALS: BP 139/61
--- NOTE | 2020-05-11 17:59 | EKG ---
[place] [address] ELECTROCARDIOGRAM REPORT Name: BREANA GALEAS Room: [address] ADM IN .R.#: [id number] Admission: 05/11/20 Attend Phys: Shine Hunter, Discharge: Date of : 45 Date of Service: 05/10/20 1455 Report #: [id number] THIS REPORT FOR: //name// [facility] ED Test Date: 2020-05-10 Test Time: 14:55:49 Pat Name: BREANA GALEAS Department: Room: [facility] Gender: F Offshore Wind Operations Manager: RANDALL : 1945 Requested By: Leon Galeana Order Number: [id number] MD: Jabier Nassar Measurements Intervals [place] Rate: 94 P: 73 UT: 153 QRS: 72 QRSD: 95 T: 62 QT: 366 QTc: 458 Interpretive Statements Sinus rhythm Baseline wander in lead(s) V1 Compared to ECG 04/05/2020 16:37:29 Sinus tachycardia no longer present T-wave abnormality no longer present Electronically Signed On 05-11-2020 17:59:16 V BELT FINISHER by Jabier Nassar [email or web address] <ELECTRONICALLY SIGNED> By: Jabier Nassar MD, FACC 05/11/20 1759 1455 1455 Jabier Nassar MD, FAC /EPI
[2020-05-11 19:48] VITALS: BP 133/58
[2020-05-12 08:09] VITALS: BP 142/73
[2020-05-12 16:05] VITALS: BP 144/63
[2020-05-12 19:50] VITALS: BP 137/68
[2020-05-13 07:45] VITALS: BP 142/67
[2020-05-13 16:40] VITALS: BP 132/84
[2020-05-13 20:00] VITALS: BP 165/77
[2020-05-14 05:05] LABS: HEMOGLOBIN 11.2 gm/dL (12.0-15.0); MCH 28.3 pg (26.0-34.0); MCV 88.5 fL (80.0-100.0); MPV 7.2 fl. (7.2-11.1); RBC 3.95 mil/uL (4.20-5.00); RDW-CV 15.1 % (10.5-14.5); WBC 11.2 thou/uL (4.0-11.0)
[2020-05-14 05:25] LABS: CALCIUM 8.4 mg/dL (8.5-10.1); CREATININE 0.9 mg/dL (0.6-1.3); MAGNESIUM 2.4 mg/dL (1.8-2.4); POTASSIUM 3.9 mmol/L (3.5-5.1)
[2020-05-14 07:20] VITALS: BP 158/87
[2020-05-14 16:12] VITALS: BP 137/69
[2020-05-14 20:30] VITALS: BP 141/61
[2020-05-15 07:10] VITALS: BP 149/63
[2020-05-15] MEDS ORDERED: VOLTAREN GEL 1100 G1 TOP (07:33)
[2020-05-15] MEDS ORDERED: ALPRAZOLAM0.5 M2 PO (07:33)
[2020-05-15] MEDS ORDERED: LEVOFLOXACIN500 MG PO (07:33)
[2020-05-15] MEDS ORDERED: NORCO 10-325 T1 EACH PO (07:33)
[2020-05-15] MEDS ORDERED: PREDNISONE 10 M10 MG PO (07:34)
[2020-05-15] MEDS ORDERED: HUMALOG100 UNIT/1 SUBQ (07:34)
[2020-05-15 15:39] VITALS: BP 116/61
== END 2020-05-15 17:39 | DRG 871 ==
LOC: M.ERS 14:47 → M.TBA-ER 17:27 → M.3W 20:11
PROVIDERS: Emergency Medicine; ADMIT Internal Medicine; ATTEND Internal Medicine
PROC: 5A0935A Assistance with Respiratory Ventilation, Less than 24 Consecutive Hours, High Flow/Velocity Cannula (ICD-10-PCS; principal; 2020-05-11)
PROC: 5A0935A Assistance with Respiratory Ventilation, Less than 24 Consecutive Hours, High Flow/Velocity Cannula (ICD-10-PCS; 2020-05-14)
DX: A41.89 Other specified sepsis (principal); J96.22 Acute and chronic respiratory failure with hypercapnia; R53.2 Functional quadriplegia; J96.21 Acute and chronic respiratory failure with hypoxia; J44.1 Chronic obstructive pulmonary disease with (acute) exacerbation; I50.22 Chronic systolic (congestive) heart failure; J44.0 Chronic obstructive pulmonary disease with (acute) lower respiratory infection; D68.59 Other primary thrombophilia; J20.9 Acute bronchitis, unspecified; J84.10 Pulmonary fibrosis, unspecified; I11.0 Hypertensive heart disease with heart failure; G89.29 Other chronic pain; E87.6 Hypokalemia; E66.9 Obesity, unspecified; E11.9 Type 2 diabetes mellitus without complications; E03.9 Hypothyroidism, unspecified; M17.11 Unilateral primary osteoarthritis, right knee; Z20.828 Contact with and (suspected) exposure to other viral communicable diseases; Z86.718 Personal history of other venous thrombosis and embolism; Z68.38 Body mass index [BMI] 38.0-38.9, adult; Z79.4 Long term (current) use of insulin; Z79.899 Other long term (current) drug therapy; Z88.8 Allergy status to other drugs, medicaments and biological substances

== ENCOUNTER 2020-05-28 11:15 | Inpatient (IN) | payer OTHER, MEDICARE, MEDICAID ==
[~2020-05-28] VITALS: Ht 160 cm; Wt 100.2 kg
[2020-05-28 11:15] VITALS: BP 169/74
[~2020-05-28 11:15] MED LIST changes: +LEVOFLOXACIN500 MG PO; +NORCO 10-325 T1 EACH PO; +VOLTAREN GEL 1100 G1 TOP
[2020-05-28 12:01] LABS: ABSOLUTE BASOPHILS 0.1 thou/uL (0.0-0.2); ABSOLUTE EOSINOPHILS 0.1 thou/uL (0.0-0.7); ABSOLUTE MONOCYTES 0.9 thou/uL (0.0-1.2); ABSOLUTE NEUTROPHILS 7.9 thou/uL (1.6-8.1); BASOPHILS 1.1 %; HEMATOCRIT 33.6 % (37.0-47.0); HEMOGLOBIN 10.8 gm/dL (12.0-15.0); LYMPHOCYTES 10.1 %; MCH 28.4 pg (26.0-34.0); MCHC 32.1 g/dL (28.0-37.0); MCV 88.4 fL (80.0-100.0); MONOCYTES 9.2 %; MPV 7.3 fl. (7.2-11.1); NUCLEATED RBCS 0 /100WBC; PLATELET COUNT* 259 thou/uL (150-400); POLYS 78.6 %; RDW-CV 15.7 % (10.5-14.5)
[2020-05-28 12:06] LABS: CALCIUM 8.1 mg/dL (8.5-10.1); CREATININE 0.5 mg/dL (0.6-1.3)
[2020-05-28 12:09] LABS: APTT 23.9 Seconds (25.0-31.3); PROTIME 10.8 Seconds (9.20-11.50)
[2020-05-28 12:17] LABS: ALBUMIN 2.6 g/dL (3.4-5.0); TOTAL BILIRUBIN 0.6 mg/dL (<0.1-1.0)
[2020-05-28 13:45] LABS: PO2 105.9 mmHg (75.0-100.0); pH 7.417 (7.340-7.450)
[2020-05-28 13:46] LABS: PCO2 50.1 mmHg (35.0-45.0)
[2020-05-28 14:05] LABS: CALCIUM 8.4 mg/dL (8.5-10.1); CREATININE 0.5 mg/dL (0.6-1.3); POTASSIUM 3.3 mmol/L (3.5-5.1)
[2020-05-28 14:08] LABS: MAGNESIUM 2.1 mg/dL (1.8-2.4); PHOSPHORUS* 2.5 mg/dL (2.5-4.9)
--- NOTE | 2020-05-28 15:53 | EKG ---
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 Supervisor: TOM : 1945 Requested By: Mira Taylor Order Number: [id number] MD: Morgan Lima Measurements Intervals [place] Rate: 95 P: 72 OR: 145 QRS: 62 QRSD: 86 T: 65 QT: 340 QTc: 428 Interpretive Statements Sinus tachycardia Atrial premature complexes in couplets Compared to ECG 05/10/2020 14:55:49 Atrial premature complex(es) now present Sinus rhythm no longer present Electronically Signed On 05-28-2020 15:53:50 KITCHEN WORKER by Morgan Lima [email or web address] <ELECTRONICALLY SIGNED> By: Morgan Lima MD, [facility] 05/28/20 1553 1155 1155 Morgan Lima MD, [facility] /EPI
--- NOTE | 2020-05-28 16:02 | 2DMMODE ---
[place] [address] 2 D/M-MODE ECHOCARDIOGRAM Name: BREANA GALEAS Room: [address] IN [facility].#: [id number] Admission: 05/28/20 Attend Phys: Jethro Reyes Discharge: Date of : 45 Date of Service: 05/28/20 1602 Report #: [id number] THIS REPORT FOR: cc: Abraham Crawford MD, Bruce D. MD Blick,Morgan Rahman MD [facility] ~ APPROVED REPORT Study performed: 05/28/2020 14:52:14 EXAM: Comprehensive 2D, Doppler, and color-flow Echocardiogram Patient Location: In-Patient Room #: er Status: routine BSA: 2.04 HR: 97 bpm BP: 141/70 mmHg Rhythm: NSR Other Information Study Quality: Good Indications Cardiomyopathy 2D Dimensions IVSd: 9.07 (7-11mm) LVDd: 43.71 mm PWd: 9.18 (7-11mm) LVDs: 19.52 (25-40mm) Aortic Root: 28.94 mm Volumes Left Atrial Volume (Systole) LA ESV Index: 26.20 mL/m2 Aortic Valve AoV Peak David.: 1.34 m/s AO Peak Gr.: 7.16 mmHg LVOT Max P.55 mmHg AO Mean Gr.: 4.03 mmHg LVOT Mean P.34 mmHg LVOT Max V: 1.18 m/s AO V2 VTI: 25.55 cm LVOT Mean V: 0.69 m/s LVOT V1 VTI: 23.67 [place] [address] 2 D/M-MODE ECHOCARDIOGRAM Name: BREANA GALEAS Nestor Room: [address] IN [facility]#: [id number] Admission: 05/28/20 Attend Phys: Jethro Reyes Discharge: Date of : 45 Date of Service: 05/28/20 1602 Report #: [id number] Mitral Valve E/A Ratio: 1.08 MV Decel. Time: 243.75 ms MV E Max David.: 1.17 m/s MV PHT: 70.69 ms MVA (PHT): 3.11 cm2 TDI E/Lateral E': 13.00 E/Medial E': 8.36 Medial E' David.: 0.14 m/s Lateral E' David.: 0.09 m/s Left Ventricle The left ventricle is normal size. There is normal LV segmental wall motion. There is normal left ventricular wall thickness. Left ventricular systolic function is normal. The left ventricular ejection fraction is within the normal range. LVEF is 60-65%. The left ventricular diastolic function is normal. Right Ventricle The right ventricle is normal size. The right ventricular systolic function is normal. Atria The left atrium size is normal. The right atrium size is normal. Aortic Valve The aortic valve is normal in structure. No aortic regurgitation is present. There is no aortic valvular stenosis. Mitral Valve The mitral valve is normal in structure. Mild mitral regurgitation. No evidence of mitral valve stenosis. Tricuspid Valve The tricuspid valve is normal in structure. Trace tricuspid regurgitation. Unable to assess PA pressure. Pulmonic Valve The pulmonary valve is normal in structure. There is no pulmonic valvular regurgitation. Great Vessels The aortic root is normal in size. IVC is normal in size and collapses >50% [place] [address] 2 D/M-MODE ECHOCARDIOGRAM Name: BREANA GALEAS Room: [address] IN [facility].#: [id number] Admission: 05/28/20 Attend Phys: Jethro Reyes Discharge: Date of : 45 Date of Service: 05/28/201601 Report #: [id number] Pericardium There is no pericardial effusion. <Conclusion> Left ventricular systolic function is normal. The left ventricular ejection fraction is within the normal range. <ELECTRONICALLY SIGNED> By: Morgan Lima MD, [facility] 05/28/201601 01 1602 Morgan Lima MD, FACC /INF
[2020-05-28 18:49] VITALS: BP 130/70
[2020-05-28 18:55] VITALS: BP 151/75
[2020-05-28 20:00] VITALS: BP 150/72
--- NOTE | 2020-05-28 20:00 | NUR ---
RECEIVED REPORT AND ASSUMED CARE, ASSESSMENT COMPLETED. PT TO UNIT AT 1830, ADMISSION COMPLETED AT THIS TIME. PT VERY ANXIOUS AND NOT WANTING TO BE ALONE. ASSISTED TO BSC WITH 1 PERSON. HAD LIQ STOOL. O2 ON AT 4L, SOA WITH ACTIVITY. ELLIOTT LOWER LEGS 1+ EDEMA AND TENDER TO TOUCH. TELEMETRY ON SHOWING SR. WILL CONT TO MONITOR AND ASSIST NEEDED.
[2020-05-29 04:00] VITALS: BP 152/73
--- NOTE | 2020-05-29 06:00 | NUR ---
PT WAS ABLE TO SLEEP SHORT EPISODES. WHEN AWAKE YELLS OUT. THIS AM C/O BACK PAIN, MED GIVEN. TELEMETRY CONT TO SHOW SR. NO CHANGE IN ASSESSMENT. HS GOALS OF REST AND SAFETY ACHIEVED.
[2020-05-29 08:00] VITALS: BP 155/75
[2020-05-29 12:00] VITALS: BP 107/62; BP 148/76
--- NOTE | 2020-05-29 14:25 | NUR ---
Pt is A&O. Known to this CM from previous hospital stay. Pt resides at home with her son and grandson. Pt independent with ADLs, son and grandson complete IADLs. Pt has a power chair and walker at home for mobility. Pt has home o2, trilogy and cpap. Pt wears home o2 at 3.5-4L continuous. Hx of [facility] HH. Hx of skilled at [facility]. Goal is home at ca, to follow for HH needs. Pt had u/s of abd today. Following.
[2020-05-29 16:00] VITALS: BP 118/84; BP 136/70
[2020-05-29 20:00] VITALS: BP 150/68
--- NOTE | 2020-05-29 20:14 | NUR ---
PT RESTING. VSS ON 4L NC. SR ON MONITOR. PT C/O PAIN TO LOWER BACK. DOES NOT REMEMBER WHEN PAIN MEDICATIONS ARE GIVEN. NOTHING FURTHER AT THIS TIME.CLWR.WCTM
[2020-05-30] VITALS: BP 131/65
--- NOTE | 2020-05-30 03:07 | NUR ---
ASSUMED PT CARE AT APPROX 1930. PT IS AWAKE AND ORIENTED X4, FORGETFUL. PT IS TRACING SR/ST ON THE SHOE SHINER. PT IS NOT IN DISTRESS, NO DESATURATIONS NOTED ON 4L OF O2/NC. PAIN MEDICINE GIVEN FOR BACK PAIN WITH PARTIAL RELIEF. CALL LIGHT WITHIN REACH. HOURLY ROUNDING DONE FOR PT SAFETY. HIGH FALL PRECAUTIONS IN PLACE.
[2020-05-30 04:00] VITALS: BP 145/60
[2020-05-30 05:36] LABS: ALBUMIN 2.6 g/dL (3.4-5.0); CALCIUM 8.2 mg/dL (8.5-10.1); CREATININE 0.6 mg/dL (0.6-1.3); POTASSIUM 3.8 mmol/L (3.5-5.1); TOTAL BILIRUBIN 0.2 mg/dL (<0.1-1.0); TOTAL PROTEIN 6.2 g/dL (6.4-8.2)
[2020-05-30 11:56] VITALS: BP 130/73
--- NOTE | 2020-05-30 12:09 | CON ---
[address] [address] CONSULTATION Name: BREANA GALEAS Room: [address] IN M.R.#: [id number] Admission: 05/28/20 Attend Phys: Jethro Miller, Discharge: Date of : 45 Report #: [id number] THIS REPORT FOR: cc: Abraham Crawford MD, Bruce D. MD ~ Tristen Mathias MD DATE OF SERVICE: 05/30/2020 Please note at the time of this dictation, the patient was seen and physically examined by myself. REASON FOR CONSULTATION: Elevated LFTs and gallbladder wall thickening. HISTORY OF PRESENT ILLNESS: This 74-year-old female who presented to the Emergency Room with worsening of her shortness of air. She is on home O2 currently and has a longstanding history of COPD with pulmonary fibrosis and chronic respiratory failure. In this past year, she has had numerous bouts of respiratory failure, compounding that she needed to come to the Emergency Room. She did have an echocardiogram done last year that showed a 35% EF. She has never seen a GI doctor before. She denies any upper GI symptoms of nausea, vomiting, abdominal pain or any reflux. She states her bowels move anywhere from daily to every couple of days that are soft and formed. She has not had any issues with those. Liver enzymes have been normal in the past. On admission this time, they were slightly elevated and have begun to trend downward as well. Her BNP was elevated at this admission as well. Earlier this month, she was admitted for her respiratory issues and her LFTs were completely normal at that time. ALLERGIES: LATOSHA INHIBITORS, ARBS, AND ASPIRIN. MEDICATIONS: From home include insulin, Lexapro, ____, Xarelto, gabapentin, Symbicort, albuterol, guaifenesin, Janumet, Protonix, levothyroxine, potassium, carvedilol, Spiriva, Singulair, Levaquin, diclofenac gel, pain medicine and atorvastatin. PAST MEDICAL HISTORY: COPD, chronic systolic congestive heart failure, hypertension, diabetes, history of a DVT x 2, morbid obesity, hypothyroidism. PAST SURGICAL HISTORY: Bilateral total knee replacement and ankle repair. FAMILY HISTORY: Negative for any GI or female cancers. SOCIAL HISTORY: She lives at home. Past use of tobacco. Denies any alcohol [place] [address] CONSULTATION Name: BREANA GALEAS Room: [address]#: [id number] Admission: 05/28/20 Attend Phys: Jethro Miller, Discharge: Date of : 45 Report #: [id number] REVIEW OF SYSTEMS: Twelve-point review of systems is essentially negative except what is mentioned in the HPI. PHYSICAL EXAMINATION: VITAL SIGNS: Temperature 36.1, pulse 70, respirations 16, blood pressure 145/60. HEART: Regular rate and rhythm. LUNGS: Diminished with some faint wheezes noted bilaterally. ABDOMEN: Soft, positive bowel sounds in all 4 quadrants with no masses or tenderness noted. LABORATORY DATA: Hemoglobin is 10.8, white count is 10, platelets 259. CRP is 64.5. BNP was 1100. Total bilirubin was 0.2, alkaline phosphatase is 149, it was 184 on admission. AST is 25 and was 62 on admission, ALT is 103 and 156 on admission. Her GFR is 121. Chest x-ray shows interval development of a small right pleural effusion and right bibasilar atelectasis. Ultrasound showed cholelithiasis and gallbladder wall thickening. IMPRESSION: 1. Elevated LFTs, trending down, likely secondary to congestion. 2. Shortness of air secondary to exacerbation of her chronic obstructive pulmonary disease. 3. Chronic anemia. 4. Congestive heart failure. 5. Anticoagulant therapy, Xarelto secondary to deep venous thrombosis. PLAN: 1. Watch LFTs trending down. 2. Ultrasound showed cholelithiasis. The patient has no pain upon palpation and no complaints at this time. 3. No plans for any endoscopic evaluation at this time and just continue to monitor her LFTs for now. Thank you for allowing us to participate in this patient's care. Please do not hesitate to call with any questions in regard to this consult. Patient with mildly elevated LFTs. She has had LFT elevation in the past, likely from a comination of CHF, fatty liver[place] [address] CONSULTATION Name: BREANA GALEAS Nest[place] Room: [address] IN ..#: [id number] Admission: 05/28/20 Attend Phys: Jethro Miller, Discharge: Date of : 45 Report #: [id number] evaluation at this time. Otherwise agree with assessment and plan by Elvie Gray. <ELECTRONICALLY SIGNED> By: Tristen Mathias MD 05/30/20 1209 0913 [id number] Mathias MD /nt
--- NOTE | 2020-05-30 12:29 | NUR ---
Monitor respiratory, pulm following. Anticipate dc in a few days.
[2020-05-30 15:48] VITALS: BP 150/86
[2020-05-30 20:00] VITALS: BP 150/79
[2020-05-30 20:10] LABS: CALCIUM 8.6 mg/dL (8.5-10.1); CREATININE 0.7 mg/dL (0.6-1.3); MAGNESIUM 2.2 mg/dL (1.8-2.4); POTASSIUM 3.8 mmol/L (3.5-5.1)
--- NOTE | 2020-05-30 20:33 | NUR ---
PT IS RESTLESS.C/O PAIN TO BACK NOT MANAGED BY ALTERNATIVE METHODS NOR MEDICATIONS. PT IS FORGETFUL AND WILL USE CALL LIGHT EVERY 5-20 MINUTES TO ASK ABOUT PAIN MEDICATION OR OTHER REQUESTS,EVEN AFTER PT IS ASKED IF THERE IS ANYTHING ELSE WE CAN HELP WITH OR DO FOR HER. WHITE BOARD IS USED FOR NEXT MEDICATION TIME DUE AND THE LAST TIME SOMEONE CAME TO ASSIST HER.THIS DOES NOT APPEAR TO HELP WITH PT FORGETFULNESS NOR FEELINGS OF SECURITY WITH NEEDS BEING MET. PT DOES AT TIMES REPORT LONELINESS AND THAT SHE WANTS SOMEONE TO CONSTANTLY BE WITH HER.PT EDUCATED WITH THOUGH DESIRE TO STAY WITH PT IS THERE THE CAPABILITY IS NOT. PT ALSO REPORTS FEELING OF SOA. WHEN ASSESSED O2 SAT IS ABOVE 95%,LUNG LEPE CTA. THIS CAN SOMETIMES OCCUR AFTER POSITION CHANGES. PT HAS PUREWICK IN PLACE FOR REDUCTION OF CONTINOUS MOVEMENT AND SOA POTENTIAL.VSS ON 4L NC.SR ON THE MONITOR. PT IS ABLE TO TURN SELF WITHOUT ISSUE.NOTHING FURTHER AT THIS TIME.CLWR.WCTM
[2020-05-31] VITALS (7 sets, daily range): BP systolic 134–162; BP diastolic 64–83
[2020-05-31 04:12] LABS: HEMATOCRIT 32.8 % (37.0-47.0); HEMOGLOBIN 10.4 gm/dL (12.0-15.0); MCH 28.4 pg (26.0-34.0); MCHC 31.9 g/dL (28.0-37.0); MPV 7.2 fl. (7.2-11.1); RBC 3.68 mil/uL (4.20-5.00); RDW-CV 15.8 % (10.5-14.5)
[2020-05-31 04:37] LABS: ALBUMIN 2.6 g/dL (3.4-5.0); CREATININE 0.9 mg/dL (0.6-1.3); MAGNESIUM 2.2 mg/dL (1.8-2.4); POTASSIUM 4.2 mmol/L (3.5-5.1); TOTAL BILIRUBIN 0.2 mg/dL (<0.1-1.0); TOTAL PROTEIN 6.1 g/dL (6.4-8.2)
--- NOTE | 2020-05-31 07:36 | NUR ---
ASSUMED PT CARE AT APPROX 1930. PT IS AWAKE AND ORIENTED X4. PT IS NOT IN DISTRESS, NO DESATURATIONS NOTED ONM 4L OF O2/NC. PT IS TRACING SR/ST ON THE FINANCIAL RISK MANAGER. PT WAS NOTED TO HAVE 6 SECOND RUN OF WHAT APPEARS TO BE MULTIFOCAL VENTRICULAR TACHYCARDIA, PT DENIES CHEST PAIN, VITALS CHARTED. DR PHILLIPS IS INFORMED AND CARDIOLOGY IS CONSULTED. PT IS CLOSELY MONITORED. HIGH FALL PRECAUTIONS IN PLACE.
--- NOTE | 2020-05-31 09:30 | NUR ---
ASSUMED CARE OF PT THIS AM AROUND 0715- REPAIRER CONTROLLER TESTER IN PLACE ORDERED, TRACING SR- UPON ASSESSMENT PT NOTED TO BE RESTING IN BED- PT A&O X4, ANXIOUS- INCONT OF URINE, CONT OF BOWEL- EXT ASSIST X1 WITH TRANSFERS- DIMINISHED LUNG SOUNDS NOTED, EXPIRATORY WHEEZING- NON-PRODUCTIVE WET COUGH NOTED- DYSPNEA NOTED ON EXERTION- VSS, O2 SAT 99% ON 4L VIA NC- ABD SOFT/OBESE/NON-TENDER, BS X4 QUADS- LAST BM REPORTED 05/30/20- IV NOTED TO LEFT AC INTACT AND SL, IV ABT GIVEN THIS AM PRESCRIBED- GOOD PO INTAKE NOTED THIS AM WITH BREAKFAST, BS MONITORED ORDERED WITH SSI PRESCRIBED- 2+ BLE EDEMA NOTED WITH DISCOLORATION AND SCALEYNESS- PT RATEPAIN 8/10 TO LOWER BACK, REPOSTIONING WITH LIDOCAINE PATCH APPLIED INDICATED- CALL LIGHT AND PERSONAL BELONGINGS WITH IN REACH- HOURLY ROUNDS IN PLACE R/T SAFETY/NEEDS- ALL NEEDS MET AT THIS TIME-WCTM
--- NOTE | 2020-05-31 11:12 | NUR ---
Anticipate dc to home tomorrow with HH. CM faxed initial referral to [facility], [place] orders [place] need [place] faxed at [place] to [phone]
[2020-06-01] VITALS: BP 175/75
[2020-06-01 02:56] LABS: HEMATOCRIT 33.7 % (37.0-47.0); HEMOGLOBIN 10.9 gm/dL (12.0-15.0); MCH 28.5 pg (26.0-34.0); MCHC 32.4 g/dL (28.0-37.0); MCV 87.9 fL (80.0-100.0); MPV 7.1 fl. (7.2-11.1); RBC 3.84 mil/uL (4.20-5.00); RDW-CV 15.6 % (10.5-14.5); WBC 10.1 thou/uL (4.0-11.0)
[2020-06-01 03:12] LABS: CALCIUM 8.2 mg/dL (8.5-10.1); CREATININE 0.7 mg/dL (0.6-1.3); MAGNESIUM 2.5 mg/dL (1.8-2.4)
[2020-06-01 04:00] VITALS: BP 161/84
--- NOTE | 2020-06-01 05:57 | NUR ---
ASSUMED PT CARE AT APPROX 1930. PT IS AWAKE AND ORIENTED X4. PT IS NOT IN DISTRESS, NO DESATURATIONS NOTED ON 4L OF O2/NC. PT IS TRACING ST/SR ON THE FIRE ALARM INSTALLER. PAIN MEDICINE GIVEN PER AUG FOR BACK PAIN-WITHI PARTIAL RELIEF. NO ACUTE CHANGES THIS SHIFT. PUREWICK CHANGED AT 0530,PERICARE PROVIDED.CALL LIGHT WITHIN REACH. HIGH FALL PRECAUTIONS IN PLACE. HOURLY ROUNDING DONE FOR PT SAFETY.
[2020-06-01 08:00] VITALS: BP 137/62
[2020-06-01 11:30] VITALS: BP 130/73
[2020-06-01 17:15] VITALS: BP 125/68
--- NOTE | 2020-06-01 18:06 | NUR ---
ASSUMED PT CARE AT 0730, PT AOX4 BUT FORGETFUL, C/O PAIN THROUGHOUT SHIFT TREATED W/ PRN NORCO AND TRAMADOL W/ SOME RELIEF. PT GOT UP TO COMODE NUMEROUS TIMES TODAY AND HAD MULTIPLE LARGE BMS. PT WORKED W/ RT AND KEPT SATS ABOVE 90%, NO C/O SHORTNESS OF BREATH. PT GOAL IS TO KEEP SATS ABOVE 90% AND WORK ON PAIN MANAGEMENT. HOURLY ROUNDING OBSERVED, FALL PRECAUTIONS IN PLACE, CALL LIGHT W/IN REACH.
[2020-06-01 20:00] VITALS: BP 141/68
[2020-06-02 00:24] VITALS: BP 123/62
[2020-06-02 03:50] LABS: HEMATOCRIT 33.7 % (37.0-47.0); HEMOGLOBIN 10.8 gm/dL (12.0-15.0); MCH 28.3 pg (26.0-34.0); MCHC 31.9 g/dL (28.0-37.0); MCV 88.8 fL (80.0-100.0); MPV 7.2 fl. (7.2-11.1); RBC 3.8 mil/uL (4.20-5.00); RDW-CV 15.8 % (10.5-14.5)
[2020-06-02 04:06] LABS: ALBUMIN 2.5 g/dL (3.4-5.0); CALCIUM 8.2 mg/dL (8.5-10.1); CREATININE 0.7 mg/dL (0.6-1.3); MAGNESIUM 2.4 mg/dL (1.8-2.4); POTASSIUM 4.3 mmol/L (3.5-5.1); TOTAL BILIRUBIN 0.2 mg/dL (<0.1-1.0)
[2020-06-02 05:20] VITALS: BP 136/68
[2020-06-02 08:00] VITALS: BP 144/67
--- NOTE | 2020-06-02 18:59 | NUR ---
PT IS ANXIOUS AND REQUIRES CONSTANT REASSURANCE DESPITE BEING TREATED WITH PRN MEDICATIONS. CONTINUES TO COMPLAIN ABOUT SEVERE BACK PAIN AFTERF NURSING INTERVENTIONS AND PRN MEDICATION. VSS, ON PAINTING TRADES WORKER, LOCO. IN NAD AT THIS TIME. FAMILY UPDATED THIS EVENING BY TELEPHONE. WILL CONTINUE WITH POC. NURSING WILL CONTINUE TO MONITOR.
[2020-06-02 21:00] VITALS: BP 145/72
[2020-06-03 00:14] VITALS: BP 148/75
[2020-06-03 03:52] LABS: HEMATOCRIT 32.8 % (37.0-47.0); HEMOGLOBIN 10.4 gm/dL (12.0-15.0); MCH 28.2 pg (26.0-34.0); MCHC 31.7 g/dL (28.0-37.0); MCV 88.9 fL (80.0-100.0); MPV 7.3 fl. (7.2-11.1); NUCLEATED RBCS 0 /100WBC; PLATELET COUNT* 264 thou/uL (150-400); RBC 3.69 mil/uL (4.20-5.00); RDW-CV 16.1 % (10.5-14.5); WBC 11.2 thou/uL (4.0-11.0)
[2020-06-03 04:13] LABS: ALBUMIN 2.5 g/dL (3.4-5.0); CALCIUM 8.2 mg/dL (8.5-10.1); CREATININE 0.6 mg/dL (0.6-1.3); POTASSIUM 4.6 mmol/L (3.5-5.1); TOTAL BILIRUBIN 0.2 mg/dL (<0.1-1.0); TOTAL PROTEIN 5.9 g/dL (6.4-8.2)
[2020-06-03 04:50] VITALS: BP 161/85
--- NOTE | 2020-06-03 05:02 | NUR ---
No acute event this shift. Pt sleep most of the night. Complains of chronic back pain. Meds given per aug. O2 sat 90's on 3L NC. Pt call light within reach, safety precaution in placed.
[2020-06-03 05:47] LABS: ABSOLUTE LYMPHOCYTES 0.3 thou/uL (0.8-5.3); ABSOLUTE MONOCYTES 0.3 thou/uL (0.0-1.2); ABSOLUTE NEUTROPHILS 10.5 thou/uL (1.6-8.1); PLATELET ESTIMATE ADEQUATE
[2020-06-03 09:00] VITALS: BP 148/77
[2020-06-03 11:30] VITALS: BP 143/68
[2020-06-03 16:30] VITALS: BP 152/72
[2020-06-04 00:45] VITALS: BP 157/69
[2020-06-04 00:59] VITALS: BP 157/69
--- NOTE | 2020-06-04 04:27 | NUR ---
PT TRANSFERRED FROM [facility] AT ABOUT 2100. A&O X 4. ON 3L BY [place]. MEDS GIVEN ORDERED. C/O CHRONIC BACKPAIN, SCHEDULED TYLENOL GIVEN. Q4H BREATING TREATMENT. PUREWICK IN PLACE. CALL LIGHT WITHIN REACH. WILL CONTINUE TO MONITOR.
[2020-06-04 06:50] LABS: ABSOLUTE BASOPHILS 0.1 thou/uL (0.0-0.2); ABSOLUTE EOSINOPHILS 0.1 thou/uL (0.0-0.7); ABSOLUTE LYMPHOCYTES 1.4 thou/uL (0.8-5.3); ABSOLUTE MONOCYTES 0.6 thou/uL (0.0-1.2); ABSOLUTE NEUTROPHILS 10.3 thou/uL (1.6-8.1); BASOPHILS 0.8 %; EOSINOPHILS 0.7 %; HEMATOCRIT 38.9 % (37.0-47.0); HEMOGLOBIN 12.3 gm/dL (12.0-15.0); LYMPHOCYTES 11.2 %; MCH 28.2 pg (26.0-34.0); MCHC 31.7 g/dL (28.0-37.0); MONOCYTES 4.4 %; MPV 7.2 fl. (7.2-11.1); NUCLEATED RBCS 0 /100WBC; POLYS 82.9 %; RBC 4.37 mil/uL (4.20-5.00); RDW-CV 15.8 % (10.5-14.5); WBC 12.4 thou/uL (4.0-11.0)
[2020-06-04 06:50] LABS: BE 8.6 mmol/L (-2 to +3); pH 7.385 (7.340-7.450)
[2020-06-04 06:54] LABS: PLATELET COUNT* 351 thou/uL (150-400)
[2020-06-04 06:59] LABS: CALCIUM 8.8 mg/dL (8.5-10.1); CREATININE 0.5 mg/dL (0.6-1.3)
[2020-06-04 07:01] LABS: POTASSIUM 5.1 mmol/L (3.5-5.1)
--- NOTE | 2020-06-04 07:15 | NUR ---
PT WITH INCREASED ANXIETY AND DIFFICUTLY BREATHING STARTING AROUND 0530; PT ATTEMPTING TO HAVE BM; PT ANXIOUS DID NOT WANT STAFF TO LEAVE THE ROOM; PT STARTED TO SCREAM NEEDED ASSISTANCE IN ROOM IMMEDIALTY; WITH INCREASE ANXIETY PT O2 SAT DECREASED AND HR ELEVATED 150 PT SAT LOW 80'S O2 @ 5L; PT CONTINUED TO STRUGGLE WITH BREATHING; RADIATION PROTECTION SPECIALIST CALLED; PT RECEIVED PRN XANAX, HYRDOCODONE, RECEIVED AM MEDS BUMEX AND BREATHING TX STAT EARLY; PT ON 6L SATS REMAIN IN HIGH 80'S; RT AT BEDSIDE PLACED ON BIPAP 100%; LABS AND EKG EKG OBTAINED ST RATE IN 120'S; PT RR- 16 WITH SAT 100%; DR WARD NOTIFIED ORDERS RECIEVED TO TRANSFER TO TELE.
[2020-06-04 07:36] VITALS: BP 158/85
--- NOTE | 2020-06-04 07:38 | NUR ---
PT HAD TO USE BEDPAN FOR BM AT ABOUT 0530. THEN SHE DIDNT WANT NURSE TO LEAVE THE ROOM. NURSE EXPLAINED "DR IS ON THE PHONE SO SHE WILL COME BACK SOON" PT STARTED TO SCREAM THAT SHE WANTS SOMEBODY IN THE ROOM. THEN PT WAS HAVING PANIC ATTACK AND SAID SHE IS SOA. CHECKED HER O2 SAT, CALLED RESPIRATORY, XANAX, NORCO GIVEN. BIPAP APPLIED. BUT PT WAS STILL DESATTING WITH TACHYPNEA. ECONOMIC HISTORY TEACHER CALLED RAPID RESPONSE. DR VEGAS NOTIFIED.
[2020-06-04 08:34] LABS: ALBUMIN 2.8 g/dL (3.4-5.0); CALCIUM 8.7 mg/dL (8.5-10.1); CREATININE 0.6 mg/dL (0.6-1.3); POTASSIUM 3.8 mmol/L (3.5-5.1); TOTAL BILIRUBIN 0.4 mg/dL (<0.1-1.0); TOTAL PROTEIN 6.9 g/dL (6.4-8.2)
--- NOTE | 2020-06-04 11:00 | NUR ---
PT.TO TRANSFER TO TELEMETRY FLOOR THIS AM AFTER RAT CALL. PT.REQUIRING INCREASE NEED FOR O2. AT DISCHARGE SHE WANTS TO CONTINUE TO [facility] FOR HOME HEALTH.
--- NOTE | 2020-06-04 11:02 | NUR ---
PATIENT CURRENTLY ON 8L HIGH FLOW OXYGEN VIA NASAL CANNULA AND O2 SATURATIONS ARE REMAINING IN LOW 90'S. PATIENT IS TO BE MOVED TO TELEMETRY UNIT PER ORDER GIVEN BY DR. WARD DURING THIS MORNING'S SHIFT CHANGE. SPOKE WITH "JOHNNA" ON 2W AT APPROX. 1055 TO GIVE REPORT. PATIENT LEFT UNIT WITH PERSONAL BELONGINGS VIA BED AND O2, ACCOMPANIED BY NURSING STAFF AT APPROX. 1103.
[2020-06-04 12:00] VITALS: BP 144/73
--- NOTE | 2020-06-04 12:28 | NUR ---
RECEIVED REPORT FROM JADON RN ON 3W OF EXPECTED TRANSFER AT 1053, POST RF EVENT- PT ARRIVED TO UNIT ROOM 205 VIA BED AT 1104, ASSISTED BY MARINAING/DIAMOND AND RT- PT A&O X4, ANXIOUS- PURWIK NOTED TO BE IN PLACE- PRIOR ASSESSMENT REVIEWED AND THIS NURSE AGREES- VSS- BIPAP PLACED PER RT INDICATED- BS MONITORED ORDERED- CALL LIGHT AND PERSONAL BELONGINGS WITH IN REACH- ALL NEEDS MET AT THIS TIME-WCTM
--- NOTE | 2020-06-04 13:04 | NUR ---
Nutrition: screen for LOS. Pt in w/ COPD exacerbation, CHF. Other hx of DM, HTN. BMI indicates class III morbid obesity. Pt had eaten 75% or more of lunch at visit, was c/o not being able to breath. RN in to assist pt with BIPAP. Prealbumin 18.0, CO2 37, BUN 21. Meds reviewed. Assessed at low nutrition risk at this time.
[2020-06-04 13:45] LABS: BE 9.6 mmol/L (-2 to +3); pH 7.458 (7.340-7.450)
[2020-06-04 13:48] LABS: PCO2 50.6 mmHg (35.0-45.0); PO2 51.4 mmHg (75.0-100.0)
--- NOTE | 2020-06-04 15:12 | EKG ---
[place] [address] ELECTROCARDIOGRAM REPORT Name: BREANA GALEAS Room: [address] IN [facility].#: [id number] Admission: 05/28/20 Attend Phys: Jethro Reyes Discharge: Date of : 45 Date of Service: 06/03/202006 Report #: [id number] THIS REPORT FOR: //name// [facility] Test Date: 2020-06-03 Test Time: 20:07:20 Pat Name: BREANA GALEAS Department: Room: [facility] Gender: F Spanisher: NAJMA : 1945 Requested By: Jethro Miller Order Number: [id number] Guadalupe MD: Richar Mora Measurements Intervals [place] Rate: 115 P: 67 DE: 127 QRS: 66 QRSD: 80 T: 60 QT: 304 QTc: 421 Interpretive Statements Sinus tachycardia Compared to ECG 05/28/2020 11:55:55 Atrial premature complex(es) no longer present Electronically Signed On 06-04-2020 15:11:52 PROFESSOR OF EDUCATION by Richar Mora [email or web address] <ELECTRONICALLY SIGNED> By: Richar Mora MD, FAC 06/04/20 1511 06 06 Richar Mora MD, [facility] /EPI
--- NOTE | 2020-06-04 15:13 | EKG ---
[place] [address] ELECTROCARDIOGRAM REPORT Name: BREANA GALEAS Room: [address] IN [facility].#: [id number] Admission: 05/28/20 Attend Phys: Jethro Reyes Discharge: Date of : 45 Date of Service: 06/04/20 0644 Report #: [id number] THIS REPORT FOR: //name// [facility] Test Date: 2020-06-04 Test Time: 06:44:52 Pat Name: BREANA GALEAS Department: Room: [facility] Gender: F Flour Mixer: MARYAM : 1945 Requested By: Bharat Abraham Order Number: [id number] Guadalupe MD: Richar Mora Measurements Intervals [place] Rate: 122 P: 61 VT: 128 QRS: 74 QRSD: 90 T: 62 QT: 298 QTc: 425 Interpretive Statements Sinus tachycardia Compared to ECG 06/03/2020 20:07:20 No significant changes Electronically Signed On 06-04-2020 15:13:29 FLORICULTURE TEACHER by Richar Mora [email or web address] <ELECTRONICALLY SIGNED> By: Richar Mora MD, [facility] 06/04/20 1513 0644 Richar Mora MD, [facility] /EPI
[2020-06-04 16:45] VITALS: BP 149/66
[2020-06-04 20:00] VITALS: BP 146/69; BP 148/72
[2020-06-05] VITALS: BP 160/82
[2020-06-05 04:00] VITALS: BP 142/78
[2020-06-05 04:29] LABS: ABSOLUTE EOSINOPHILS 0.1 thou/uL (0.0-0.7); ABSOLUTE MONOCYTES 0.6 thou/uL (0.0-1.2); ABSOLUTE NEUTROPHILS 6.1 thou/uL (1.6-8.1); BASOPHILS 0.4 %; HEMATOCRIT 32.7 % (37.0-47.0); HEMOGLOBIN 10.6 gm/dL (12.0-15.0); LYMPHOCYTES 12.7 %; MCH 28.4 pg (26.0-34.0); MCHC 32.5 g/dL (28.0-37.0); MCV 87.5 fL (80.0-100.0); MONOCYTES 7.8 %; MPV 7.2 fl. (7.2-11.1); NUCLEATED RBCS 0 /100WBC; PLATELET COUNT* 327 thou/uL (150-400); POLYS 78.1 %; RBC 3.73 mil/uL (4.20-5.00); RDW-CV 15.8 % (10.5-14.5); WBC 7.8 thou/uL (4.0-11.0)
[2020-06-05 04:52] LABS: ALBUMIN 2.2 g/dL (3.4-5.0); CALCIUM 8.4 mg/dL (8.5-10.1); CREATININE 0.5 mg/dL (0.6-1.3); POTASSIUM 3.5 mmol/L (3.5-5.1); TOTAL BILIRUBIN 0.4 mg/dL (<0.1-1.0); TOTAL PROTEIN 5.7 g/dL (6.4-8.2)
--- NOTE | 2020-06-05 05:27 | NUR ---
ASSUMED CARE OF PT AFTER REPORT AT 1930. PT A&OX4. VSS. PHYSICAL ASSESSMENT COMPLETED AND CHARTED. PT ON BIPAP 40%. PT TRACING SR/ST ON TELE. PT VERY ANXIOUS. PT COMPLAINED THAT SHE CANT BREATH BUT REFUSING BIPAP/O2 EVEN AFTER EDUCATION. O2 SAT 88-90'S. ANXIETY MEDICATION GIVEN. FALL PRECAUTIONS IN PLACE. CALL LIGHT WITHIN REACH.
[2020-06-05 07:36] VITALS: BP 127/64
--- NOTE | 2020-06-05 08:54 | NUR ---
ASSUMED CARE OF PT THIS AM AROUND 0715- PRINTED CIRCUIT BOARDS CONTACT PRINTER IN PLACE ORDERED, TRACING SR- UPON ASSESSMENT PT NOTED TO MELINDA RESTING WITH BIPAP IN PLACE- PT NOTED TO BE DRAWSY THIS AM- INCONT OF URINE WITH PURWICK IN PLACE, INCONT OF BOWEL- Q [address] INDICATED- VSS, O2 SAT 94% ON BIPAP THIS AM- ABD SOFT/OBESE/NON-TENDER, BS X4 QUADS- LAST BM REPORTED 06/04/20- IV NOTED OT LEFT FA INACT AND SL- SET ASSIST REQUIRED WITH MEALS, BS MONITORED ORDERED- PT NOTED TO BE HAVING TROUBLE THIS AM WITH THIN LIQUIDS WITH NOTED PRODUCED COUGH, ST ORDERED TO FURTHER ASSESS- NO PAIN REPORTED THIS AM- CALL LIGHT AND PERSONAL BELONGINGS WITH IN REACH- HOURLY ROUNDS IN PLACE R/T SAFETY/NEEDS- ALL NEEDS MET AT THIS TIME-WCTM
[2020-06-05 11:29] LABS: BE 9.3 mmol/L (-2 to +3); PCO2 51.5 mmHg (35.0-45.0); PO2 52.8 mmHg (75.0-100.0); pH 7.448 (7.340-7.450)
[2020-06-05 12:00] VITALS: BP 119/69
--- NOTE | 2020-06-05 13:41 | EKG ---
[place] [address] ELECTROCARDIOGRAM REPORT Name: BREANA GALEAS Room: [address] IN ..#: [id number] Admission: 05/28/20 Attend Phys: Jethro Reyes Discharge: Date of : 45 Date of Service: 06/05/20 1124 Report #: [id number] THIS REPORT FOR: //name// [facility] Test Date: 2020-06-05 Test Time: 11:24:34 Pat Name: BREANA GALEAS Department: Room: [address] Gender: F Production Solderer: YOCASTA : 1945 Requested By: Ian Landaverde Order Number: [id number] Guadalupe MD: Jabier Nassar Measurements Intervals [place] Rate: 110 P: 55 WI: 123 QRS: 70 QRSD: 86 T: 61 QT: 323 QTc: 438 Interpretive Statements Sinus tachycardia Compared to ECG 06/04/2020 06:44:52 No significant changes Electronically Signed On 06-05-2020 13:41:18 COLLEGE PROFESSOR by Jabier Nassar [email or web address] <ELECTRONICALLY SIGNED> By: Jabier Nassar MD, [facility] 06/05/20 1341 1124 1124 Jabier Nassar MD, [facility] /EPI
--- NOTE | 2020-06-05 14:12 | NUR ---
ST eval. Not progressing. On bipap, fio2 at 40%
[2020-06-05 16:00] VITALS: BP 130/72
[2020-06-05 20:00] VITALS: BP 146/69
[2020-06-06 00:30] VITALS: BP 106/51
[2020-06-06 04:16] LABS: HEMATOCRIT 33.1 % (37.0-47.0); HEMOGLOBIN 10.7 gm/dL (12.0-15.0); MCHC 32.3 g/dL (28.0-37.0); MCV 86.8 fL (80.0-100.0); MPV 7.1 fl. (7.2-11.1); NUCLEATED RBCS 0 /100WBC; PLATELET COUNT* 365 thou/uL (150-400); RBC 3.82 mil/uL (4.20-5.00); RDW-CV 15.5 % (10.5-14.5); WBC 5.8 thou/uL (4.0-11.0)
[2020-06-06 04:26] LABS: CALCIUM 8.3 mg/dL (8.5-10.1); CREATININE 0.6 mg/dL (0.6-1.3); POTASSIUM 3.8 mmol/L (3.5-5.1); TOTAL BILIRUBIN 0.4 mg/dL (<0.1-1.0); TOTAL PROTEIN 5.7 g/dL (6.4-8.2)
[2020-06-06 05:00] VITALS: BP 145/70
--- NOTE | 2020-06-06 05:13 | NUR ---
ASSUMED CARE OF PT AFTER REPORT AT 1930. PT A&OX4. VERY ANXIOUS. PT CLAIMED SHE CANNOT BREATHE-O2 SAT 90%. PHYSICAL ASSESSMENT COMPLETED AND CHARTED. PT ON O2 HFNC 7L/BIPAP. PT STILL REFUSING BIPAP-ANXIETY MEDICATION GIVEN. PT ABLE TO SLEEP WELL AND WORE BIPAP ALL NIGHT.PT WITH BOOTH TO DEPENDENT DRAIN. FALL PRECAUTIONS IN PLACE. CALL LIGHT WITHIN REACH.
[2020-06-06 05:49] LABS: ABSOLUTE LYMPHOCYTES 0.1 thou/uL (0.8-5.3); ABSOLUTE MONOCYTES 0.3 thou/uL (0.0-1.2); ABSOLUTE NEUTROPHILS 5.3 thou/uL (1.6-8.1); ANISOCYTOSIS 1+; HYPOCHROMASIA 1+; PLATELET ESTIMATE ADEQUATE; POIKILOCYTOSIS 1+
[2020-06-06 07:56] VITALS: BP 137/77
--- NOTE | 2020-06-06 09:05 | NUR ---
ASSUMED CARE OF PT THIS AM AROUND 0715- MANAGER OF CARE IN PLACE ORDERED, TRACING SR- UPON ASSESSMENT PT NOTED TO BE RESTING IN BED, WITH BIPAP IN PLACE- NOTED TO BE ANXIOUS THIS AM, STATING SHE CAN'T BREATH; WANTING TO PULL OFF BIPAP- INCONT OF B/B- Q2 HOUR TURNS IN PLACE INDICATED- COURSE LUNG SOUNDS NOTED WITH WHEEZES- VSS, O2 SAT 94% ON BIPAP THIS AM- ST HERE AT BEDSIDE TO EVAL THIS AM, OKAY FOR GROUND WITH NECTAR LIQUIDS NOTED-SET UP REQUIRED WITH MEALS- BS MONITORED ORDERED, SSI PRESCIBED- ABD SOFT/OBESE/NON-TENDER, BS X4 QUADS- BM REPORTED THIS AM- NEW 20 GAUGE IV PLACED TO RIGH FA THIS AM- CALL LIGHT AND PERSONAL BELONGINGS WITH IN REACH- HOURLY ROUNDS IN PLACE R/T SAFETY/NEEDS- ALL NEEDS MET AT THIS TIME-WCTM
[2020-06-06 12:00] VITALS: BP 110/59
--- NOTE | 2020-06-06 12:48 | NUR ---
Pt remains on bipap, anxious, yelling out. Anticipate dc in several more days.
[2020-06-06 16:00] VITALS: BP 108/62
[2020-06-06 18:45] LABS: CALCIUM 8.5 mg/dL (8.5-10.1); CREATININE 0.6 mg/dL (0.6-1.3); MAGNESIUM 2.6 mg/dL (1.8-2.4); POTASSIUM 3.7 mmol/L (3.5-5.1)
[2020-06-06 21:10] VITALS: BP 143/74
[2020-06-07] VITALS: BP 155/84
[2020-06-07 04:30] VITALS: BP 185/87
[2020-06-07 04:46] LABS: ABSOLUTE LYMPHOCYTES 0.3 thou/uL (0.8-5.3); ABSOLUTE MONOCYTES 0.5 thou/uL (0.0-1.2); ABSOLUTE NEUTROPHILS 7.9 thou/uL (1.6-8.1); BASOPHILS 0.1 %; HEMATOCRIT 35.1 % (37.0-47.0); HEMOGLOBIN 11.3 gm/dL (12.0-15.0); LYMPHOCYTES 3.6 %; MCH 28.5 pg (26.0-34.0); MCHC 32.2 g/dL (28.0-37.0); MCV 88.5 fL (80.0-100.0); MONOCYTES 5.9 %; MPV 6.9 fl. (7.2-11.1); NUCLEATED RBCS 0 /100WBC; PLATELET COUNT* 414 thou/uL (150-400); POLYS 90.4 %; RBC 3.97 mil/uL (4.20-5.00); RDW-CV 15.7 % (10.5-14.5); WBC 8.7 thou/uL (4.0-11.0)
[2020-06-07 05:31] LABS: CALCIUM 8.7 mg/dL (8.5-10.1); CREATININE 0.5 mg/dL (0.6-1.3); POTASSIUM 3.9 mmol/L (3.5-5.1)
--- NOTE | 2020-06-07 06:30 | NUR ---
Pt slept well for much of shift, but anxious and frequently calls out when awake: either for a drink, for "help," or c/o SOA. Pt also tries to get staff members to stay in room with her, stating "I don't want to be alone." VSS. Medicated prn for pain and anxiety. Will continue to monitor.
[2020-06-07 08:30] VITALS: BP 179/74
[2020-06-07 11:55] VITALS: BP 165/51
--- NOTE | 2020-06-07 12:47 | NUR ---
Pt remains on bipap, 7l of o2 when off. Pt continues to screen out. Family contacted, none are available to come and see Pt, Pt hangs up when they call. No dc plannned at this time. Following.
[2020-06-07 14:47] LABS: BE 9.4 mmol/L (-2 to +3); pH 7.393 (7.340-7.450)
[2020-06-07 14:52] LABS: PCO2 61.1 mmHg (35.0-45.0)
[2020-06-07 17:02] VITALS: BP 173/89
[2020-06-07 20:18] VITALS: BP 153/76
--- NOTE | 2020-06-07 20:22 | NUR ---
I ASSUMED CARE OF THE PATIENT AT 0700. SHE IS ALERT AND ORIENTED X4, BUT BEDREST AND VERY VOCAL. SHE YELLS OUT ALL THE TIME BEGGING FOR WATER AND THE BIPAP TO BE TAKEN OFF. BED IS IN THE LOW LOCKED POSITION AND CALL LIGHT IS IN REACH. PAIN IS MANAGED WITH PRN MEDS. AFTER MULTIPLE CALLS TO FAMILY, HER SON CAME TO THE BEDSIDE FOR SEVERAL HOURS TODAY. SHE WAS MUCH CALMER WITH HIM BY HER SIDE. HER PRN MEDS WORK WELL FOR A LITTLE BIT, BUT NOT UNTIL THE NEXT DOSE. SHE HAS A BOOTH THAT WAS FLUSHED WITH 20CC OF NORMAL SALINE AND IT SEEMED TO HELP. BLOOD GLUCOSE IS CHECKED ACHS AND SLIDING SCALE INSULIN WAS GIVEN. CRITICAL LAB WAS CALLED BY [facility] AND BIPAP WAS PLACED BACK ON PATIENT. SHE REFUSES THE BIPAP AND IS VERY DEMANDING. WILL CONTINUE TO MONITOR.
[2020-06-08] VITALS (7 sets, daily range): BP systolic 136–179; BP diastolic 40–86
[2020-06-08 03:31] LABS: ABSOLUTE LYMPHOCYTES 0.2 thou/uL (0.8-5.3); ABSOLUTE MONOCYTES 0.9 thou/uL (0.0-1.2); ABSOLUTE NEUTROPHILS 9.3 thou/uL (1.6-8.1); BASOPHILS 0.2 %; HEMOGLOBIN 11.5 gm/dL (12.0-15.0); LYMPHOCYTES 2.3 %; MCH 28.2 pg (26.0-34.0); MCV 88.1 fL (80.0-100.0); MONOCYTES 8.9 %; MPV 6.7 fl. (7.2-11.1); NUCLEATED RBCS 0 /100WBC; PLATELET COUNT* 484 thou/uL (150-400); POLYS 88.6 %; RBC 4.09 mil/uL (4.20-5.00); RDW-CV 15.3 % (10.5-14.5); WBC 10.5 thou/uL (4.0-11.0)
[2020-06-08 04:20] LABS: CALCIUM 8.9 mg/dL (8.5-10.1); CREATININE 0.6 mg/dL (0.6-1.3); POTASSIUM 3.9 mmol/L (3.5-5.1)
--- NOTE | 2020-06-08 09:08 | NUR ---
PT IS ABLE TO COMMUNICATE HER NEEDS TO STAFF WITH VERY MINOR DIFFICULTY; SHE IS SOMEWHAT [id number] AND IS CONFUSED AND FORGETFUL AT TIMES. SHE HAS DENIED THE NEED FOR PAIN MEDICATION DURING MEDICAL RESEARCHER. PT FREQUENTLY YELLS FOR SOMETHING TO DRINK OR FOR HELP AND IS FUSSY; STAFF GIVE HER NECTAR THICK LIQUIDS TO DRINK ONLY. BOOTH HAS BEEN PATENT ON MEDICAL RESEARCHER. PT IS FREQUENTLY UNCOOPERATIVE WITH MOVING AND REFUSES TURNS OFTEN.
--- NOTE | 2020-06-08 16:24 | NUR ---
PT REMAINED ALERT AND ORIENTED AND FORGETFUL. PT REPEATEDLY EDUCATED ON BIPAP. PT REFUSES Q2 TURNS. FAMILY CALLED AND UPDATED, PT MADE AWARE OF ROAD CONDITIONS AND THAT FAMILY WILL NOT BE HERE TODAY. PT EDUCATED ON MEDS AND WHY ON NECTAR THICKENED LIQUIDS. FALL RISK PRECAUTIONS. HEART MONITORED. HOURLY ROUNDING COMPLETED.
[2020-06-09 03:38] LABS: ABSOLUTE LYMPHOCYTES 0.2 thou/uL (0.8-5.3); ABSOLUTE NEUTROPHILS 10.1 thou/uL (1.6-8.1); BASOPHILS 0.1 %; HEMATOCRIT 37.3 % (37.0-47.0); HEMOGLOBIN 11.6 gm/dL (12.0-15.0); LYMPHOCYTES 1.8 %; MCH 27.4 pg (26.0-34.0); MCHC 31.2 g/dL (28.0-37.0); MCV 87.8 fL (80.0-100.0); MONOCYTES 8.9 %; MPV 6.8 fl. (7.2-11.1); NUCLEATED RBCS 0 /100WBC; PLATELET COUNT* 523 thou/uL (150-400); POLYS 89.2 %; RBC 4.25 mil/uL (4.20-5.00); RDW-CV 15.4 % (10.5-14.5); WBC 11.4 thou/uL (4.0-11.0)
[2020-06-09 03:52] LABS: ANION GAP < 0 mmol/L (7-16); BUN 30 mg/dL (7-18); CALCIUM 8.8 mg/dL (8.5-10.1); CHLORIDE 102 mmol/L (98-107); CO2 42 mmol/L (21-32); CREATININE 0.6 mg/dL (0.6-1.3); GLUCOSE 154 mg/dL (70-99); POTASSIUM 4.1 mmol/L (3.5-5.1); SODIUM 142 mmol/L (136-145)
[2020-06-09 04:00] VITALS: BP 148/72
--- NOTE | 2020-06-09 05:00 | NUR ---
ASSUMED PT CARE AT 1905. PT EXTREMELY ANXIOUS THIS SHIFT, FREQUENLY YELLING OUT. SLEPT FOR APPROX 4 HOURS. STONE SETTER METAL OPTICAL FRAMES IN PLACE, TRACING SR/ST. HOURLY ROUNDING COMPLETED. PT REFUSED REPOSITIONING. EDUCATION GIVEN, PT REQUIRES REINFORCEMENT. CALL LIGHT WITHIN REACH.
--- NOTE | 2020-06-09 07:15 | NUR ---
CHANGE OF SHIFT REPORT GIVEN PATIENT SEEN AT BEDSIDE, IN BED SITTING UP ASSUMED PATIENT CARE
[2020-06-09 08:00] VITALS: BP 178/81
[2020-06-09 12:39] VITALS: BP 159/73
[2020-06-09 16:15] VITALS: BP 116/64
[2020-06-09 20:36] VITALS: BP 123/91
[2020-06-10 00:35] VITALS: BP 162/92
[2020-06-10 04:36] VITALS: BP 159/91
--- NOTE | 2020-06-10 06:02 | NUR ---
PT HIGH ANXIETY, GIVEN 1 MG ATIVAN Q4 ALL SHIFT. SHE YELLS OUT FOR HELP AND WANTS SOMEONE TO REMOVE HER BIPAP. SHE HAS REMOVED IT SEVERAL TIMES. RT AND NURSING STAFF HAVE BEEN IN REPEATEDLY TO EDUCATE PATIENT ON WHY SHE IS WEARING THE BIPAP AND SHE SAYS SHE DOESNT CARE AND WANTS TO TAKE IT OFF. SHE IS NON COMPLIANT. AT 10 L AT THIS TIME. SHE HAS MANAGED TO KEEP THE BIPAP ON MOST OF THE SHIFT BUT HAS BEEN YELLING OUT FOR SEVERAL HOURS OF HOW SHE CANNOT BREATHE. WHEN ATIVAN IS EFFECTIVE SHE SLEEPS AND SATS AT 95%.
--- NOTE | 2020-06-10 07:10 | NUR ---
CHANGE OF SHIFT REPORT GIVEN PATIENT SEEN AT BEDSIDE, SITTING UP IN BED ON BIPAP ASSUMED PATIENT CARE
[2020-06-10 08:00] VITALS: BP 192/99
[2020-06-10 16:32] VITALS: BP 190/96
[2020-06-10 20:30] VITALS: BP 178/90
[2020-06-11 00:17] VITALS: BP 156/89
[2020-06-11 04:33] VITALS: BP 156/68
--- NOTE | 2020-06-11 04:52 | NUR ---
EARLY SHIFT PT CONSTANTLY YELLING OUT THAT SHE COULDN'T BREATH, DIDN'T WANT TO BE LEFT ALONE, AND HELP ME! IV LORAZEPAM GIVEN AND PT ABLE TO SLEEP REST OF NIGHT. ASSISTED WITH REPOSITIONING. O2 ON PER BIPAP WITH 55% FIO2, HOB ELEVATED. IV LASIX GIVEN WITH LG URINE OUTPUT. PT HAVING GENERALIZED EDEMA. IV SITE TO RT GROIN PATENT X3. TELEMETRY ON SHOWING SR/ST. HS GOALS OF REST AND SAFETY ACHIEVED.
[2020-06-11 07:30] VITALS: BP 138/76
[2020-06-11 12:00] VITALS: BP 139/70
--- NOTE | 2020-06-11 12:59 | NUR ---
Pulm following. Pt remains on bipap prn and 15L HF NC
--- NOTE | 2020-06-11 13:52 | NUR ---
esther labs from central line in right groin. all ports draw blood and all ports flush easily.
[2020-06-11 14:10] LABS: HEMATOCRIT 39.4 % (37.0-47.0); HEMOGLOBIN 12.4 gm/dL (12.0-15.0); MCH 27.7 pg (26.0-34.0); MCHC 31.6 g/dL (28.0-37.0); MCV 87.6 fL (80.0-100.0); MPV 7.1 fl. (7.2-11.1); NUCLEATED RBCS 0 /100WBC; PLATELET COUNT* 520 thou/uL (150-400); RDW-CV 15.3 % (10.5-14.5); WBC 15.4 thou/uL (4.0-11.0)
[2020-06-11 14:11] LABS: BE 12.7 mmol/L (-2 to +3); PCO2 VENOUS 63.6 mmHg (41.0-51.0)
[2020-06-11 14:31] LABS: ALBUMIN 2.9 g/dL (3.4-5.0); CALCIUM 8.7 mg/dL (8.5-10.1); CREATININE 0.8 mg/dL (0.6-1.3); TOTAL BILIRUBIN 0.9 mg/dL (<0.1-1.0); TOTAL PROTEIN 6.5 g/dL (6.4-8.2)
[2020-06-11 14:33] LABS: POTASSIUM 2.8 mmol/L (3.5-5.1)
[2020-06-11 14:49] LABS: ABSOLUTE EOSINOPHILS 0.2 thou/uL (0.0-0.7); ABSOLUTE LYMPHOCYTES 2.8 thou/uL (0.8-5.3); ABSOLUTE MONOCYTES 1.1 thou/uL (0.0-1.2); ABSOLUTE NEUTROPHILS 11.4 thou/uL (1.6-8.1); PLATELET ESTIMATE INCREASED
[2020-06-11 14:50] LABS: HYPOCHROMASIA Occasional
--- NOTE | 2020-06-11 15:30 | NUR ---
A& O X PERSON AND PLACE. SISTER AT BEDSIDE MOST OF SHIFT. SISTER WITH ANXIETY SEEMS TO MAKE PT ANXIOUS. PRN ATIVAN GIVEN TO PT. WHEN 02 SAT STARTED DROPPING. PT WAS SITTING UP IN CHAIR AT THIS TIME. PT PUT BACK TO BED. RT CALLED FOR A TREATMENT AND POSSIBLE TO PUT BACK ON BI-PAP. PT TOLERATED RT TREATMENT AND CURRENTLY RESTING IN BED WITH HIGH FLOW 02 AT 15L. 02 SAT AT THIS TIME 94-95%. PT'S POTASSIUM 2.8 AND PT IS ON MAG-POTASSIUM PROTOCOL AND 40MEQ K+ GIVEN TO PT PO. WILL GIVE ANOTHER DOSE IN 2 HOURS AND REPEAT BLOOD DRAW AT 2039. CALL LIGHT WITHIN REACH. WILL CONTINUE TO MONITOR.
[2020-06-11 16:00] VITALS: BP 141/75
[2020-06-11 20:00] VITALS: BP 188/103
[2020-06-12] VITALS: BP 146/86
[2020-06-12 04:00] VITALS: BP 121/59
--- NOTE | 2020-06-12 05:04 | NUR ---
YELLING OUT CONSTANTLY DURING EVENING BUT PT ABLE TO SETTLE DOWN AND THEN SLEPT ALL NIGHT. ASSISTED WITH REPOSITIONING. HS BS VERY LOW OF 38, JUICE GIVEN ALONG WITH APPLESAUCE WITH HS MEDS, BS THEN 133. INSULIN LANTUS AND HUMALOG HELD. ABLE TO TOLERATE BIPAP ALL NIGHT. TELEMETRY ON SHOWING SR. HS GOALS OF REST, SAFETY AND OXYGENATION ACHIEVED.
[2020-06-12 05:31] LABS: HEMATOCRIT 33.2 % (37.0-47.0); HEMOGLOBIN 10.7 gm/dL (12.0-15.0); MCH 28.1 pg (26.0-34.0); MCHC 32.2 g/dL (28.0-37.0); MCV 87.3 fL (80.0-100.0); MPV 7.5 fl. (7.2-11.1); RBC 3.8 mil/uL (4.20-5.00); RDW-CV 15.1 % (10.5-14.5); WBC 9.1 thou/uL (4.0-11.0)
[2020-06-12 05:45] LABS: CALCIUM 8.2 mg/dL (8.5-10.1); CREATININE 0.6 mg/dL (0.6-1.3); POTASSIUM 4.3 mmol/L (3.5-5.1)
--- NOTE | 2020-06-12 07:05 | NUR ---
CHANGE OF SHIFT REPORT GIVEN PATIENT SEEN AT BEDSIDE, IN BED SITTING UP ON BIPAP ASSUMED PATIENT CARE
[2020-06-12 08:00] VITALS: BP 183/80
--- NOTE | 2020-06-12 11:07 | NUR ---
DUE TO PATIENT ANXIETY AND CLEAR OVERT S/S ASPIRATION/PENETRATION C THIN LIQUIDS, A VIDEO SWALLOW STUDY IS NOT APPROPRIATE AT THIS TIME. HAS AND WILL CONTINUE TO PROVIDE DYSPHAGIA TX AND DIET MODIFICATIONS/TRIALS IN ACCORDANCE C THE POC. PLEASE SEE SWALLOWING TREATMENT NOTES FOR MORE DETAILS.
[2020-06-12 12:00] VITALS: BP 179/76
--- NOTE | 2020-06-12 12:43 | NUR ---
Pt continues to be anxious, son here to visit. Remains on bipap, fio2 55% or [address] to contact family to discuss POC.
[2020-06-12 16:00] VITALS: BP 144/72
[2020-06-12 16:11] LABS: CALCIUM 9.2 mg/dL (8.5-10.1); CREATININE 0.8 mg/dL (0.6-1.3)
[2020-06-12 16:12] LABS: BE 11.4 mmol/L (-2 to +3); PCO2 VENOUS 60.4 mmHg (41.0-51.0); PO2 VENOUS 205.6 mmHg (35.0-45.0)
[2020-06-12 20:00] VITALS: BP 190/79
--- NOTE | 2020-06-13 04:40 | NUR ---
AT AROUND 2046 HRS,AEROSOL TX WAS GIVEN. PT REFUSED TO WEAR BIPAP AT THIS TIME. AROUND 0000 HRS AND 0430 HRS,PT ASLEEP W/NO RESP DISTRESS OR SOB. PT HAS BEEN WEARING 10L HFNC.WALTER WELL.SLEEPING VERY COMFORTABLY,RN AGREES.WILL MONITOR CLOSELY.
[2020-06-13 05:35] LABS: HEMATOCRIT 35.4 % (37.0-47.0); HEMOGLOBIN 11.2 gm/dL (12.0-15.0); MCH 27.9 pg (26.0-34.0); MCHC 31.6 g/dL (28.0-37.0); MCV 88.2 fL (80.0-100.0); MPV 7.3 fl. (7.2-11.1); RBC 4.01 mil/uL (4.20-5.00); RDW-CV 15.3 % (10.5-14.5)
[2020-06-13 05:52] LABS: CALCIUM 8.6 mg/dL (8.5-10.1); CREATININE 0.5 mg/dL (0.6-1.3); POTASSIUM 3.8 mmol/L (3.5-5.1)
[2020-06-13 08:30] VITALS: BP 152/84
--- NOTE | 2020-06-13 11:38 | NUR ---
Family meeting today to discuss POC. Pt remains anxious when staff/family not in room. Remains on bipap, when complaint. Requiring 10L NC
--- NOTE | 2020-06-13 11:57 | NUR ---
ASSUMED CARE OF PT AT 0730. PT A&0X2, FORGETFUL, CONFUSED, IMPULSIVE, AGITATED AND VERY ANXIOUS. PT REFUSING TO KEEP BIPAP ON. PT DE SATS IN THE 70'S WHEN BIPAP REMOVED. PRN ATIVAN GIVEN AT APPROX 1120 AND PT CURRENTLY ON 8L HIGH FLOW NC SAT 90-91%. FAMILY MEETING COMPLETED WITH DAUGHTER AT BEDSIDE. PT MADE DNR. TRACING ST ON THE PEDIATRICS TEACHER-RATE IN THE 120'S. BOOTH TO DEPENDENT DRAINAGE. PT GOAL FOR TODAY IS MAINTIAN O2 SAT ABOVE 90% AND PAIN AND ANXIETY MGMT. AM ASSESSMENT CHARTED. MEDICATIONS PER AUG. PT REPOSITIONED EVERY 2 HOURS FOR COMFORT. HOURLY ROUNDING OBSERVED. BED IN LOW POSITION. BED ALARM IN PLACE. FALL PRECAUTIONS IN PLACE. CALL LIGHT WITHIN REACH. WILL CONTINUE PLAN OF CARE.
[2020-06-13 12:00] VITALS: BP 152/84
[2020-06-13 16:00] VITALS: BP 149/79
[2020-06-13 19:27] LABS: BE 8.6 mmol/L (-2 to +3); PCO2 VENOUS 62.7 mmHg (41.0-51.0); PO2 VENOUS 39.3 mmHg (35.0-45.0)
[2020-06-13 20:00] VITALS: BP 179/80
[2020-06-14] VITALS: BP 133/75
--- NOTE | 2020-06-14 01:53 | NUR ---
PASSED ON IN REPORT TO CALL VENOUS ABG RESULTS TO . SPOKE WITH AT APPROXIMATELY 1945 AND UPDATED WITH RESULTS. STATED THAT PATIENT SHOULD CONTINUE ON BIPAP OR HOME TRILOGY AT [facility] AND THAT IT IS OK TO DISCONTINUE CENTRAL LINE IF ATTENDING ORDERS IT DISCONTINUED.
[2020-06-14 05:04] LABS: ABSOLUTE LYMPHOCYTES 0.7 thou/uL (0.8-5.3); ABSOLUTE MONOCYTES 0.6 thou/uL (0.0-1.2); ABSOLUTE NEUTROPHILS 8.9 thou/uL (1.6-8.1); BASOPHILS 0.2 %; EOSINOPHILS 0.4 %; HEMATOCRIT 33.8 % (37.0-47.0); HEMOGLOBIN 10.7 gm/dL (12.0-15.0); LYMPHOCYTES 7.2 %; MCH 27.9 pg (26.0-34.0); MCHC 31.6 g/dL (28.0-37.0); MCV 88.4 fL (80.0-100.0); MONOCYTES 5.6 %; MPV 7.6 fl. (7.2-11.1); NUCLEATED RBCS 0 /100WBC; PLATELET COUNT* 429 thou/uL (150-400); POLYS 86.6 %; RBC 3.82 mil/uL (4.20-5.00); RDW-CV 15.2 % (10.5-14.5); WBC 10.3 thou/uL (4.0-11.0)
[2020-06-14 05:19] LABS: ALBUMIN 2.3 g/dL (3.4-5.0); CALCIUM 8.2 mg/dL (8.5-10.1); CREATININE 0.6 mg/dL (0.6-1.3); MAGNESIUM 2.3 mg/dL (1.8-2.4); TOTAL BILIRUBIN 0.6 mg/dL (<0.1-1.0); TOTAL PROTEIN 5.9 g/dL (6.4-8.2)
--- NOTE | 2020-06-14 11:04 | NUR ---
CM spoke with dtr, plan for Pt to dc home with hospice. Dtr contacting family to determine hospice choice and will call CM back. Plan to have DME delivered to the home today and plan dc to home tomorrow with hospice. Following.
[2020-06-14 11:50] VITALS: BP 120/69
[2020-06-14 20:00] VITALS: BP 125/75
--- NOTE | 2020-06-14 21:51 | NUR ---
PT HAS RESTED T/O DAY INTERMITTENTLY. DID MAKE ATTEMPTS AT TRYING TO TAKE PT OFF BIPAP X2 WITHOUT SUCCESS. PT O2 SAT DROPPED DOWN TO 77% AND PT PLACED BACK ON BIPAP. PT DOES NOT MAINTAIN BIPAP IN PLACE. PT STILL HAS CENTRAL LINE IN PLACE WITH PHYSICIAN RECOMMENDATION UNTIL WE ARE CERTAIN PT WILL DISCHARGE BECAUSE OF POOR PERIPHERAL ACCESS. FAMILY DID AGREE ON HOSPICE CARE WITH THU. DME SET UP IN HOME THIS EVENING. NOTHING FURTHER AT THIS TIME.CLWR.WCTM
--- NOTE | 2020-06-15 04:41 | NUR ---
ASSUMED CARE OF PATIENT AT 1930. PATIENT REFUSING PO MEDICATIONS. PATIENT ANXIOUS AND FREQUENTLY YELLS OUT THAT SHE CANT BREATHE DESPITE OXYGEN SATURATIONS IN UPPER 90s. PATIENT NON-COMPLIANT WITH BIPAP AND REMOVES MASK FREQUENTLY. PRN MORPHINE AND ATIVAN EFFECTIVE
[2020-06-15 04:58] VITALS: BP 121/76
[2020-06-15 05:55] LABS: CALCIUM 8.8 mg/dL (8.5-10.1); CREATININE 0.7 mg/dL (0.6-1.3)
[2020-06-15 08:00] VITALS: BP 132/80
--- NOTE | 2020-06-15 08:00 | NUR ---
ASSUMED CARE OF PATIENT THSI MORNING FROM NIGHT NURSE. PT IS ON THE BIPAP AND APPEARS COMFORTABLE. BED IN LOWEST POSITIO, CALL LIGHT IN REACH.
--- NOTE | 2020-06-15 08:53 | NUR ---
Plan dc to home today with [facility]. DME delivered to Pt's home last evening. CM spoke with Pt's son this morning to confirm delivery. Son working on getting the house ready today, ambulance to pickle processor and transport Pt home at 330pm. CM updated Patricia at [facility]. CM to fax dc orders.
[2020-06-15 12:00] VITALS: BP 142/76
[2020-06-15 12:54] VITALS: BP 132/80
[2020-06-15 13:00] VITALS: BP 132/80
== END 2020-06-15 16:30 | disposition hospice, home (50) | DRG 177 ==
LOC: M.ERS 11:15 → M.2W 12:32 → M.TBA-ER 12:32 → M.2W 18:42 → M.3W 06-03 21:28 → M.2W 06-04 11:04
PROVIDERS: Family Medicine; Internal Medicine; Internal Medicine Critical Care Medicine; Nurse Practitioner Family; ADMIT Family Medicine; ATTEND Family Medicine
DX: J69.0 Pneumonitis due to inhalation of food and vomit (principal); J96.22 Acute and chronic respiratory failure with hypercapnia; J96.21 Acute and chronic respiratory failure with hypoxia; R53.2 Functional quadriplegia; I50.22 Chronic systolic (congestive) heart failure; J44.1 Chronic obstructive pulmonary disease with (acute) exacerbation; J98.11 Atelectasis; D68.59 Other primary thrombophilia; E87.0 Hyperosmolality and hypernatremia; Z20.822 Contact with and (suspected) exposure to COVID-19; E11.9 Type 2 diabetes mellitus without complications; E66.01 Morbid (severe) obesity due to excess calories; E03.9 Hypothyroidism, unspecified; Z96.653 Presence of artificial knee joint, bilateral; D64.9 Anemia, unspecified; G89.29 Other chronic pain; E87.6 Hypokalemia; I71.4 Abdominal aortic aneurysm, without rupture; K80.20 Calculus of gallbladder without cholecystitis without obstruction; I87.2 Venous insufficiency (chronic) (peripheral); R74.01 Elevation of levels of liver transaminase levels; F41.9 Anxiety disorder, unspecified; E87.70 Fluid overload, unspecified; I11.0 Hypertensive heart disease with heart failure; Z66 Do not resuscitate; J84.10 Pulmonary fibrosis, unspecified; Z91.19 Patient's noncompliance with other medical treatment and regimen; Z79.01 Long term (current) use of anticoagulants; Z87.891 Personal history of nicotine dependence; Z82.49 Family history of ischemic heart disease and other diseases of the circulatory system; Z79.891 Long term (current) use of opiate analgesic; Z83.6 Family history of other diseases of the respiratory system; Z88.6 Allergy status to analgesic agent; Z90.49 Acquired absence of other specified parts of digestive tract; Z86.718 Personal history of other venous thrombosis and embolism; Z68.39 Body mass index [BMI] 39.0-39.9, adult

== ENCOUNTER 2020-06-15 18:25 | Emergency (ER) | payer OTHER, MEDICARE, MEDICAID ==
[~2020-06-15] VITALS: Ht 157.5 cm; Wt 97.5 kg
[2020-06-15 18:29] VITALS: BP 196/99
[2020-06-15 18:55] LABS: HEMATOCRIT 39.7 % (37.0-47.0); HEMOGLOBIN 12.4 gm/dL (12.0-15.0); MCHC 31.3 g/dL (28.0-37.0); MCV 89.3 fL (80.0-100.0); MPV 7.6 fl. (7.2-11.1); NUCLEATED RBCS 0 /100WBC; RBC 4.44 mil/uL (4.20-5.00); RDW-CV 15.6 % (10.5-14.5); WBC 17.7 thou/uL (4.0-11.0)
[2020-06-15 18:57] LABS: PLATELET COUNT* 525 thou/uL (150-400)
[2020-06-15 19:01] LABS: CALCIUM 8.9 mg/dL (8.5-10.1); CREATININE 1.2 mg/dL (0.6-1.3); POTASSIUM 4.5 mmol/L (3.5-5.1)
[2020-06-15 19:09] LABS: URINE BLOOD 2+ (Negative); URINE CLARITY CLEAR; URINE COLOR YELLOW; URINE GLUCOSE-RANDOM NEGATIVE (Negative); URINE KETONES NEGATIVE (Negative); URINE LEUKOCYTES NEGATIVE (Negative); URINE NITRITE NEGATIVE (Negative); URINE PROTEIN 1+ (Negative); URINE SPECIFIC GRAVITY 1.025 (1.005-1.030); URINE UROBILINOGEN 0.2 E.U./dl (0.2-1.0)
[2020-06-15 19:10] LABS: ICTOTEST (BILI CONFIRMATORY) Negative (Negative); URINE BILIRUBIN 1+ (Negative)
[2020-06-15 19:12] LABS: ALBUMIN 2.7 g/dL (3.4-5.0); MAGNESIUM 2.4 mg/dL (1.8-2.4); PHOSPHORUS* 3.4 mg/dL (2.5-4.9); TOTAL BILIRUBIN 0.7 mg/dL (<0.1-1.0); TOTAL PROTEIN 6.9 g/dL (6.4-8.2)
[2020-06-15 19:21] LABS: SQUAMOUS 0-3 Few /LPF (0-3)
[2020-06-15 19:22] LABS: BACTERIA >30 Many /HPF (None Seen); CASTS None Seen /LPF (None Seen); CRYSTALS None Seen /LPF (None Seen); URINE RBC 0-2 Rare /HPF (0-2); URINE WBC >25 Many /HPF (0-5)
[2020-06-15 19:25] LABS: ABSOLUTE LYMPHOCYTES 0.4 thou/uL (0.8-5.3); ABSOLUTE MONOCYTES 0.9 thou/uL (0.0-1.2); ABSOLUTE NEUTROPHILS 16.5 thou/uL (1.6-8.1)
[2020-06-15 19:26] LABS: PLATELET ESTIMATE INCREASED
[2020-06-15 19:50] LABS: BE 3.3 mmol/L (-2 to +3); pH 7.328 (7.340-7.450)
[2020-06-15 19:53] LABS: PCO2 59.8 mmHg (35.0-45.0); PO2 147.7 mmHg (75.0-100.0)
[2020-06-16 06:15] VITALS: BP 0/0
--- NOTE | 2020-06-18 10:02 | EKG ---
[place] [address] ELECTROCARDIOGRAM REPORT Name: BREANA GALEAS Room: [facility]#: [id number] Admission: 06/15/20 Attend Phys: Discharge: 06/16/20 Date of : 45 Date of Service: 06/15/20 1846 Report #: [id number] THIS REPORT FOR: //name// [facility] ED Test Date: 2020-06-15 Test Time: 18:46:53 Pat Name: BREANA GALEAS Department: Room: Gender: F Vasc Tech: : 1945 Requested By: Elif Watson Order Number: [id number] Guadalupe MD: Richar Mora Measurements Intervals [place] Rate: 134 P: 63 IN: 114 QRS: 67 QRSD: 97 T: 73 QT: 293 QTc: 438 Interpretive Statements Sinus tachycardia Baseline wander in lead(s) V4 Compared to ECG 06/05/2020 11:24:34 No significant changes Electronically Signed On 06-18-2020 10:02:01 SCHEME TECHNICIAN by Richar Mora [email or web address] <ELECTRONICALLY SIGNED> By: Richar Mora MD, [facility] 06/18/20 1002 1846 1846 Richar Mora MD, [facility] /EPI
== END 2020-06-16 06:15 ==
LOC: M.ERS 18:25 → M.TBA-ER 06-16 05:00 → M.ERS 06-16 05:00
PROVIDERS: Emergency Medicine
DX: U07.1 COVID-19 (principal); J12.82 Pneumonia due to coronavirus disease 2019; J96.90 Respiratory failure, unspecified, unspecified whether with hypoxia or hypercapnia; J44.1 Chronic obstructive pulmonary disease with (acute) exacerbation; I11.0 Hypertensive heart disease with heart failure; I50.9 Heart failure, unspecified; E66.01 Morbid (severe) obesity due to excess calories; E03.9 Hypothyroidism, unspecified; Z87.891 Personal history of nicotine dependence; Z88.6 Allergy status to analgesic agent; Z88.8 Allergy status to other drugs, medicaments and biological substances; Z79.899 Other long term (current) drug therapy; Z79.4 Long term (current) use of insulin; Z96.653 Presence of artificial knee joint, bilateral; Z86.718 Personal history of other venous thrombosis and embolism; Z98.890 Other specified postprocedural states